=== PATIENT | male | born 1945 | race Caucasian/White ===

== ENCOUNTER → 2019-07-31 14:11 | Outpatient (POV) | payer MEDICARE, SELFPAY | PROVIDERS: Visit Provider Dermatology | DX: Z00.00 Encounter for general adult medical examination without abnormal findings (principal) ==

== ENCOUNTER → 2020-04-25 07:42 | Outpatient (CLI) | payer MEDICARE, SELFPAY ==
[2020-04-25 08:28] LABS: Basophils % 0.6 % (0.1-2.0); Eosinophils # 0.1 K/mm3 (0.0-0.4); Eosinophils % 2.1 % (0.1-12.0); Hematocrit 47.5 % (42.0-52.0); Lymphocytes # 1.5 K/mm3 (0.7-4.5); Lymphocytes % 28.4 % (10-50); Mean Corpuscular HGB Conc 33.7 g/dL (31.8-35.4); Mean Corpuscular Volume 94.9 fl (80-94); Mean Platelet Volume 8.8 fl (7.4-10.4); Monocytes # 0.5 K/mm3 (0.1-1.0); Monocytes % 8.4 % (1.7-9.3); Neutrophils # 3.3 K/mm3 (1.8-7.8); Neutrophils % 60.5 % (37.0-80.0); Platelet Count 150 K/mm3 (142-424); Red Cell Distribution Width 14.2 % (11.5-17.5); White Blood Count 5.4 K/mm3 (4.8-10.8)
[2020-04-25 09:21] LABS: Erythrocyte Sedimentation Rate 52 mm/hr (0-20)
[2020-04-25 12:45] LABS: Alanine Aminotransferase 24 U/L (12-78); Albumin Level 4.1 g/dl (3.5-5.0); Albumin/Globulin Ratio 1.4 (1.1-1.8); Alkaline Phosphatase 98 U/L (38-126); Anion Gap 12.1 mEq/L (5-15); Aspartate Amino Transferase 28 U/L (17-59); Bilirubin,Total 0.7 mg/dl (0.2-1.3); Blood Urea Nitrogen 20 mg/dl (9-20); Calcium 9.6 mg/dl (8.4-10.2); Carbon Dioxide 31 mmol/L (22.0-30.0); Chloride 100 mmol/L (98-107); Chol/HDL Ratio 4.7 (1-3.5); Cholesterol 211 mg/dl (140-200); Estimated Glomerular Filt Rate 73 ml/min (>60); GFR (African American) 88 ML/MIN (>60); Globulin 2.9 g/dL (1.3-3.2); Glucose 113 mg/dl (74-100); HDL Cholesterol 45 mg/dl (40-60); Potassium 5.1 mmoL/L (3.5-5.1); Sodium 138 mmol/L (136-145); Triglycerides 135 mg/dl (30-150); Uric Acid 7.8 mg/dl (3.5-8.5); VLDL Cholesterol 27 mg/dL (0-40)
[2020-04-25 12:56] LABS: Direct LDL Cholesterol 144.59 mg/dL (100-129)
== END ==
PROVIDERS: Visit Provider Internal Medicine Adolescent Medicine
DX: Z00.00 Encounter for general adult medical examination without abnormal findings (principal); M10.9 Gout, unspecified; R73.09 Other abnormal glucose; E78.00 Pure hypercholesterolemia, unspecified
CPT/HCPCS: 36415; 80053; 80061; 83036; 84550; 85025; 85651

== ENCOUNTER 2022-02-10 09:00 | Outpatient (RCR) | payer MEDICARE, SELFPAY ==
--- NOTE | 2021-12-17 13:07 | HMH.SLDYSPHA ---
Speech & Language Evaluation Speech/Language Dysphagia Evaluation Start: 12/17/21 12:38 Freq: ONCE Status: Active Protocol: Document 12/17/21 12:38 MIAH (Rec: 12/17/21 13:07 MIAH [id number]) Dysphagia Assess/Goals/Plan Assessment Date of Evaluation: 12/17/21 Evaluation Type Initial Certification Assessment/Problems Coughing while eating and drinking. Does Patient Qualify for Service No Qualify/Failure Comment No overt s/sxs of aspiration at this time. ASSEMBLY MANAGER discussed results of bedside swallow evaluation with patient and spouse as well as options i.e. MBSS versus clinical swallow evaluation results and recommendations. Patient and family opted for MBSS at this time. Recommendations PHYSICIAN CERTIFICATION: The specified therapy services are required, authorized, and reviewed every 30 days. Diet Recommendations Normal Liquid Type Recommendations Normal/Thin Dysphagia Swallow Precautions/Strategies Sitting Upright (90 deg),Small Bites and Sips Place Food on Either side of Mouth Plan Pt/Guardian verbally ack understanding Yes of dx/prognosis/goals Pt/Guardian verbally ack understanding Yes of/consent to tx prog G -code Required No Education Instructions provided CSE results and diet recommendations discussed with patient and family who expressed understanding. Pt/Caregiver able to recall information Able to recall/restate Reinforcement needed No General Information General Current Food Consistancy Regular,Thin Liquids Dentition Good Dentition Oxygen Status Room Air Facial Symmetry Symmetrical Patient Orientation Person,Place,Time,Situation Ability to Follow Directions Excellent Communication Ability Mild Impairment Voice Voice Quality Harsh,Hoarse,Loss of Voice Voice Pitch Mildly Low,Limited Variation, Pitch Breaks Voice Loudness Mildly Soft/Quiet Dysphagia:Food Presentation Evaluation Food Type Pureed,Mechanical Soft,Regular ,Liquid,Pudding Dysphagia Evaluation Summary Clinical swallow evaluation completed to analyze and asses oropharyngeal swallow. Patient was given trials of
--- NOTE | 2021-12-17 13:08 | HMH.SLVOIC ---
Speech & Language Evaluation Speech/Language Voice Evaluation Start: 12/17/21 12:38 Freq: once Status: Complete Protocol: Document 12/17/21 12:38 LEILANIANGELIATERISHANELLE (Rec: 12/17/21 13:07 MIAH [id number]) Voice/Dysarthria Assessment/Goals/Plan Assessment/Problems Date of Evaluation: 12/17/21 Assessment/Problems Dysphonia, presbylaryngis. Does Patient Qualify for Service Yes Qualify/Failure Comment Based on ENT diagnosis and voice evaluation, pt would benefit from skilled speech therapy services to address dysphonia and presbylaryngis. Recommendations Pt will be seen # times/week 1 for # weeks 8 Plan Anticipate reaching STG in # weeks 4 Anticipate reaching LTG in # weeks 8 Pt/Guardian verbally ack understanding Yes of dx/prognosis/goals Pt/Guardian verbally ack understanding Yes of/consent to tx prog G -code Required No Short Term Goals Educated on & eliminate vocal abuse Yes behaviors Use easy initiation of phonation for Yes prod of best voice 8/10 trials Inc loudness level wo inc laryngeal Yes tension 8/10 trials Inc easy initial of phonation using best Yes vocal quality habitually 8/10 [employer] Travel Counselor Goals Improve overall quality to increase/ Yes improve communication with family/ friends. Education Instructions provided NON MORSE INTERCEPT TECHNICIAN discussed results of the voice evaluation with both patient and spouse, both of whom expressed understanding. NON MORSE INTERCEPT TECHNICIAN provided pt with a handout with information to reduce vocally abusive behaviors. Pt/Caregiver able to recall information Able to recall/restate Reinforcement needed No SL Voice & Resonance Eval Communication/Cognition Orientation Name,Place,Day,Date,Year Ablility to follow commands 2-step commands Intelligibility Good Oral-Motor Structure/Function Structure/Function Yes: Buccal Labial Lingual Mandibular Velar Other Facial Symmetry Symmetrical Laryngeal Function STRNG: Throat Clearing WEAK: Voluntary Cough Dentition Good Dentition Resp Status/History Resp status/hx a concern? No Oxygen Delivery Method Room Air Mouth breather No Risk fatigue due to compromised res
== END 2022-02-10 09:05 | disposition home or self-care (01) ==
LOC: ST 09:00
PROVIDERS: Visit Provider Otolaryngology
DX: R49.0 Dysphonia (principal); J38.7 Other diseases of larynx
CPT/HCPCS: 92507; 92524; 92610

== ENCOUNTER → 2022-10-14 12:46 | Outpatient (CLI) | payer MEDICARE, SELFPAY ==
--- NOTE | 2022-10-14 12:53 | CA_ITS ---
FINAL REPORT TECHNIQUE: Multiple transverse and longitudinal images were performed of right the femoral-popliteal deep venous system with augmentation and compression maneuvers. CLINICAL HISTORY: .TOTAL KNEE POST OP 1 MONTH PAIN/EDEMA FINDINGS: Right lower extremity duplex ultrasound demonstrates normal flow in the deep venous system. There is no abnormal echogenicity to suggest thrombus. There is normal compression and augmentation. IMPRESSION: No evidence of right DVT. Reviewed, Interpreted and Dictated by Shivam Malik MD Transcribed by Alisa Sanchez Authenticated and [facility]
== END ==
PROVIDERS: PCP Family Medicine; Visit Provider Physician Assistant
DX: M25.561 Pain in right knee (principal); Z96.651 Presence of right artificial knee joint; R60.0 Localized edema
CPT/HCPCS: 93971

== ENCOUNTER 2022-12-28 09:00 | Outpatient (RCR) | payer MEDICARE, SELFPAY | END 2022-12-28 09:05 | disposition home or self-care (01) | LOC: PT 09:00 | PROVIDERS: Visit Provider Orthopaedic Surgery | DX: M25.561 Pain in right knee (principal); Z96.651 Presence of right artificial knee joint | CPT/HCPCS: 97010; 97014; 97016; 97110; 97140; 97163; 97164; 97530; G0283 ==

== ENCOUNTER 2023-03-03 10:00 | Outpatient (RCR) | payer MEDICARE, SELFPAY | END 2023-03-03 10:05 | disposition home or self-care (01) | LOC: PT 10:00 | PROVIDERS: PCP Family Medicine; Visit Provider Orthopaedic Surgery Adult Reconstructive Orthopaedic Surgery | DX: M16.11 Unilateral primary osteoarthritis, right hip (principal); Z96.641 Presence of right artificial hip joint | CPT/HCPCS: 97010; 97014; 97110; 97163; 97530; G0283 ==

== ENCOUNTER → 2023-05-04 07:49 | Outpatient (CLI) | payer MEDICARE, SELFPAY ==
--- NOTE | 2023-05-04 | CA_ITS ---
APPROVED REPORT Exam: Pharmacologic Technologist: Galilea Wright, Ht: 5 ft 9 in Wt: 200 lbs BSA: 2.07 m2 HR: 64 bpm BP: 133/87 mmHg Rhythm: NSR Indications: Right bundle branch block Medical History Medications: Aspirin,,,,, NiACIN,,,,, StOol softner,,,,, TUmeric,,,,, LanTropose,,,,, Timerol,,,,, Stress Test Details Test: LEXISCAN Reason for pharmacologic stress test: physical limitation. HR Resting HR: 66 bpm Max Heart Rate (APMHR): 141 bpm Max HR Achieved: 107 bpm Target HR (85% APMHR): 120 bpm % of APMHR: 76 Recovery HR: 81 bpm BP Resting BP: 133.0/87.0 mmHg Max BP: 149.0/81.0 mmHg Recovery BP: 147.0/81.0 mmHg ECG Resting ECG: NSR, RBBB, LPFB, NS ST abnormalities inferiorly Stress ECG: No significant ST changes Arrhythmia: None Clinical Exercise duration: 04:00 min Highest Stage Achieved: Stress ECG Conclusion Symptoms: Brief chest pressure. Nausea Arrhythmias/Ectopy: None. ST-T Changes: No significant ST changes Conclusion: Unremarkable Lexiscan stress test. Myoview images are reported separately. Test Summary REST . . . . . . . Resting REST 03:55 . . 66 . 133/ 87 . . Stage 1 . . . . . . . Myoview Injected Stage 1 01:00 . . 99 . . . . Stage 2 . . . . . . . Nausea Stage 2 . . . . . . . chest pressure Stage 2 01:00 . . 104 . 148/ 91 . . Stage 3 01:00 . . 98 . 149/ 81 . . Stage 4 01:00 . . 92 . 128/ 82 . Stop exercise at 04:00 RECOVERY 01:00 . . 96 . 136/ 83 . . RECOVERY 02:00 . . 92 . 135/ 85 . . RECOVERY 03:00 . . 84 . 147/ 81 . . RECOVERY 03:23 . . 87 . 147/ 81 . . Electronically signed by : Kayce King MD 05/08/2023 00:49:19
--- NOTE | 2023-05-04 07:54 | NM_ITS ---
APPROVED REPORT Exam: Nuclear Stress Test Indication: chest pain..soa..fatigue..family hx Patient Location: Outpatient Stress Tech: Galilea Wright [place] Tech:BRADLEY Kenyon RT(R)(N) Ht: 5 ft 9 in Wt: 200 lbs HR: 66 bpm BP: 133/87 mmHg BSA: 2.07 m2 TID: 1.12 BMI: 29.5 History: chest pain..soa..fatigue..family hx Procedure: Patient received 0.4 mg of intravenous Lexiscan, resting heart rate 66 bpm, resting blood pressure 133/87 mmHg, with Lexiscan maximum heart rate achieved was 107 bpm which is 85 % of the maximum predicted heart rate and blood pressure was 149/81 mmHg. With Lexiscan, patient denied any complaint of chest pain. The patient was not able to lay on his abdomen for prone images because of his back hurting. Cardiac Stress and Resting SPECT Images: Cardiac Stress and Resting SPECT images were obtained using technetium 99m Myoview 31.7 mCi stress and 10.22 mCi at rest. The patient could not lie on his abdomen. Therefore, prone stress imaging could not be performed. Raw images also demonstrate significant diaphragmatic overlap with the inferior border of the LV wall. These findings may affect the diagnostic interpretation of the study. Resting and stress imaging in supine position demonstrate a medium sized, moderate, fixed and tapered perfusion defect in the inferior LV wall. Findings are most suggestive of diaphragmatic attenuation. Gated imaging demonstrates normal global and regional LV systolic function. LVEF is calculated at 53%. Conclusion: Diaphragmatic attenuation is present. No definite evidence of fixed or reversible perfusion defects. Gated imaging demonstrates normal global and regional LV systolic function. LVEF is calculated at 53%. Electronically signed by : Kayce King MD 05/08/2023 00:54:03
== END ==
PROVIDERS: PCP Family Medicine; Visit Provider Family Medicine
DX: R07.9 Chest pain, unspecified (principal)
CPT/HCPCS: 78452; 93017; A9502; J2785

== ENCOUNTER 2024-12-28 10:02 | Outpatient (CLI) | payer MEDICARE, SELFPAY ==
--- OUTSIDE RECORDS SUMMARY | 2011-05-03 07:30 | XMS_ITS | Continuity of Care Document ---
Author Organization [facility] Address [address] [address] Phone Care Team Providers Care Percussion Instructor Name Role Phone Unavailable Unavailable Unavailable Allergies, Adverse Reactions, Alerts Substance Reaction Status Criticality No Known allergies Medications Medication Instructions Dosage Effective Dates (start - stop) Status Comments Vesicare 5 mg Tab take 1 tablet (5MG) by oral route every day 5 MG - Active aspirin 325 mg Tab, Delayed Release take 1 tablet (325MG) by oral route every day as needed 325 MG - Active Procedures Procedure Date URINALYSIS, AUTO W/SCOPE ASSAY OF URINE CREATININE OFFICE/OUTPATIENT VISIT, EST ASSAY OF PSA, TOTAL TESTOSTERONE TOTAL TESTOSTERONE BIOAVAILABLE TESTOSTERONE ROUTINE VENIPUNCTURE PSA, TOTAL TOTAL TESTOSTERONE BIOAVAILABLE TESTOSTERONE CYTOPATH, CONCENTRATE TECH CYTOPATH, CONCENTRATE TECH CYTOPATH, CONCENTRATE TECH CYTOPATH, CONCENTRATE TECH TISSUE EXAM BY PATHOLOGIST US GUIDE FOR BIOPSY Prostate, Transrectal BIOPSY OF PROSTATE OFFICE/OUTPATIENT VISIT, NEW URINALYSIS, AUTO W/SCOPE ASSAY OF URINE CREATININE HEMATOCRIT TOTAL TESTOSTERONE BIOAVAILABLE TESTOSTERONE ROUTINE VENIPUNCTURE Results Test Name Date and Time Measure Units Reference Range Abnormal Flag Status Comments Panel Description: PSA Preliminary PSA 7.29 ng/mL 0.05-4.00 H Preliminary Panel Description: PSA Final PSA 7.29 ng/mL 0.05-4.00 H Final Panel Description: BioAvail TEST Preliminary SHBG 43 nmol/L 11-80 Preliminary Testosterone -TOT 346 ng/dL 350-890 L Preliminary TESTOST,FREE ng/dL 4.7-24.4 Preliminar y BioAvail TEST ng/dL 130.0-680.0 Preliminary Panel Description: BioAvail TEST Final SHBG 43 nmol/L Final Testosterone -TOT 346 ng/dL 350-890 L Final TESTOST,FREE 5.9 ng/dL 4.7-24.4 Final BioAvail TEST 137 ng/dL 130.0-680.0 Final Advance Directives Directive Yes / No Effective Date File Name Resuscitation Not Answered N/A N/A Life Support Not Answered N/A N/A Intubation Not Answered N/A N/A Antibiotics Not Answered N/A N/A IV Fluid Support Not Answered N/A N/A Tube Feed Not Answered N/A N/A Other Directive N/A N/A WARNING:The information contained in this section is historical and is provided for information only and does not constitute a legal document or any assurance that the information is still accurate. Please verify the information with the burleson of the legal document before using it for clinical purposes. Encounters Encounter Description Practice Location Reason(s) For Visit Diagnoses Date Provider Providers Copied on Encounter OFFICE/OUTPA TIENT VISIT, EST [facility], [address] [place] [address], [id number], tel:[phone] [facility] Office Prostate check (chief complaint) Overactive bladder (chief complaint) Hypogonadi sm (chief complaint) Observation for other specified suspected conditionsElevat ed prostate specific antigen (psa)Other testicular hypofunctionOthe r testicular hypofunction 0 1 No Information [facility], [address] [place] [address], [id number], tel:[phone] No Information 0 No Information [facility], [address] [place] [address], [id number], tel:[phone] No Information 0 0 No Information OFFICE/OUTPA TIENT VISIT, NEW [facility], [address] [place] [address], [place], [place], [id number], tel:[phone] No Information 0 No Information [facility], [address], [place], [place], [id number], tel:[phone] No Information 0 No Information Family History Family Member Type Diagnosis Age At Onset Problem (finding) Family history of coronary arteriosclerosis Problem (finding) Family history of hyper tension Father Problem (finding) Cancer, brain Payers Payer name Insurance type Covered republican ID Authoriza tion(s) MEDICARE [place] [id number] [facility] P BL [id number] Social History Type Description Quantity Date Captured Comments Alcohol Use Details beer & wine 3 drinks weekly 1 Caffeine Use Details coffee 5 cups per day Tobacco Use Status No Information Smoking Status Never smoker Non-Smoking Tobacco Use Details : No Details Available : No Details Available Sex Male Vital Signs Date / Time: Height Weight BMI Pulse Rate Blood Pressure Temperature Respiratory Rate Body Surface Area Head Circumference Head Circ. Percentile Wt./[place]. Percentile BMI percentile Pulse Ox Inhaled Ox 12:08 PM 69.00 in 184.00 lbs 27.1 7 kg/m eter (2) 73 /min 127/81 mm[Hg] Chief Complaint And Reason For Visit From encounter dated '05/03/2011 11:30'. Prostate check (chief complaint) Overactive bladder (chief complaint) Hypogonadism (chief complaint) Reason For Referral Reason For Referral No Information History Of Present Illness Encounter Date Complaint History Of Prese nt Illness No Information Functional Status Date Functional Assessmen t No Information Instructions Date Instruction Additional Infor mation No Information Assessments Type Assessment Date No Information Mental Status Date Cognitive Assessment Orientation - [place] ed to time, place, person, situation. Patient Care Teams Name Effective Dates (start - stop) Status Members No Information
--- OUTSIDE RECORDS SUMMARY | 2024-11-20 02:13 | XMS_ITS | Continuity of Care Document ---
Author Organization [facility] Phone Care Team Providers Care Tire Trucker Name Role Phone SP HORTA Primary Attending SP HORTA Unavailable SP HORTA Admitting SP HORTA Primary Care ALLERGIES AND ADVERSE REACTIONS ALLERGIES AND ADVERSE REACTIONS Code System Allergy Substance Adverse Reaction Date Reaction (Severity) Comment Status Reported By Updated By No Known Allergies [id number] on December 15, 2023 8:05:47 PM [facility] FAMILY HISTORY RELATION: Father Status: Cause of : Unknown Age at : 70 SNOMED-CT Diagnosis Age At Onset [id number] Myocardial infarction RELATION: Mother Status: Cause of : Myocardial infarction Age at : 78 SNOMED-CT Diagnosis Age At Onset [id number] Heart valve replacement [id number] Renal failure syndrome MEDICATIONS HOME MEDICATIONS Status RXNORM NDC Medication Dose Route Frequency Dates Comments Reported By Updated By Drug Treatment Unknown DISCHARGE MEDICATIONS Status RXNORM NDC Medication Dose Route Frequency Dates Comments Physician Updated By No Discharge Medication Info rmation Available INPATIENT MEDICATIONS Status RXNORM NDC Medication Dose Route Frequency Rat e Quantity Dates Comments Physician Updated By No Inpatient Medication Info rmation Available SOCIAL HISTORY SOCIAL HISTORY SNOMED-CT Social History Element Description Effective Dates Offered Cessation Comment UpdatedBy [id number] Historical Tobacco smoking status Never Smoked Not Applicable [id number] on December 15, 2023 8:05:52 PM [facility] SOCIAL HISTORY - Gender Sex: Male SOCIAL HISTORY - Status : status i nformation is not available Intention in Next Year: intention information is not available SOCIAL HISTORY - Sexual Behavior Sexual Orientation Gender Identity SNOMED-CT Description SNO MED -CT Description Activity Level No of Partners Partner Type UpdatedBy Information is not available HEALTH CONCERNS Problems Concern Status Health Concern problem infor mation not available. Smoking Status Status Years Used Consumed packs p er day Health Concern smoking histo ry information not available. Family History Concern Status Health Concern family histor y information not available. 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 Code System Diagnosis Onset Date Diagnosis information is not available. ABSTRACT DIAGNOSES Code System Diagnosis Updated By R55 ICD10 SYNCOPE AND COLLAPSE [id number] on November 14, 2024 5:21:51 PM UTC R55 ICD10 SYNCOPE AND COLLAPSE [id number] on November 20, 2024 6:13:33 AM UTC CARE TEAM Care Tire Trucker Role SP HORTA Primary Attending SP HORTA Referring SP HORTA Admitting SP HORTA Primary Care CARE TEAM CARE electric motor repairing supervisor Role on Team Status Start Date End Date Update d By RULA DAVILA PCP normal November 14, 2024 5:21:52 PM UTC November 16, 2024 4:17:00 PM UTC [id number] on November 14, 2024 5:21:52 PM UTC RULA DAVILA Referring normal November 14, 2024 5:21:52 PM UTC November 16, 2024 4:17:00 PM UTC [id number] on November 14, 2024 5:21:52 PM UTC RULA DAVILA Attending normal November 14, 2024 5:21:52 PM UTC November 16, 2024 4:17:00 PM UTC [id number] on November 14, 2024 5:21:52 PM UTC RULA DAVILA Admitting normal November 14, 2024 5:21:51 PM UTC November 16, 2024 4:17:00 PM UTC [id number] on November 14, 2024 5:21:52 PM UTC
--- OUTSIDE RECORDS SUMMARY | 2024-11-29 08:15 | XMS_ITS | Encounter Summary ---
Author Organization Healthcare Address [address] [place] [address] Care Team Providers Care Grommet Machine Operator Name Role Phone Sunny Bolanos MD Primary Care Provider [phone] Encounter Details Date Type Department Care Team (Late st Contact Info) Description 11/29/2024 8:15 AM EDT Office Visit [facility] [address] [place] [address] Nora Escalante MD [address] [place] [address] Primary open-angle glaucoma, left eye, severe stage (Primary Dx); Primary open angle glaucoma of right eye, mild stage Social History Tobacco Use Types Packs/Day Years Used Date Smoking Tobacco: Never Passive Smoke Exposure: Never Smokeless Tobacco: Never Tobacco Cessation:Counseling Given: Not Answered Alcohol Use Standard Drinks/Week Comments Not Currently 0 (1 standard drink = 0.6 oz pure alcohol) Alcoholic Drinks/day: Occasional alcohol use Sex and Gender Information Value Date Recorded Sex Assigned at Not on file Legal Sex Male 6:01 PM EDT Gender Identity Not on file Sexual Orientation Not on file documented as of this encounter Miscellaneous Notes * Progress Notes - Nora Escalante MD - 11/29/2024 8:15 AM EDT 8 month follow-up of severe POAG OS, mild OD for many years. Had SLT OU 01/19/24. Current drops are Latanoprost nightly and Alvarez q AM OU. ARx, dilate, OCT RNFL OU today if not already done at [facility] since late 2022 - if done, print those He reports: vision has been stable. Denies eye pain, pressure and headaches. Report occasional floaters. Confirms usage of Latanoprost nightly and Alvarez q AM OU. Lately he has been having some recurrent episodes of visual phenomenon; he's had them before but then not for a long time until recently. Sudden onset of squiggly rainbow lights that gradually movethen fade away. Occasional mild pain or nausea in association. No recent visits at [facility]. Getting gel injections L knee At last visit reported: blurred vision when reading. Patient is currently using latanoprost once daily in both eyes and timolol once daily in both eyes. Patient reports jagged lines in both eyes. No headaches, they are a nuisance but he can tolerate them. No recent changes. Had r knee replacement surgery 09/20/22, hip surgery January 2023. PSA was found to be high after the surgery but no further treatment needed. At last visit he reported seeing colored lines for over a year now in both eyes but lately seeing them more often in both eyes. Was told by his PCP that those are related to his migraines. Got a sample from his PCP that alleviated his ocular migraines, has not gotten a prescription yet. Had been tapering the oral prednisone and will try to use only for flare-ups Per [facility] notes, IOPs were 13 T [address] on 12/11/21. [address]. Chi worried about inferior progression on OCT OU. Possible central progression OS on last HVF. NOTE: he previously got dizzy from Combigan, but has tolerated Timolol alone. Glaucoma History Summary: Diagnosis: Severe POAG LE, early RE Length of Diagnosis: 5-6 years Maximum IOP OD: 32 OS: 32. Goal IOPs OD: 13 or less OS: 11 or less Pachymetry OD: 575 OS: 575. Current Meds: Timolol BID OU, Latanoprost nightly OU Drop Failure: combigan and lumigan cause dizziness; simbrinza cause a bad mood from the eye irritation, Rocklatan expensive Surgery/Procedures OD phaco/Kahook/ECPC 05/03/17 OS: phaco/iStent/ECPC 02/15/17. SLT History OD: 03/15/16 OS:. 03/15/16. Gonioscopy OD: 02/04/16: CBB, 3-4+ TM pigment OS: 02/04/16: CBB, 3-4+ TM pigment. Last HVF: December 2023 OD: enlarged blind spot, patchy supr depression (MD -1.7 dB), reliability good,suspicious for progression OS: large infr arcuate defect and supr nasal step involving fixation (MD-20.3 dB), reliability good, suspicious for progression November 16, 2022 OD: full (MD +0.42 dB), reliability good, stable OS: large infr arcuate with total nasal quadrant loss involving fixation, superior nasal step (MD -17.8 dB), reliability good, stable 10/23/21 OD: minimal patchy depression MD -2.0 OS: large arcuate defects infr > supr. Nearly complete loss of the nasal field, involving fixation. 12/31/19: GHT border, MD +0.87; dense nasal changes involving fixation, MD -15.15, fovea 36; stable compared to 2016 Last RNFL: May 19, 2023 OD: polar thinning, avg 68 um. likely stable, but trend toward thinningcompared to previous OS: polar and temporal thinning, avg 51 um. stable compared to previous. Imagequality good OU. 10/23/21 OD: polar thinning, 68 um OS: polar and temp thinning, 51 um 12/31/19: S/I<1%, N<5%, avg 67; S/N/I<1%, T<5%, avg 44 Family History: no definite hx of glaucoma Trauma: denies Steriod Use or Medications of Interest: Denies Medical History of Significance: Denies Headaches or Raynaud's: frequent ocular migraines. Comments: - from [place] originally ([facility]) - lives in [place] (bought a farm a few years ago) Blood pressures always low . Has a history of ocular migraines but no headaches. Prone to orthostatic hypotension. Had recent vascular screening including carotid screening at a health fair, everything was normal. Assessment/Plan Diagnoses and all orders for this visit: Primary open-angle glaucoma, left eye, severe stage Primary open angle glaucoma of right eye, mild stage 1) POAG BE, LE > RE: pigmentary component based on gonioscopy, but no other sequela on exam to suggest classic PDG or PXG. 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 Advanced loss with little reserve OS. Could have a vascular component based on his history of migraines, low blood pressures and orthostatic hypotension. - GOAL IOP 13 or less OD, 11 or less OS - SLT OU performed 03/15/16, good candidate for repeat SLT if needed. - phaco/iStent/ECPC LE 02/15/17 - phaco/Kahook/ECPC RE 05/03/17 - Last HVF stable with dense nasal arc OS - RNFL possibly progressing per Dr. Chi. - with his history of migraines and systemic hypotension, we need to stay vigilant for other systemic issues possibly contributing to optic nerve stress, especially vascular disease. Recent health fair screening was reassuring. 11/16/22: stable exam and HVF with IOPs at goal, reading 11 mmHg OU today. Has advanced loss OS as previously noted. Tolerating Latanoprost and Timolol well. Discussed option of SLT but he prefers to stay on this drop regimen for now. No longer will need steroid injections since he had knee surgery. 05/20/23: stable DFE and excellent IOPs today, OCT also likely stable OU. There has been a gradual RNFL progression OD over many years, but stable recently. Rec continue Alvarez q AM , LP nightly OU. Stable pseudophakia and ocular migraines. 01/19/24: IOPs trending higher OU today. HVFs trending a bit worse OU, involves fixation OS. With potential side effects of increasing drops, recommend repeat SLT OU (most recent SLTs were 2016). After discussing risks and benefits, he would like to proceed today while he is here. 04/19/24: post SLT OU. IOPs are significantly better. Rec continue this regimen. 11/29/24: vision, exam and IOPs are stable but recently has been having more frequent ocular migraines (very classic description) OCT today is stable to previous. Myopic fundus also stable OU, with significant PPA OU, We reviewed his history for recent lifestyle changes that could explain the migraine frequency, no obvious triggers found. We discussed option of increasing Tiom to BID to see if additional beta donny helps. 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 OCT RNFL on follow-up in 2024 - offer updated MRx on arrival cc: Alvin Chi. documented in this encounter Plan of Treatment Upcoming Encounters Date Type Department Care Team (Late st Contact Info) Description 06/06/2025 11:00 AM EST Office Visit [facility] [address] [place] [address] Nora Escalante MD [address] [facility] [address] [place] [address] documented as of this encounter Procedures Procedure Name Priority Date/Time Associated Diagnosis Comments OCT, OPTIC NERVE - OU - BOTH EYES Routine 12/08/2024 9:36 PM EDT Primary open-angle glaucoma, left eye, severe stage Primary open angle glaucoma of right eye, mild stage documented in this encounter Results * OCT, Optic Nerve - OU - Both Eyes (12/08/2024 9:36 PM EDT) Anatomical Region Laterality Modality Head Optical Coherenc e Tomography Narrative 12/08/2024 9:36 PM EDT Right Eye Images reviewed and comparison made to baseline. To assess optic nerve function and for use in future follow-up. Left Eye Images reviewed and comparison made to baseline. To assess optic nerve function and for use in future follow-up. Notes November 2024 OD: polar thinning, avg 71 um. stable compared to previous OS: polar and temporal thinning, avg 54 um. stable compared to previous. Image quality good OU. us Nora Escalante MD OPHTH TOMOGRAPHY Final Resul t documented in this encounter Visit Diagnoses Diagnosis Primary open-angle glaucoma, left eye, severe stage- Primary Primary open angle glaucoma of right eye, mild stage documented in this encounter Additional Health Concerns Assessment Noted Time A fall risk assessment has been complete d for the patient 11/29/2024 8:31 AM EDT A Body Mass Index follow-up plan has been documented for the patient 12/08/2024 9:47 PM EDT documented as of this encounter Care Teams Grommet Machine Operator Relationship Specialty Start Date End Date Sunny Bolanos MD [facility] [address] [place] [id number] PCP - General 11/12/21 documented as of this encounter
--- OUTSIDE RECORDS SUMMARY | 2024-12-03 00:38 | XMS_ITS | Continuity of Care Document ---
Author Organization [facility] Phone Care Team Providers Care Color Stripper Name Role Phone GOMEZ RUELAS Primary Attending SP HORTA Primary Care SP HORTA Unavailable GOMEZ RUELAS Admitting ALLERGIES AND ADVERSE REACTIONS ALLERGIES AND ADVERSE REACTIONS Code System Allergy Substance Adverse Reaction Date Reaction (Severity) Comment Status Reported By Updated By No Known Allergies [id number] on December 15, 2023 8:05:47 PM [facility] FAMILY HISTORY RELATION: Father Status: Cause of : Unknown Age at : 70 SNOMED-CT Diagnosis Age At Onset [id number] Myocardial infarction RELATION: Mother Status: Cause of : Myocardial infarction Age at : 78 SNOMED-CT Diagnosis Age At Onset [id number] Heart valve replacement [id number] Renal failure syndrome RESULTS Patient: NINO Rosenbaum JR Date of : [birth year] LABORATORY RESULTS Information is not available LABORATORY NARRATIVE RESULTS Information is not available RADIOLOGY RESULTS ORDER 100: VENOUS DUPLEX US LWR LT EXT (LOINC: 21504-6) ORDER DATE: November 29, 2024 1:58:00 PM [facility] PERFORMING LAB: [address] [id number] Final Result Date: November 29 2:22:[address] [address] Name: GLENN ONEILL Exam Date: 11/29/2024 : 1945 Age 79 years Gender: M Physician: GOMEZ RUELAS Facility: [facility] Facility HSV: Outpatient Exam: VENOUS DUPLEX US LWR LT EXT Duplex ultrasound deep venous system left lower extremity. HISTORY: Left leg pain. History of deep venous thrombosis left lower extremity. FINDINGS: Evaluation performed from groin to calf. Normal compression throughout. Color flow throughout. Normal augmentation popliteal vein and common femoral vein. No definite evidence for intraluminal filling defect or deep venous thrombosis. IMPRESSION: No evidence for deep venous thrombosis left lower extremity. Electronically signed by: Flako Gutierrez MD 11/29/2024 02:34 PM EDT RP Dictated By: Flako Gutierrez Transcribed By: Transcribed On: 11/29/2024 10:22 AM Electronically signed by: Flako Gutierrez 11/29/2024 Thank you for referring GLENN ONEILL to [facility]. Legally authenticated by CARMINA RODRÍGUEZ 2024-11-29 10:22:00 PATHOLOGY NARRATIVE RESULTS Information is not available MICROBIOLOGY RESULTS No Micro Labs/Results Exist for Patient BLOOD ADMIN RESULTS Information is not available MEDICATIONS HOME MEDICATIONS Status RXNORM NDC Medication [...] Description Effective Dates Offered Cessation Comment UpdatedBy [id number] Historical Tobacco smoking status Never Smoked Not Applicable [id number] on December 15, 2023 8:05:52 PM [facility] SOCIAL HISTORY - Gender [...] available. ENCOUNTERS ENCOUNTER INFORMATION Reason for Visit ULS Admission November 29, 2024 1:48:[address] [address] Discharge November 29, 2024 1:48:00 PM [facility] DISCH ARGED TO HOME OR SELF CARE ENCOUNTER DIAGNOSES Notes information is not chandni ilable. Code System Diagnosis Onset Date Diagnosis information is not available. ABSTRACT DIAGNOSES Code System Diagnosis Updated By M79.605 ICD10 PAIN IN LEFT LEG [id number] on December 03, 2024 4:37:01 AM [place] M79.605 ICD10 PAIN IN LEFT LEG [id number] on December 03, 2024 4:37:01 AM [facility] CARE TEAM Care Color Stripper Role GOMEZ RUELAS Primary Attending SP HORTA Primary Care SP HORTA Referring GOMEZ RUELAS Admitting CARE TEAM CARE corpsman Role on Team Status Start Date End Date Update d By RULA DAVILA Referring normal November 29 4:00:00 AM [facility] November 29, 2024 1:48:00 PM [facility] [id number] on November 29, 2024 1:50:48 PM [place] RULA DAVILA PCP normal October 30, 025 3:09:05 PM [facility] November 29, 2024 1:48:00 PM [facility] [id number] on November 29, 2024 1:50:48 PM [place] JESSENIA DAVILA Attending normal October 30, 025 3:09:05 PM [facility] November 29, 2024 1:48:00 PM [facility] [id number] on November 29, 2024 1:50:48 PM [facility] JESSENIA DAVILA Admitting normal October 30, 2 025 3:09:05 PM [facility] November 29, 2024 1:48:00 PM [facility] [id number] on November 29, 2024 1:50:48 PM [facility]
--- OUTSIDE RECORDS SUMMARY | 2024-12-08 21:35 | XMS_ITS | Encounter Summary ---
Author Organization [facility] Address [address] [place] [address] Care Team Providers Care Hooker Machine Tender Name Role Phone Sunny Bolanos MD Primary Care Provider [phone] Encounter Details Date Type Department Care Team (Late st Contact Info) Description 12/08/2024 9:35 PM EDT Ancillary Procedure [facility] [address] [place] [address] Social History Tobacco Use Types Packs/Day Years Used Date Smoking Tobacco: Never Passive Smoke Exposure: Never Smokeless Tobacco: Never Alcohol Use Standard Drinks/Week Comments Not Currently 0 (1 standard drink = 0.6 oz pure alcohol) Alcoholic Drinks/day: Occasional alcohol use Sex and Gender Information Value Date Recorded Sex Assigned at Not on file Legal Sex Male 6:01 PM EDT Gender Identity Not on file Sexual Orientation Not on file documented as of this encounter Plan of Treatment Upcoming Encounters Date Type Department Care Team (Late st Contact Info) Description 06/06/2025 11:00 AM EST Office Visit [facility] [address] [place] [address] Nora Escalante MD [address] [facility] [address] [place] [address] documented as of this encounter [...] t documented in this encounter Visit Diagnoses Not on filedocumented in this encounter Additional Health Concerns Assessment Noted Time A fall risk assessment has been complete d for the patient 11/29/2024 8:31 AM EDT A Body Mass Index follow-up plan has been documented for the patient 12/08/2024 9:47 PM EDT documented as of this encounter Care Teams Hooker Machine Tender Relationship Specialty Start Date End Date Sunny Bolanos MD [facility]8 [facility] [address] [place] [address] PCP - General 11/12/21 documented as of this encounter
--- OUTSIDE RECORDS SUMMARY | 2024-12-28 10:05 | XMS_ITS | Encounter Summary ---
Author Organization [facility] Address [address] [place] [address] Care Team Providers Care Associate Professor Of Counseling Name Role Phone Sunny Bolanos MD Primary Care Provider [phone] Encounter Details Date Type Department Care Team (Late st Contact Info) Description 10/13/[address] [facility] Central Scheduling [address] [place] [address] Bernadine Polk PA-C [facility] [place] [address] Status post right knee replacement (Primary Dx) Social History Tobacco Use Types Packs/Day Years Used Date Smoking Tobacco: Never Smokeless Tobacco: Never Alcohol Use Standard Drinks/Week Comments Never 0 (1 standard drink = 0.6 oz pur e alcohol) Housing Stability Vital Sign Answer Cy e Recorded In the last 12 months, was t here a time when you were not able to pay the mortgage or rent on time? No 09/20/2022 In the last 12 months, how many places have you lived? 1 09/20/2022 In the last 12 months, was t here a time when you did not have a steady place to sleep or slept in a nursing home (including now)? No 09/20/2022 Sex and Gender Information Value Date Recorded Sex Assigned at Not on file Legal Sex Male 11:49 AM TRANSPORT AIDE Gender Identity Not on file Sexual Orientation Not on file COVID-19 Exposure Response Date Recorded In the last 10 days, have yo u been in contact with someone who was confirmed or suspected to have Coronavirus/COVID-19? No / Unsure 09/20/2022 12:35 PM EST documented as of this encounter Plan of Treatment Not on file documented as of this encounter Visit Diagnoses Diagnosis Status post right knee replacement- Primary documented in this encounter Care Teams Associate Professor Of Counseling Relationship Specialty Start Date End Date Sunny Bolanos MD [address] [address] PCP - General Family Medicine 09/14/22 documented as of this encounter
--- OUTSIDE RECORDS SUMMARY | 2024-12-28 10:05 | XMS_ITS | Clinical Summary ---
Author Organization [employer] [facility] Address [address] [place] [address] Care Team Providers Care Auger Mill Operator Name Role Phone Sunny Bolanos MD Primary Care Provider [phone] Allergies No known active allergies Medications timolol (TIMOPTIC) 0.5 % ophthalmic solution Apply 1 drop to eye(s) daily. 07/09/2022 Active latanoprost (XALATAN) 0.005 % ophthalmic solution Apply 1 drop to eye(s) daily. 08/16/2022 Active zinc sulfate (ZINC-15 ORAL) Take 30 mg by mouth daily. Active SAW PALMETTO ORAL Take 450 mg by mouth daily. Active ondansetron (ZOFRAN) 4 MG tablet Take 1 tablet (4 mg total) by mouth 4 (four) times daily as needed for Nausea for up to 60 doses. 30 tablet 09/21/2022 Active meloxicam (MOBIC) 7.5 MG tablet Take 1 tablet (7.5 mg total) by mouth daily. 30 tablet 09/21/2022 Active Social History Tobacco Use Types Packs/Day Years [...] place to sleep or slept in a fpc (including now)? No 09/20/2022 Interpersonal Safety Answer Date Record ed Family or friends hurt you Not on file 08/13 Family or friends insult you Not on file Family or friends threaten you Not on file 0 08/13/2023 Family or friends scream or curse at you Not on file 08/13/2023 Housing Stability Answer Date Recorded Living situation today Not on file Living situation problems Not on file 2023 Family and Community Support Answer Cy e Recorded Help with Day to Day Activities Not on file 08/13/2023 Feeling Lonely or Isolated Not on file 08/13 Educational Attainment Answer Date Kris rded Speak language other than Citizen Of [place] at home Not on file 08/13/2023 Want help with school or training Not on file 08/13/2023 Depression Answer Date Recorded PHQ-2 Risk Not on file 08/13/2023 Disabilities Answer Date Recorded Difficulty concentrating Not on file 024 Difficulty doing errands alone Not on file 0 08/13/2023 Substance Use Answer Date Recorded Used prescription meds for non-medical reasons N ot on file 08/13/2023 Used illegal drugs past 12 months Not on file 08/13/2023 Sex and Gender Information Value Date Recorded Sex Assigned at Not on file Legal 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[employer] Gender Identity Not on file Sexual Orientation Not on file Last Filed Vital Signs Vital Sign Reading Time Taken Comments Blood Pressure 144/92 09/21/2022 10:05 AM EST Pulse 85 09/21/2022 10:05 AM EST Temperature 36.5 C (97.7 F) 09/21/2022 10:05 AM EST Respiratory Rate 18 09/21/2022 5:51 AM EST Oxygen Saturation 95% 09/21/2022 10: 05 AM EST Inhaled Oxygen Concentration - - Weight 94.3 kg (207 lb 14.4 oz) 023 12:46 PM EST Height 175.3 cm (5' 9 ) 09/20/2022 12:4 6 PM EST Body Mass Index 30.7 09/20/2022 12:46 PM EST Plan of Treatment Health Maintenance Due Date Last Done Comments Medicare Initial AWV G0438 Depression Screening (12+) 1955 DTAP/TDAP/TD VACCINES (1 - Tdap) 1962 Shingles Vaccine (Zoster) (1 of 2) 1993 Respiratory Syncytial Virus (RSV) Adult or (1 - 1-dose 75+ series) 2018 Pneumococcal 50+ years (2 of 2 - PCV) 09/01/202002/2020 Tobacco Cessation Counseling and Screening (12+) 09/20/2023 09/20/2022 COVID-19 VACCINE ( - season) 03/25/202409/2020, 08/28/2020 Falls Risk Screening 07/25/2024 Influenza Vaccine (Season Ended) 2025 07/15/20 21, 04/24/2020 Medical Devices Implanted Type Area Surface Water Manager Device Identifier Shelf Expiration Date Model / Serial / Lot Cement Bone Smplx 6194-1-001 - [id number] Implanted:Qt y: 1 on 09/20/2022 at [facility] IMPLANTS Right: Knee DALILA:[employer] [id number] 01/22/2024 6194-1-00 / / [id number] D Cement Bone Smplx 6194-1-001 - [id number] Implanted:Qt y: 1 on 09/20/2022 at [facility] IMPLANTS Right: Knee DALILA:[employer] [id number] 02/22/2024 6194-1-00 / / [id number] D Psn Art Surf 14 Ve8-11gh 79-0144-413- 14 - [id number] Implanted:Qt y: 1 on 09/20/2022 at [facility] TOTAL JOINT CONSTRUCT Right: Knee MAYDA:MAYDA [id number] 01/26/2026 [id number] 04-07 [id number] Tib Cemented Stem 5d Sz G R 17-0665-227- 02 - [id number] Implanted:Qt y: 1 on 09/20/2022 at [facility] TOTAL JOINT CONSTRUCT Right: Knee MAYDA:MAYDA [id number] 05/24/2032 42-5320-0 79-02 / / [id number] Knee Fem Psn Cr Cmt Sz11 R [id number]- 02 - [id number] Implanted:Qt y: 1 on 09/20/2022 at [facility] TOTAL JOINT CONSTRUCT Right: Knee MAYDA:MAYDA [id number] 05/15/2032 42-5026-0 70-02 / / [id number] Insurance [facility] MEDICARE ADVANTAGE Advance Directives For more information, please contact: [phone] Documents on File Type Date Recorded Patient Pulverizer Feeder Expl anation Advance Directives and Livin g Will 09/20/2022 10:38 AM * Full Code (Latest Code Status on File) Date Activated Date Inactivated Comments 09/20/2022 5:07 PM 09/21/2022 5:08 PM * Full Code Date Activated Date Inactivated Comments 09/20/2022 11:01 AM 09/20/2022 5:06 PM Care Teams Auger Mill Operator Relationship Specialty Start Date End Date Sunny Bolanos MD [facility] [address] [address] PCP - General Family Medicine 09/14/22
--- OUTSIDE RECORDS SUMMARY | 2024-12-28 10:05 | XMS_ITS | Encounter Summary ---
Author Organization Healthcare Address [address] [place] [address] Care Team Providers Care Director Of Marketing Analytics Name Role Phone Sunny Bolanos MD Primary Care Provider [phone] Encounter Details Date Type Department Care Team (Latest Contact Info) Description 11/29/2024 Travel Social History Tobacco Use Types Packs/Day Years [...] Description 06/06/2025 11:00 AM EST Office Visit [facility] [address] [place] [address] Nora Escalante MD [address] [place] [phone] documented as of this encounter Visit Diagnoses Not on filedocumented in this encounter Additional Health Concerns Assessment Noted Time A fall risk assessment has been complete d for the patient 11/29/2024 8:31 AM EDT A Body Mass Index follow-up plan has been documented for the patient 12/08/2024 9:47 PM EDT documented as of this encounter Care Teams Director Of Marketing Analytics Relationship Specialty Start Date End Date Sunny Bolanos MD [facility] [address] [place] [address] PCP - General 11/12/21 documented as of this encounter
--- OUTSIDE RECORDS SUMMARY | 2024-12-28 10:05 | XMS_ITS | Data Portability ---
Author Organization ARIANNA myles MD, Main Office Address [address] [facility] [address] [place] [address] Care Team Providers Care Animal Trainer Name Role Phone SP HORTA Primary Care Provider Assessment No assessment recorded. Plan of Treatment Reminders Order Date Submit Date Provider Last Modified By Organization Details Last Modified Time Details Appointments None recorded. Lab None recorded. Referral None recorded. Procedures None recorded. Surgeries None recorded. Imaging None recorded. Medication Orders propranolol 20 mg tablet 2021 022 [id number], [address] [facility], [place], [address], 12:22:59 Patient TargetsNo targets recorded. Patient Instructions Encounter Date Encounter Id Patient Instructions Last Modified By Organization Details Last Modified Time 02/12/2022 [id number] TREMOR EDUCATION Not availabl e 02/12/2022 12:22:52 Finding has been discussed with the patient and his in detail. Propranolol 20 mg twice a day. Return as needed. Not available 02/12/2022 12:30:17 Reason for Referral None Reported. Procedures Surgical History Date Name Laterality Status Provider Name and Address Organization Details Recorded Time total replacement of hip completed Stacey Cordero MD 02/12/2022 12:13:18 Hernia Repair completed Stacey Cordero MD 02/12/2022 12:13:24 Imaging Results None recorded. Procedure Notes None recorded. Medical Equipment None Reported. Allergies No known drug allergies Medications Name Sig Start Date Stop Date Status Note LastModified by Organization Details LastModified Time latanoprost 0.005 % eye drops active Not Available Not Available Not Available meloxicam 15 mg tablet active Not Available Not Available No t Available prednisone 20 mg tablet active Not Available Not Available Not Available hydrocodone 10 mg-acetamino phen 325 mg tablet 02/12 completed Not Available Not Available Not Available timolol maleate 0.5 % eye drops active Not Available Not Available Not Available propranolol 20 mg tablet One tablet twice a day for tremor active Not Available Not Available No t Available hydroxyzine pamoate 25 mg capsule TAKE 1 CAPSULE BY MOUTH THREE TIMES DAILY FOR 7 DAYS active Not Available Not Available No t Available Vitals Date Recorded Body height Body mass index (BMI) Body weight Heart rate Respiratory rate Systolic blood pressure Diastolic blood pressure Provider Name and Address Organization Details Last Updated DateTime 2 175.26 cm 30.3 kg/m2 47632.4 4 g 82 /min 17 /min 137 mm[Hg] 84 mm[Hg] Seth Cordero MD [address] [facility], [facility] [address], [place], [address] 0ARIANNA MD 2 12:28:05 Social History Question Answer Notes LastModified by Organizat ion Details LastModified Time Tobacco Smoking Status Never Smoker Stacey Perkins ARIANNA mena MD 02/12/2022 12:12:58 Do You Have An Advance Directive? Yes Information n ot available 02/12/2022 In The 14 Days Before Symptom Onset, Have You Had Close Contact With A Laboratory-confirm ed COVID-19 While That Case Was Ill? No Information n ot available 02/12/2022 In The 14 Days Before Symptom Onset, Have You Had Close Contact With A Person Who Is Under Investigation For COVID-19 While That Person Was Ill? No Information not available 02/12/2022 Have You Been To An Area Known To Be High Risk For COVID-19? No Information not available 02/12/2022 What Was The Date Of Your Most Recent Tobacco Screening? 02/12/2022 Information not available 02/12/2022 Sex: Unknown Functional Status Question Answer Note LastModified by Organization D etails LastModified Time What is your level of alcohol consumption? None Information not available 02/12/2022 Are you able to walk? YESWOREST Information not available 02/12/2022 Mental Status None recorded. Family History Relationship Description Onset Age of this Age Resolved Age Notes LastModified by Organization Details LastModified Time Father Heart disease Not available 2021 12:12:37 Medical History Condition Response Migraines Y Glaucoma Y Arthritis Y Past Encounters Encounter ID Performer Location Encounter Start Date Encounter Closed Date Diagnosis/Indication Diagnosis SNOMED-CT Code Diagnosis ICD10 Code Diagnosis Note [id number] Seth Cordero MD Main Office [address], [facility] [address] [place] [address] 02/12/2022 11:38:42 02/12/2022 12:35:19 Essential tremor 880464843 G25.0 The patient is a 76-year-ol d white male. He has essential tremor. 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 He is accompanied by his for consultation tremor that interferes with his handwriting, his ability to drink from a glass and to use utensils. He has no difficulty with ambulation. He has no rigidity or bradykinesia. He does a chronic back pain and arthritic right knee. The tremor has been going on for over 10 years. There is no family history of tremor. Seth Cordero MD [address], [facility] [address], [place], [address], [facility] - Seth Cordero MD 02/12/2022 12:30:44
--- OUTSIDE RECORDS SUMMARY | 2024-12-28 10:05 | XMS_ITS | Clinical Summary ---
Author Organization [facility] Address [address] [place] [address] Care Team Providers Care Recreation Program Coordinator Name Role Phone Sunny Bolanos MD Primary Care Provider [phone] Allergies Active Allergy Reactions Criticality Noted Date Comments Brinzolamide-Brimonidin e Other - please document in the comment field Low 11/16/2017 passed out Lubiprostone Dizziness High 11/28/2015 Timolol Maleate Other - please document in the comment field Low 11/16/2017 passed out from COMBIGAN, not Timolol alone Medications budesonide-form oterol (Symbicort) 160-4.5 MCG/ACT inhaler 4 Active Xarelto 10 MG tablet 4 Active timolol (Timoptic) 0.5 % ophthalmic solutionIndicat ions:Primary open angle glaucoma of right eye, mild stage Administer 1 drop into both eyes 1 (one) time each day in the morning. 15 mL 3 4 Active latanoprost (Xalatan) 0.005 % ophthalmic solution Administer 1 drop into both eyes every night. 7.5 mL 3 4 Active Active Problems Problem Noted Date Diagnosed Date Primary open-angle glaucoma, left eye, severe st age 0601/19/2024 Arthritis of right hip 01/31/2023 Primary localized osteoarthritis of right hip Hip arthritis 11/23/2022 Overview (11/23/2022): Added automatically from request for surgery [id number] Lumbar spondylosis 12/14/2018 Status post total replacement of left hip 2017 Arthritis of knee 12/15/2017 Retention of urine 12/07/2017 Hip pain 11/04/2017 After cataract not obscuring vision, bilateral 1 Benign prostatic hyperplasia without urinary obs truction 12/02/2016 COLVIN (dyspnea on exertion) 09/27/2016 Precordial pain 09/27/2016 Primary open angle glaucoma of right eye, mild s tage 02/04/2016 Increased frequency of urination 11/28/2015 Lower urinary tract symptoms due to benign prostatic hyperplasia 11/28/2015 Raised prostate specific antigen 11/28/2015 Urinary urgency 11/28/2015 Encounters Date Type Department Care Team Description 12/08/2024 9:35 PM EDT Ancillary Procedure [facility] [address] [place] [address] 11/29/2024 8:15 AM EDT Office Visit [facility] [address] [place] [address] Nora Escalante MD Primary open-angle glaucoma, left eye, severe stage (Primary Dx); Primary open angle glaucoma of right eye, mild stage 11/29/2024 Travel from Last 3 Months Immunizations Immunization Administration Dates Next Due Influenza Vaccine, Quadrivalent, Adjuvanted 06/25 Influenza, high-dose, quadrivalent 04/24/2020 Influenza, injectable, quadrivalent 05/02/2018 Moderna COVID-19 Vaccine (Digital Production Operator) 12+ years 09/2020,08/28/2020 Pneumococcal Polysaccharide PPV23 09/01/2019 Family History Medical History Relation Name Comments Cardiac disorder Father Cardiac disorder Mother Cataracts Other Anesthesia problems Neg Hx Malig Hyperthermia Neg Hx Relation Name Status Comments Father Mother Other Social History Tobacco Use Types Packs/Day Years [...] Sign Reading Time Taken Comments Blood Pressure 128/87 12/15/2023 2:04 PM EDT Pulse 60 12/15/2023 2:04 PM EDT Temperature 36.2 C (97.2 F) 01/31/2023 10:15 AM EDT Respiratory Rate 18 12/15/2023 2:04 PM EDT Oxygen Saturation 92% 12/15/2023 2:04 PM EDT RA Inhaled Oxygen Concentration - - Weight 91.4 kg (201 lb 8 oz) 03/15/2023 11:29 AM EDT Height 175.3 cm (5' 9 ) 03/15/2023 11:29 AM EDT Body Mass Index 29.76 03/15/2023 11:29 AM EDT Plan of Treatment Upcoming Encounters Date Type Department Care Team (Late st Contact Info) Description 06/06/2025 11:00 AM EST Office Visit [facility] [address] [place] [address] Nora Escalante MD [address] [address] Health Maintenance Due Date Last Done Comments [facility]-Depression Screening 1945 [facility]-Medicare Annual Wellness (AWV) 1945 [facility]-Infant/Child/Adol SDOH Screenings 1943 [facility]- SDOH Screenings 1961 [facility]-Adult SDOH Screenings 1961 [facility]-DTaP,Tdap,and Td Vaccines (1 - Tdap) 1962 [facility]-Zoster Vaccines (1 of 2) 1993 [facility]-RSV Vaccine: 60+ Years or (1 - 1-dose 75+ series) 2018 [facility]-Pneumococcal Vaccine: 50+ Years (2 of 2 - PCV) 09/01/2020 09/01/2019 [id number] Vaccine (3 - season) 2024 09/24/2020, 08/28/2020 [facility]-Influenza Vaccine Completed 06/12/2024 , 07/15/2021, 04/24/2020, Additional history exists [facility]-Obesity Intervention Completed 025, 04/19/2024, 01/19/2024, Additional history exists HPV Vaccines Aged Out No longer eligi ble based on patient's age to complete this topic [facility]-HIB Vaccines Aged Out No longer e ligible based on patient's age to complete this topic [facility]-Hepatitis A Vaccines Aged Out No longer eligible based on patient's age to complete this topic [facility]-IPV Vaccines Aged Out No longer e ligible based on patient's age to complete this topic [facility]-Rotavirus Vaccines Aged Out No lo nger eligible based on patient's age to complete this topic Medical Devices Implanted Type Area Photographer Apprentice Lithographic Device Identifier Shelf Expiration Date Model / Serial / Lot Shell Modular Redapt 56mm - [id number] Implanted:Qty: 1 on 01/31/2023 by Flako Hawkins MD at [facility] Right: Hip [employer]-[id number] 06/07/2032 [id number] / / [id number] Chg Lnr 20 Deg 56 - [id number] Implanted:Qty: 1 on 01/31/2023 by Flako Hawkins MD at [facility] Right: Hip [employer]-[id number] 11/14/2032 [id number] / / [id number] Chg Screw Ref Spher Head 20mm - [id number] Implanted:Qty: 1 on 01/31/2023 by Flako Hawkins MD at [facility] Right: Hip [employer]-[id number] 07/15/2032 [id number] / / [id number] Chg Screw Ref Spher Head 40mm - [id number] Implanted:Qty: 1 on 01/31/2023 by Flako Hawkins MD at [facility] Right: Hip [employer]-[id number] 05/30/2032 [id number] / / [id number] Polarstem Cementless Tiha 7 - [id number] Implanted:Qty: 1 on 01/31/2023 by Flako Hawkins MD at [facility] Right: Hip [id number] 12/02/2028 [id number] / / [id number] Chg Head Oxin Mod Fem 40mm - [id number] Implanted:Qty: 1 on 01/31/2023 by Flako Hawkins MD at [facility] Right: Hip [employer]-[id number] 10/15/2032 [id number] / / [id number] Chg Sleeve Tit Mod Neck +0 - [id number] Implanted:Qty: 1 on 01/31/2023 by Flako Hawkins MD at [facility] Right: Hip [employer]-[id number] 07/27/2032 [id number] / / [id number] Procedures Procedure Name Priority Date/Time Associated Diagnosis Comments OCT, OPTIC NERVE - OU - BOTH EYES Routine 12/08/2024 9:36 PM EDT Primary open-angle glaucoma, left eye, 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 Image quality good OU. Nora Escalante MD OPHTH TOMOGRAPHY Final Resul t from Last 3 Months Insurance [facility] MEDICARE Advance Directives * Full Code (Latest Code Status on File) Date Activated Date Inactivated Comments 01/31/2023 8:26 AM 01/31/2023 5:53 PM Question Answer Comments Patient has decision-making capacity? Yes Care Teams Recreation Program Coordinator Relationship Specialty Start Date End Date Sunny Bolanos MD [address] [place] [address] [place] [address] PCP - General 11/12/21
--- OUTSIDE RECORDS SUMMARY | 2024-12-28 10:05 | XMS_ITS | Data Portability ---
Author Organization [facility] - [facility] ADMIN Address [address] [place] [id number] Care Team Providers Care Pharmacy Customer Care Specialist Name Role Phone SP BOLANOS Primary Care Provider [phone] Assessment No assessment recorded. Plan of Treatment Reminders Order Date Submit Date Provider Last Modified By Organization Details Last Modified Time Details Appointments 3 MONTH FU 2024 08:15A Dea Bolanos MD Not available Not available Not available FOLLOW UP 2024 10:15A Dea Ruelas MD Not available Not available Not available Medicare Annual Wellness 30min 2024 09:30A Dea Bolanos MD Not available Not available Not available Lab HbA1c (hemoglob in A1c), blood 2024 025 [email or web address] [facility] [place], [address], [place], [address], 10/25/2024 09:37:16 Referral None recorded. Procedures None recorded. Surgeries None recorded. Imaging XR, hip, unilatera l, 2 or 3 view 2024 025 [id number] In-House Imaging - [facility], [address], [place], [address], 11/13/2024 07:52:40 XR, hip, unilatera l 2024 025 [email or web address] [facility] (Centralized Scheduling), [address], [place], [address], 11/26/2024 13:56:45 electroca rdiogram [address] - [place], [address], [place], [address], 11/12/2024 11:50:56 holter monitor [address] (Centralized Scheduling), [address] [facility], [place], [address], 12/11/2024 09:56:47 US, duplex, venous, lower extremity [address] (Centralized Scheduling), [address] [facility], [place], [address], 08/17/2024 10:09:21 Medication Orders ketoconaz ole 2 % topical cream 2024 025 [facility], [address] [place], [address], 11/12/2024 12:45:34 furosemid e 20 mg tablet 2024 025 [facility], [address] [place], [address], 10/25/2024 09:38:03 omeprazol e 40 mg capsule,d elayed release 2024 025 [facility], [address] [place], [address], 10/25/2024 09:38:01 furosemid e 20 mg tablet [address] [facility], [address] [place], [address], 09/26/2024 10:31:38 Patient TargetsNo targets recorded. Patient InstructionsNo instructions recorded. Reason for Referral None Reported. Results Created Date Observation Date Name Description Value Unit Range Abnormal Flag Note LastModifiedBy Organization Detail LastModifiedTime 10/26/19 25 10/25/2024 HbA1c (hemo globi n A1c), blood HbA1c 6.5 Not Available [facility] [place] [address], [place], [address], 10/25/2024 09:27:05 08/09/19 25 08/09/2024 venou s duple x US lwr ext bilat [facility] [address] [place] [address] Phone: Fax: Name: NEYMAR NAVARRO Exam Date: 025 : 1944 Age 79 years Gender : M Access ion: [id number] Physic melany: Sp Elder ty: [facility] Facili ty HSV: Outpat ient Exam: VENOUS DUPLEX US LWR EXT BILAT Duplex ultras ound bilate ral lower extrem ity Evalua tion perfor med from the groin to the proxim al calf bilate ral. Right lower extrem ity: Normal compre ssion and augmen tation throug hout. Blood flow demons trated . No intral uminal fillin g defect or deep venous thromb osis. Left lower extrem ity: Intral uminal fillin g defect and lack of compre ssion of the distal superf icial femora l vein, poplit eal vein and perone al veins. Compre ssion and augmen tation and flow within the common femora l vein proxim al superf icial vein and mid superf icial femora l vein. IMPRES YENI: Deep venous thromb osis within distal left superf icial femora l vein, poplit eal vein and perone al veins. No eviden ce for deep venous thromb osis right lower extrem ity. Findin called to garland ochoa physic melany's office . Electr onical ly signed by:Evgeny sanchez MD07/25 10:57 AM EST RP Workst ation: [id number] Dictat ed By: Kavin John Transc ribed By: Transc ribed On: 025 10:28 AM Electr onical ly signed by: Kavin John 025 Thank you for referr jimena FUNEZ Dea LISAELISHA to [facility] Hospit [facility]. Legall y authen ticate d by EMIGDIO Flaherty 08-09 10:28: 18 CC'ed Logic: Orderi ng Provid er: ABRIL SNOWDEN CC Provid er: ABRIL SNOWDEN Attend ing Provid er: ABRIL SNOWDEN Referr ing Provid er: ABRIL SNOWDEN Admitt ing Provid er: ABRIL SNOWDEN [email or web address] [facility] [address] [facility], [place], [address], 08/09/2024 12:14:59 11/13/19 25 11/13/2024 elect rocar diogr am No observ ation record ed. [facility] [place], [place], [address], 11/13/2024 15:49:09 11/13/19 25 11/12/2024 elect rocar diogr am No observ ation record ed. [email or web address] Not Available 11/12 13:10:59 11/13/19 25 11/12/2024 XR, hip, unila teral , 2 or 3 view No observ ation record ed. [facility]-House Imaging - [facility] [address], [place], [address], 11/13/2024 15:43:52 11/30/19 25 11/29/2024 bisi maynard x US lwr lt ext [facility] [address] [place] [address] Phone: Fax: Name: NEYMAR NAVARRO Exam Date: 11/30/19 25 : 1944 Age 79 years Gender : M Access ion: [id number] Physic melany: JORDAN RUELAS Facili ty: [facility] Facili ty HSV: Outpat ient Exam: VENOUS DUPLEX US LWR LT EXT Duplex ultras ound deep venous system left lower extrem ity. HISTOR Y: Left leg pain. Histor y of deep venous thromb osis left lower extrem ity. FINDIN GS: Evalua tion perfor med from groin to calf. Normal compre ssion throug hout. Color flow throug hout. Normal augmen tation poplit eal vein and common femora l vein. No defini te eviden ce for intral uminal fillin g defect or deep venous thromb osis. IMPRES YENI: No eviden ce for deep venous thromb osis left lower extrem ity. Electr onical ly signed by: Kavin sanchez MD 2024 02:34 PM EDT RP Workst ation: [id number] Dictat ed By: Kavin John Transc ribed By: Transc ribed On: 11/30/19 10:22 AM Electr onical ly signed by: Kavin John 11/30/19 Thank you for referr NEYMAR Putnam to [facility] al. Legall y authen ticate d by EMIGDIO Flaherty 11-29 10:22: 00 CC'ed Logic: Orderi ng Provid er: JESSENIA DYER Attend ing Provid er: JESSENIA DYER Admitt ing Provid er: JESSENIA [address]man[address] [place] [address] - Physical Therapy [address] [facility], [place], [address], 11/30/2024 14:56:32 12/11/19 25 12/05/2024 HOLTER MONITO NEYMAR MORENO [facility] 4 2 DATE OF SERVIC E: 2024 PROVID ER: Rashid Hernandez MD, [facility] DATE OF STUDY: 2024 to 2024. INDICA TION: Syncop e. REQUES MARITA BY: Sp RODRIGUES GS: Underl nataliia rhythm was sinus. Heart rate rangin g from 34 to 160 beats per minute . Averag e heart rate of 71 beats per minute . 135 suprav entric ular ectopi c beats were noted. This includ ed 114 PACs, 9 couple ts, 1 triple t. 50 PVCs were noted. 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 The patien t had a single trigge red event, which corres ponded to sinus rhythm at a rate of 83 beats per minute with no associ ated arrhyt hmia. FINAL IMPRES YENI: Underl nataliia rhythm was sinus. Premat ure atrial contra ctions and premat ure ventri cular contra ctions as descri bed above with no arrhyt hmias. Longes t pause was 2.6 second s associ ated with type 1 Wencke bach block. DICTAT ED BY: Rashid Hernandez MD, FACC JT/MOD L DD: 2024 17:17: 05 DT: 2024 17:59: 17 [id number] Electr onical ly Signed By: DAMIEN Correa 12-10 08:42: 19 CC'ed Logic: Orderi ng Provid er: DAMIEN CROUCH [email or web address] [facility] [address] , [place], [address], 12/11/2024 16:16:55 Result Notes None recorded. Procedures Surgical History Date Name Laterality Status Provider Name and Address Organization Details Recorded Time 03/28/20 24 Venipuncture completed Julita Owen PA-C [address], [place], [address], [facility] - [place] [facility] [place] 03/15/2024 12:34:55 02/15/20 24 Venipuncture completed Ann Flaherty [facility] [place] [facility] [place] 02/15/2024 13:40:07 02/01/20 23 repair of hip completed Steff Avalos CT - [facility] - [place] & [place] 03/12/2024 10:23:01 09/20/19 23 Joint Replacement completed Steff Rothamer [place] - [facility] - [place] [facility] [place] 04/20/2024 09:24:51 01/29/20 21 Hernia Repair completed Steff Rothamer [place] [facility] [place] [facility] [place] 05/20/2023 07:50:46 10/14/19 18 Hip Surgery completed Steff Rothamer [place] [facility] [place] [facility] [place] 03/12/2024 10:24:59 02/23/20 17 procedure on neck completed Steff Rothamer [place] [facility] [place] [facility] [place] 05/20/2023 07:50:07 Knee Surgery completed Steff Rothamer [place] [facility] - [place] [facility] [place] 05/20/2023 07:48:48 Eye Surgery completed Steff Rothamer [place] [facility] [place] [facility] [place] 05/20/2023 07:49:07 Colonoscopy completed Steff Rothamer [place] [facility] [place] [facility] [place] 05/20/2023 07:49:20 Cataract Surgery completed Steff Rothamer [place] [facility] - [place] [facility] [place] 05/20/2023 07:50:32 Imaging Results None recorded. Procedure Notes None recorded. Medical Equipment None Reported. Allergies Allergen ID Allergen Name Allergen Category Reaction Reaction Severity Criticality Documentation Date Start Date Code Code System Note Provider Name and Address Organization Details Recorded Time 679133 brinzolam markus medicatio n other Not available low 03/12/2024 81264 1 RxNorm passe d out Steff Rothamer null, [place] - [facility] & [place] 4 10:20:55 321718 lubiprost one medicatio n dizziness Not available high 03/12/2024 74606 3 RxNorm Steff Rothamer null, [place] - [facility] - [place] & [place] 4 10:21:07 [id number] timolol medicatio n other Not available low 03/12/2024 29251 RxNorm pass ed out from [facility] CHRISTINA, not Timol ol alone Steff Rothamer null, [place] - [facility] - [place] & [place] 4 10:21:34 Medications Name Sig Start Date Stop Date Status Note LastModified by Organization Details LastModified Time latanoprost 0.005 % eye drops 10/25 completed Not Available Not Available Not Available prednisone 10 mg tablet Take 1 tablet every day by oral route for 30 days. 04/19 completed Not Available Not Available Not Available triamcinolo ne acetonide 0.5 % topical cream APPLY TOPICALLY TO THE AFFECTED AREA TWICE DAILY FOR 10 DAYS 09/30 completed Not Available Not Available Not Available benzonatate 200 mg capsule 09/26 completed Not Available Not Available Not Available prednisone 20 mg tablet 09/30 completed Not Available Not Available Not Available prednisone 5 mg tablet Take 1 tablet every day by oral route for 14 days. 06/12 completed Not Available Not Available Not Available omeprazole 40 mg capsule,del ayed release Take 1 capsule every day by oral route. 2024 active Not Available Not Available Not Avai lable tramadol 50 mg tablet 12/04 completed Not Available Not Available Not Available cefadroxil 500 mg capsule 04/25 completed Not Available Not Available Not Available meloxicam 7.5 mg tablet 12/21 completed Not Available Not Available Not Available Mobic 15 mg tablet Take 1 tablet every day by oral route. 2023 active Not Available Not Available Not Avai lable oxycodone-a cetaminophe n 5 mg-325 mg tablet 11/23 completed Not Available Not Available Not Available famotidine 20 mg tablet Take 1 tablet twice a day by oral route. 10/25 completed Not Available Not Available Not Available cephalexin 500 mg capsule 11/23 completed Not Available Not Available Not Available chlorpromaz ine 25 mg tablet Take 1 tablet 3 times a day by oral route as needed for 7 days. 12/21 completed Not Available Not Available Not Available lisinopril 10 mg tablet TAKE ONE TABLET BY MOUTH ONE TIME DAILY 03/28 completed Not Available Not Available Not Available triamterene 37.5 mg-hydrochl orothiazide 25 mg tablet Take 1 tablet every day by oral route. 04/19 completed Not Available Not Available Not Available omeprazole 20 mg capsule,del ayed release TAKE 1 TABLET BY MOUTH ONCE DAILY 09/15 completed Not Available Not Available Not Available montelukast 10 mg tablet Take 1 tablet every day by oral route for 90 days. 09/26 completed Not Available Not Available Not Available furosemide 20 mg tablet TAKE 1 TABLET BY MOUTH EVERY DAY 2024 active Not Available Not Available Not Avai lable gabapentin 100 mg capsule 12/04 completed Not Available Not Available Not Available metoprolol succinate ER 25 mg tablet,exte nded release 24 hr Take 1 tablet every day by oral route. 2024 active Not Available Not Available Not Avai lable levofloxaci n 750 mg tablet Take 1 tablet every day by oral route for 7 days. 12/04 completed Not Available Not Available Not Available albuterol sulfate HFA 90 mcg/actuati on aerosol inhaler Inhale 2 puffs 3 times a day by inhalatio n route. 09/26 completed Not Available Not Available Not Available timolol maleate 0.5 % eye drops active Not Available Not Available Not Available ketoconazol e 2 % topical cream APPLY TO THE AFFECTED AREA(S) BY TOPICAL ROUTE ONCE DAILY 2024 active Not Available Not Available Not Avai lable ondansetron 4 mg disintegrat ing tablet 02/14 completed Not Available Not Available Not Available fluticasone propionate 50 mcg/actuati on nasal spray,suspe nsion SHAKE LIQUID AND USE 1 SPRAY IN EACH NOSTRIL EVERY DAY 05/23 completed Not Available Not Available Not Available oxycodone 5 mg tablet 11/23 completed Not Available Not Available Not Available hydroxyzine pamoate 25 mg capsule TAKE 1 CAPSULE BY MOUTH THREE TIMES DAILY FOR 7 DAYS 09/30 completed Not Available Not Available Not Available timolol maleate (PF) 0.5 % eye drops in a dropperette active Not Available Not Available Not Available Prilosec OTC 20 mg tablet,clayton yed release Take 1 tablet every day by oral route. 09/15 completed Not Available Not Available Not Available Bromelain active Not Available Not Kelly ilable Not Available Xarelto 10 mg tablet Take 1 tablet every day by oral route for 30 days. 06/12 completed Not Available Not Available Not Available Xarelto 15 mg tablet Take 1 tablet twice a day by oral route for 30 days. 09/26 completed Not Available Not Available Not Available Xarelto 20 mg tablet TAKE ONE TABLET BY MOUTH ONE TIME DAILY 2024 active Not Available Not Available Not Avai lable lactobacill .acidophilu s (bulk) 05/23 completed Not Available Not Available Not Available potassium chloride ER 20 mEq tablet,exte nded release Take 1 tablet every day by oral route for 30 days. 2024 active Not Available Not Available Not Avai lable baclofen 5 mg tablet TAKE 1 TABLET BY MOUTH 3 TIMES DAILY NEEDED 09/30 completed Not Available Not Available Not Available Trelegy Ellipta 200 mcg-62.5 mcg-25 mcg powder for inhalation Inhale 1 puff every day by inhalatio n route for 30 days. 03/08 completed Not Available Not Available Not Available latanoprost (PF) 0.005 % eye drops in a dropperette active Not Available Not Available Not Available Breyna 160 mcg-4.5 mcg/actuati on HFA aerosol inhaler INHALE 2 PUFFS BY MOUTH TWICE DAILY 09/26 completed Not Available Not Available Not Available Vitals Date Recorded Body height Body mass index (BMI) Body weight Body temperature Oxygen saturation Oxygen saturation in Arterial blood by Pulse oximetry Heart rate Systolic blood pressure Diastolic blood pressure Provider Name and Address Organization Details Last Updated DateTime 5 175.26 cm 33.2 kg/m2 319776. 28 g 97.3 [degF] 92 % 92 % 72 /min 118 mm[Hg] 84 mm[Hg] Roxy Miramontes [place] - [facility] & [place] 5 09:14:15 Date Recorded Body height Body mass index (BMI) Body weight Body temperature Oxygen saturation Oxygen saturation in Arterial blood by Pulse oximetry Heart rate Systolic blood pressure Diastolic blood pressure Provider Name and Address Organization Details Last Updated DateTime 5 175.26 cm 32.5 kg/m2 99242.6 8 g 97.8 [degF] 98 % 98 % 59 /min 131 mm[Hg] 71 mm[Hg] Daksha Delroy [place] - [facility] & [place] 5 10:33:30 Date Recorded Body height Body mass index (BMI) Body weight Body temperature Oxygen saturation Oxygen saturation in Arterial blood by Pulse oximetry Heart rate Systolic blood pressure Diastolic blood pressure Provider Name and Address Organization Details Last Updated DateTime 5 175.26 cm 32.5 kg/m2 75740.3 2 g 98 [degF] 93 % 93 % 92 /min 124 mm[Hg] 90 mm[Hg] Roxy Miramontes [facility] & [place] 5 09:13:01 Date Recorded Body height Body mass index (BMI) Body weight Body temperature Oxygen saturation Oxygen saturation in Arterial blood by Pulse oximetry Heart rate Systolic blood pressure Diastolic blood pressure Provider Name and Address Organization Details Last Updated DateTime 5 175.26 cm 32.6 kg/m2 287947. 91 g 98.4 [degF] 94 % 94 % 70 /min 120 mm[Hg] 88 mm[Hg] Roxy Miramontes [facility] & [place] 5 11:20:30 Social History Question Answer Notes LastModified by Organizat ion Details LastModified Time Tobacco Smoking Status Never Smoker Roxy Miramontes [facility] & [place] 09/30/2022 16:37:36 Do You Have An Advance Directive? Yes [email or web address] Information not available 12/21/2022 Are You Blind Or Do You Have Difficulty Seeing? No [email or web address] Information not available 12/21/2022 Is Blood Transfusion Acceptable In An Emergency? No Information not available 04/20/2024 What Is Your Level Of Caffeine Consumption? Occasional [email or web address] Information not available 12/21/2023 Are You Deaf Or Do You Have Serious Difficulty Hearing? No [email or web address] Information not available 03/28/2024 What Type Of Diet Are You Following? REGULAR [email or web address] Information not available 03/28/2024 How Many Days Of Moderate To Strenuous Exercise, Like A Brisk Walk, Did You Do In The Last 7 Days? 6 [email or web address] Information not available 09/27/2024 Have There Been Any Changes To Your Family Or Social Situation? No [email or web address] Information no t available 03/28/2024 In General, Would You Say Your Health Is Fair [email or web address] Information not available 09/27/2024 How Would You Describe The Condition Of Your Mouth And Teeth including False Teeth Or Dentures? Good Information not available 04/20/2024 In The Past 7 Days, How Many Servings Of Fruits And Vegetables Did You Typically Eat Each Day? (1 Serving = 1 Cup Of Fresh Vegetables, 1 2 Cup Of Cooked Vegetables, Or 1 Medium Piece Of Fruit. 1 Cup = Size Of A Baseball.) 3-4 Servings Per Day Information not available 04/20/2024 In The Past 7 Days, How Many Servings Of High Fiber Or Whole Grain Foods Did You Typically Eat Each Day? (1 Serving = 1 Slice Of 100% Whole Wheat Bread, 1 Cup Of Whole-grain Or High-fiber Vufxg-wh-zbf Cereal, 1 2 Cup Of Cooked Cereal Such As Oatmeal, Or 1 2 Cup Of Cooked Brown Rice Or Whole Wheat Pasta.) 1-2 Servings Per Day Information not available 04/20/2024 In The Past 7 Days, How Many Servings Of Fried Or High-fat Foods Did You Typically Eat Each Day? (Examples Include Fried Chicken, Fried Fish, Cooley, Turkish [place], Potato Chips, Convent Chips, Doughnuts, Creamy Salad Dressings, And Foods Made With Whole Milk, Cream, Cheese, Or Mayonnaise.) 0 Servings Per Day Information not available 04/20/2024 In The Past 7 Days, How Many Sugar-sweetened (not Diet) Beverages Did You Typically Consume Each Day 0 Drinks Per Day Information not available 04/20/2024 Each Night, How Many Hours Of Sleep Do You Usually Get? 7-8 Hours Information not available 03/28/2024 Do You Snore Or Has Anyone Told You That You Snore? Yes [email or web address] Information not available 03/28/2024 In The Past 7 Days, How Often Have You [place] Sleepy During The Daytime? Always Information not available 04/20/2024 Do You Have Chronic Pain? No [email or web address] Information not available 03/28/2024 In The Past 7 Days, How Would You Rate Your Pain? Mild Pain(1-3) [email or web address] Information not available 03/28/2024 Are You In A Pain Management Program? No [email or web address] Information not available 03/28/2024 Do You Take Opioids For Your Pain? No [email or web address] Information not available 03/28/2024 How Often Is Stress A Problem For You In Handling Such Things As: Your Health, Your Finances, Your Family And Social Relationships, Your Work? Never Or Rarely [email or web address] Information not available 03/28/2024 How Often Do You Get The Social And Emotional Support You Need: Usually Information no t available 04/20/2024 In The Past 7 Days, Did You Need Help From Others To Take Care Of Things Such As Laundry And Housekeep- Ing, Banking, Shopping, Using The Telephone, Food Preparation, Transportation, Or Taking Your Own Medications? No [email or web address] Information not available 03/28/2024 Do You Live Alone? No [email or web address] Information not available 03/28/2024 Does Your Home Have Any Fall Risks (un-level Floors, Unfastened Rugs, Poor Lighting, Etc)? No [email or web address] Information not available 03/28/2024 Do You Feel Safe At Home? Yes [email or web address] Information not available 03/28/2024 Do You Have A Medical Power Of Landscape Horticulture Instructor? Yes Information not available 04/20/2024 What Was The Date Of Your Most Recent Tobacco Screening? 04/24/2024 Information not available 2024 How Many Children Do You Have? 2 [email or web address] Information not available 09/27/2024 What Is Your Relationship Status? [email or web address] Information not available 03/28/2024 Do You Use Your Seat Belt Or Car Seat Routinely? Yes [email or web address] Information not available 03/28/2024 Are You Sexually Active? No Information not available 04/20/2024 Do You Have Smoke And Carbon Monoxide Detectors In Your Home? Yes [email or web address] Information not available 03/28/2024 Are You Passively Exposed To Smoke? No [email or web address] Information no t available 12/21/2022 Has Tobacco Cessation Counseling Been Provided? No [email or web address] Information not available 12/21/2023 Do You Have Difficulty Walking Or Climbing Stairs? No Information not available 04/20/2024 Sex: Unknown Functional Status Question Answer Note LastModified by Organizat ion Details LastModified Time Do you use any illicit or recreational drugs? No [email or web address] Information not available 12/21/2022 Do you or have you ever used any other forms of tobacco or nicotine? No [email or web address] Information not available 12/21/2023 What is your level of alcohol consumption? None Information not available 04/20/2024 Do you or have you ever used smokeless tobacco? Never used smokeless tobacco [email or web address] Information not available 12/21/2022 Do you have transportation difficulties? No [email or web address] Information not available 03/28/2024 Are you able to walk? YESWOREST [email or web address] Information not available 03/28/2024 Do you have difficulty doing errands alone? Yes cant drive at night [email or web address] Information not available 03/28/2024 Are you able to care for yourself? Yes Information n ot available 03/28/2024 Do you have difficulty dressing or bathing? No [email or web address] Information not available 03/28/2024 What is your exercise level? Moderate [email or web address] Information not available 09/27/2024 Mental Status Question Answer Note LastModified by Organizat ion Details LastModified Time Do you feel stressed (tense, restless, nervous, or anxious, or unable to sleep at night)? [id number] Information not available 12/21/2022 Do you have difficulty concentrating, remembering or making decisions? No [email or web address] Information no t available 03/28/2024 Family History Relationship Description Onset Age of this Age Resolved Age Notes LastModified by Organization Details LastModified Time Father Heart disease pt. added direct ly (09/28) [email or web address]_[email or web address] Not available 09/27/2023 14:04:27 Father Myocardial infarction CHART_MERGE Not available 11/2023 14:04:27 Mother Kidney disease pt. added direct ly (09/28) CHART_MERGE Not available 09/27/2023 14:04:27 Mother Heart disease CAD CHART_MERGE Not available 11/2023 14:04:27 Son Heart disease [email or web address] Not available 2023 10:22:31 Medical History Condition Response Muscle, Joint, or Bone Problems Y Gout Y Other Y Vision or Eye Problems Y Arthritis Y Back Problems Y Depression Y COPD Y Clotting Disorder Y Difficulty Swallowing Y High Cholesterol N Anesthesia Complications Y Pulmonary Embolism Y Headaches Y Hypertension N Immunizations Vaccine Type Date Status Note Provider Nam e and Address Organization Details Recorded Time Influenza, split virus, quadrivalent, preservative 8 completed Steff Roth[place] null, [place] [facility] [place] [facility] [place] 05/20/2023 07:44:01 Influenza, adjuvanted, quadrivalent, PF 1 completed Steff [place], [place] [facility] [place] 05/20/2023 07:44:01 COVID-19, mRNA, LNP-S, PF, 100 mcg/0.5mL dose or 50 mcg/0.25mL dose 1 completed Steff Roth[place], [place] [facility] [place] 05/20/2023 07:44:01 COVID-19, mRNA, LNP-S, PF, 100 mcg/0.5mL dose or 50 mcg/0.25mL dose 1 completed Steff Roth[place] null, [place] [facility] [place] 05/20/2023 07:44:01 pneumococcal polysaccharide PPV23 0 completed Steff [place], [place] [facility] [place] 05/20/2023 07:44:01 Influenza, high-dose, trivalent, PF 0 completed Steff Roth[place], [place] [facility] [place] 05/20/2023 07:44:01 TST-PPD intradermal 4 completed Roxy Miramontes null, [place] [facility] [place] 09/20/2023 10:17:13 Influenza, adjuvanted, trivalent, PF 4 completed Sp Bolanos MD [address] , [place], [address], [place] [facility] [place] 06/12/2024 12:19:27 Past Encounters Encounter ID Performer Location Encounter Start Date Encounter Closed Date Diagnosis/Indication Diagnosis SNOMED-CT Code Diagnosis ICD10 Code Diagnosis Note [id number] Sp Bolanos MD [facility] [address] [place] [address] 09/30/2022 16:32:37 09/30/2022 16:50:27 Chronic hiccup 295719512 R06.6 Short trial of Thorazine p.r.n. for his hiccups. [id number] Sp Bolanos MD [address] [place] [address] 12/21/2022 15:55:27 12/21/2022 16:35:23 Dysfunction of eustachian tube 46007673 H69.92 Epidermal nevus 96905813 7 D23.9 [id number] Sp Bolanos MD [address] [place] [address] 04/25/2023 13:11:31 04/25/2023 14:10:00 Chest pain 07795687 R07.9 to er for eval [id number] Sp Bolanos MD [address] [place] [address] 05/23/2023 10:52:06 05/23/2023 11:38:25 Actinic keratosis 112699289 L57.0 Gastroesop hageal reflux disease without esophagitis 824896951 K21.9 [id number] Sp Bolanos MD [address] [place] [address] 09/15/2023 11:11:25 09/15/2023 11:37:49 Chronic cough 63194426 R05.3 Coronary arteriosclerosis 54541152 I25.10 Continue close follow-up with Cardiology . Glaucoma 48941682 H40.9 One of the drops he is on does have chronic cough as a side effect but the patient reports his symptoms started long for this medication was prescribed and he has not had any worsening of his symptoms since starting. [id number] Nader Do M.D [facility] [address] [place] [address] 11/24/2023 14:25:46 11/24/2023 15:46:13 Dyspnea 033070864 R06.00 Cough variant asthma 409 162445 J45.198 [id number] Sp Bolanos MD [facility] [address] [place] [address] 12/05/2023 10:41:01 12/05/2023 11:13:37 Deep venous thrombosis of lower extremity 043449825 I82.409 Pain of le ft lower leg 4773303161 97512 M79.473 [id number] Sp Bolanos MD [facility] [address] [place] [address] 12/26/2023 08:59:20 12/26/2023 09:25:41 History of deep vein thrombosis 249116252 Z86.718 left lower leg continues Xarelto. Keep close follow-up with Hematology Pulmonary embolism 05134 003 I26.99 As above Cough 81851263 R05.9 [id number] Jordan Ruelas MD [facility] [address] [facility] [place] [address] 12/21/2023 14:56:14 12/21/2023 15:55:54 Deep venous thrombosis 534223255 I82.409 venous duplex of the left lower extremity performed on December 05, 2023. Findings of extensive deep venous thrombosis of the left lower extremity with DVT in the popliteal vein as well as the superficia l femoral vein. Pulmonary embolism 80023 003 I26.99 Initially presented to the emergency room on December 15, 2023 with shortness of breath. Patient recently seen and had venous duplex of the left lower extremity performed on December 05, 2023. Findings of extensive deep venous thrombosis of the left lower extremity with DVT in the popliteal vein as well as the superficia l femoral vein. Patient was started on anticoagul ation with Xarelto at 20 mg p.o. daily. Patient was not started on starter pack dosing for acute venous thromboemb olism. Dosing would be been 15 mg p.o. b.i.d.. Patient's renal function with creatinine clearance of 58. Serum creatinine 1.0. CT scan of the chest December 15, 2023 with findings bilateral left and right pulmonary artery filling defects extending to the lobar pulmonary arteries consistent with acute pulmonary embolism. Findings of small pulmonary nodules less than 5 mm Patient reports positive family history of blood clots as his mother's had prior venous thromboemb olism. Patient treated with Lovenox while in the hospital. Discussed upon discharge resuming Xarelto 15 mg p.o. b.i.d. starter pack dosing for 21 days and then proceeding with 20 mg p.o. daily. Discussed taking medication with food to ensure absorption . CT scan of the abdomen pelvis performed on December 16, 2023 with no evidence mass or adenopathy . No area malignancy noted. Patient returns on December 21, 2023. Discussed additional lab testing due to family history of DVT. Will follow-up labs make further recommenda tions. Plan would be to continue Xarelto therapy. Will plan to repeat venous duplex and likely CT scan in 3 months. Will assess if any abnormalit ies that would require further anticoagul ation. History of deep vein thrombosis 763330272 Z86.718 Patient's mother had history of clotting episodes. Will follow up additional labs. Hoarse 23360448 R49.0 Patient with cough and mild change with voice and hoarseness . Patient being evaluated for possible COPD versus asthma by pulmonary Medicine. Denies any acid reflux. Denies postnasal drip. If continued would consider evaluation by ENT for direct laryngosco py. [id number] Nader Do M.D [facility] [address] [place] [address] [address] [place] [address] 01/25/2024 13:06:12 01/25/2024 13:53:07 Cough variant asthma 627545135 J45.991 Dyspnea 928765381 R06.00 Pulmonary embolism 63904 003 I26.99 [id number] Julita Owen PA-C [facility] [address] [place] [address] 02/15/2024 13:20:29 02/15/2024 13:49:31 Pulmonary embolism 85907559 I26.99 Initially presented to the emergency room on December 15, 2023 with shortness of breath. Patient recently seen and had venous duplex of the left lower extremity performed on December 05, 2023. Findings of extensive deep venous thrombosis of the left lower extremity with DVT in the popliteal vein as well as the superficia l femoral vein. Patient was started on anticoagul ation with Xarelto at 20 mg p.o. daily. Patient was not started on starter pack dosing for acute venous thromboemb olism. Dosing would be been 15 mg p.o. b.i.d.. Patient's renal function with creatinine clearance of 58. Serum creatinine 1.0. CT scan of the chest December 15, 2023 with findings bilateral left and right pulmonary artery filling defects extending to the lobar pulmonary arteries consistent with acute pulmonary embolism. Findings of small pulmonary nodules less than 5 mm Patient reports positive family history of blood clots as his mother's had prior venous thromboemb olism. Patient treated with Lovenox while in the hospital. Discussed upon discharge resuming Xarelto 15 mg p.o. b.i.d. starter pack dosing for 21 days and then proceeding with 20 mg p.o. daily. Discussed taking medication with food to ensure absorption . CT scan of the abdomen pelvis performed on December 16, 2023 with no evidence mass or adenopathy . No area malignancy noted. Discussed additional lab testing due to family history of DVT. Will follow-up labs make further recommenda tions. Plan would be to continue Xarelto therapy. Will plan to repeat venous duplex and likely CT scan in 3 months. Will assess if any abnormalit ies that would require further anticoagul ation. Patient returns on February 15, 2024. Hypercoagu lable evaluation performed on December 21, 2023 with no evidence of protein C or S deficiency . No evidence of factor 5 mutation. Negative factor 2 mutation. Factor 8 activity slightly elevated at 146%. Will schedule follow-up chest CT and venous duplex. If no evidence of clot will discuss discontinu ing Xarelto. Will follow-up Deep venou s thrombosis 919242064 I82.409 venous duplex of the left lower extremity performed on December 05, 2023. Findings of extensive deep venous thrombosis of the left lower extremity with DVT in the popliteal vein as well as the superficia l femoral vein. History of deep vein thrombosis 675074570 Z86.718 Patient's mother had history of clotting episodes. Will follow up additional labs. Hoarse 51087846 R49.0 Patient with cough and mild change with voice and hoarseness . Patient being evaluated for possible COPD versus asthma by pulmonary Medicine. Denies any acid reflux. Denies postnasal drip. If continued would consider evaluation by ENT for direct laryngosco py. [id number] Sp Bolanos MD [facility] [address] [place] [address] 03/08/2024 11:20:31 03/08/2024 11:40:45 History of deep vein thrombosis 520968524 Z86.718 Chronic ob structive pulmonary disease 87475379 J44.9 Cough 19018603 R05.9 hold lisinopril again to see if this is an AIDA induced cough. Edema 013727932 R60.9 [id number] Sp Bolanos MD [facility] [address] [place] [address] 03/28/2024 08:35:14 03/28/2024 10:02:14 Adult health examination 078515399 Z00.00 Patient has a living will.No evidence of cognitive decline, depression , fall risk based on verbal interactio ns physical exam patient.Me dications reviewed and reconciled . He has not on any scheduled medication s.Preventi ve maintenanc e strategies discussed with the patient and copy in chart. He is up-to-date on vaccines except for seasonal flu shot which he will get later this month. Essential hypertension 71315300 I10 Pulmonary embolism 85258 003 I26.99 Cough 21271771 R05.9 I have advised him to reach out to his pulmonolog ist to see if the three-anthony h prednisone dosing is still the recommende d course of treatment. [id number] Julita Owen PA-C [facility] [address] [facility] [address] [place] [address] 03/28/2024 10:11:03 03/28/2024 11:20:38 Pulmonary embolism 68852292 I26.99 Initially presented to the emergency room on December 15, 2023 with shortness of breath. Patient recently seen and had venous duplex of the left lower extremity performed on December 05, 2023. Findings of extensive deep venous thrombosis of the left lower extremity with DVT in the popliteal vein as well as the superficia l femoral vein. Patient was started on anticoagul ation with Xarelto at 20 mg p.o. daily. Patient was not started on starter pack dosing for acute venous thromboemb olism. Dosing would be been 15 mg p.o. b.i.d.. Patient's renal function with creatinine clearance of 58. Serum creatinine 1.0. CT scan of the chest December 15, 2023 with findings bilateral left and right pulmonary artery filling defects extending to the lobar pulmonary arteries consistent with acute pulmonary embolism. Findings of small pulmonary nodules less than 5 mm Patient reports positive family history of blood clots as his mother's had prior venous thromboemb olism. Patient treated with Lovenox while in the hospital. Discussed upon discharge resuming Xarelto 15 mg p.o. b.i.d. starter pack dosing for 21 days and then proceeding with 20 mg p.o. daily. Discussed taking medication with food to ensure absorption . CT scan of the abdomen pelvis performed on December 16, 2023 with no evidence mass or adenopathy . No area malignancy noted. Discussed additional lab testing due to family history of DVT. Will follow-up labs make further recommenda tions. Plan would be to continue Xarelto therapy. Will plan to repeat venous duplex and likely CT scan in 3 months. Will assess if any abnormalit ies that would require further anticoagul ation. Patient returns on February 15, 2024. Hypercoagu lable evaluation performed on December 21, 2023 with no evidence of protein C or S deficiency . No evidence of factor 5 mutation. Negative factor 2 mutation. Factor 8 activity slightly elevated at 146%. Venous duplex and chest CTA on February 29, 2024 with no evidence of blood clot. Patient returns on February 15, 2024. is doing well. He states he had labs per his primary care provider this morning. Discussed with patient discontinu ing Xarelto or continuing prophylact ic dose of 10 mg daily. Patient would like to proceed with prophylact ic dose of 10mg for six months and if he does well will discontinu e. Will follow up. Deep venou s thrombosis 693281207 I82.409 Venous duplex of the left lower extremity performed on December 05, 2023. Findings of extensive deep venous thrombosis of the left lower extremity with DVT in the popliteal vein as well as the superficia l femoral vein. Venous duplex on February 29, 2024 with no evidence of blood clot. History of deep vein thrombosis 328700901 Z86.718 Patient's mother had history of clotting episodes. Will follow up additional labs. Hoarse 14053726 R49.0 Patient with cough and mild change with voice and hoarseness . Patient being evaluated for possible COPD versus asthma by pulmonary Medicine. Denies any acid reflux. Denies postnasal drip. If continued would consider evaluation by ENT for direct laryngosco py. [id number] Sp Bolanos MD [address] [place] [address] 04/19/2024 15:57:52 04/19/2024 16:28:46 Edema 085978055 R60.9 Unfortunat helen his edema is most likely due to the trauma from his large DVT in he is always going to have to deal with a little bit. Try some diuretics for a couple of weeks. Check BUN creatinine at the end of that. Continued wear of compressio n stockings and elevate feet. Tremor 95441721 R25.1 Cough 36310280 R05.9 [id number] Sp Bolanos MD [address] [place] [address] 05/03/2024 09:28:15 05/03/2024 10:03:59 Edema 654226717 R60.9 . Continue Lasix potassium combinatio n for now. Cough 94002513 R05.9 We will try to transition to albuterol. If no improvemen t in his cough symptoms and go back to [address]. Repeat pulmonary evaluation based on how he is doing. [id number] Nader Do M.D [facility] Medicine [address] [place] [address] [facility] [address] [place] [address] 04/26/2024 13:06:18 04/26/2024 14:16:22 Cough variant asthma 921544439 J45.991 Pulmonary embolism 99614 003 I26.99 Dyspnea 691344913 R06.00 [id number] Sp Bolanos MD [address] [place] [address] 06/12/2024 08:31:30 06/12/2024 09:05:01 Adult health examination 733008975 Z00.00 Patient has a living will.No evidence of cognitive decline, depression , fall risk based on verbal interactio ns physical exam patient.Me dications reviewed and reconciled . He has not on any scheduled medication s.Preventi ve maintenanc e strategies discussed with the patient and copy in chart. He is up-to-date on vaccines except for seasonal flu shot which he will get later this month. Nocturia 747336218 R35.1 History of deep vein thrombosis 570072992 Z86.718 Pain of to e of right foot 9973120966 57404 M79.674 Administra tion of influenza vaccine 87400288 Z23 Hyperglycemia 14206077 R 73.9 Hyperlipidemia 73600084 E78.5 Screening for malignant neoplasm of prostate 600097968 Z12.5 Osteoarthritis 743097930 M19.90 [id number] Sp Bolanos MD [facility] [address] [place] [address] 07/27/2024 09:01:45 07/27/2024 09:32:13 Edema 518365924 R60.9 . Continue Lasix potassium combinatio n for now. Pain in bi lateral legs 4764426767 4530290 M79.436 [id number] Jordan Ruelas MD [facility] [address] [place] [address] 09/26/2024 10:24:30 09/26/2024 10:59:23 Pulmonary embolism 67479083 I26.99 Initially presented to the emergency room on December 15, 2023 with shortness of breath. Patient recently seen and had venous duplex of the left lower extremity performed on December 05, 2023. Findings of extensive deep venous thrombosis of the left lower extremity with DVT in the popliteal vein as well as the superficia l femoral vein. Patient was started on anticoagul ation with Xarelto at 20 mg p.o. daily. Patient was not started on starter pack dosing for acute venous thromboemb olism. Dosing would be been 15 mg p.o. b.i.d.. Patient's renal function with creatinine clearance of 58. Serum creatinine 1.0. CT scan of the chest December 15, 2023 with findings bilateral left and right pulmonary artery filling defects extending to the lobar pulmonary arteries consistent with acute pulmonary embolism. Findings of small pulmonary nodules less than 5 mm Patient reports positive family history of blood clots as his mother's had prior venous thromboemb olism. Patient treated with Lovenox while in the hospital. Discussed upon discharge resuming Xarelto 15 mg p.o. b.i.d. starter pack dosing for 21 days and then proceeding with 20 mg p.o. daily. Discussed taking medication with food to ensure absorption . CT scan of the abdomen pelvis performed on December 16, 2023 with no evidence mass or adenopathy . No area malignancy noted. Discussed additional lab testing due to family history of DVT. Will follow-up labs make further recommenda tions. Plan would be to continue Xarelto therapy. Will plan to repeat venous duplex and likely CT scan in 3 months. Will assess if any abnormalit ies that would require further anticoagul ation. Patient returns on February 15, 2024. Hypercoagu lable evaluation performed on December 21, 2023 with no evidence of protein C or S deficiency . No evidence of factor 5 mutation. Negative factor 2 mutation. Factor 8 activity slightly elevated at 146%. Venous duplex and chest CTA on February 29, 2024 with no evidence of blood clot. Patient returns on February 15, 2024. is doing well. He states he had labs per his primary care provider this morning. Discussed with patient discontinu ing Xarelto or continuing prophylact ic dose of 10 mg daily. Patient would like to proceed with prophylact ic dose of 10mg for six months and if he does well will discontinu e. Will follow up. Deep venou s thrombosis 260754970 I82.409 Venous duplex of the left lower extremity performed on December 05, 2023. Findings of extensive deep venous thrombosis of the left lower extremity with DVT in the popliteal vein as well as the superficia l femoral vein. Venous duplex on February 29, 2024 with no evidence of blood clot. Recurrent deep vein thrombosis 158115919 I82.509 Venous duplex of the bilateral lower extremitie s on August 09, 2024 with findings of right lower extremity no evidence of DVT. Left lower extremity with intralumin al filling defect in lack of compressio n of the distal superficia l femoral vein popliteal vein and peroneal vein. Findings consistent with acute DVT. Patient started back on Xarelto at starter pack dosing. Patient returns on September 26, 2024. Discussed continuati on of Xarelto. Would plan to repeat venous duplex in October 2024. Given recurrent venous thromboemb olism would recommend indefinite anticoagul ation. Will plan to repeat venous duplex of the left lower extremity in OctoberNovember 2024 to assess for clot resolution however patient was taking prophylact ic dosing of Xarelto at time of venous thromboemb olism. Would continue moving forward with 20 mg p.o. daily Xarelto at standard dosing. Long-term current use of anticoagulant 367874492 Z79.01 Patient with recurrent venous thromboemb olism. Would recommend indefinite anticoagul ation. Currently on Xarelto 20 mg p.o. daily. Deep venou s thrombosis of lower extremity 686853271 I82.970 [id number] Sp Bolanos MD [facility] [address] [facility] [address] [place] [address] 10/25/2024 09:04:59 10/25/2024 09:39:27 History of deep vein thrombosis 933768565 Z86.718 Continue anticoagul ation. Almost likely be long-term. Gastroesop hageal reflux disease without esophagitis 166546732 K21.9 Type 2 evangelina betes mellitus 66271410 E11.9 diet controlled at the moment ... Edema of l ower extremity 990752557 R60.0 . Continue Lasix potassium combinatio n for now. [id number] Sp Bolanos MD [facility] [address] [facility] [address] [place] [address] 11/12/2024 11:10:40 11/12/2024 11:42:45 Gouty arthritis of left foot 9530314531 330960 M10.9 any use meloxicam on a rare p.r.n. basis for acute gouty pain. Dermatophytosis 80575694 B35.9 Pain of hip region 85542 002 M25.552 Syncope 821125049 R55 [id number] Marck Diaz MD [facility] [address] [facility] [address] [place] [address] 11/12/2024 11:47:51 11/12/2024 12:40:39 Pain of hip region 70685111 M25.552 Health Concerns Section Related Observation LastModified by Organization Detai ls LastModified Time None Recorded Concern Status LastModified by Organization Details LastModified Time None Recorded Advance Directives Directive Y: Payers Insurance Date Sequence Insurance Name Policy Number Policy Carbone Covered Member ID Carbone Member ID Guarantor Name 02/11/2024 1 [facility] (MEDICARE REPLACEMENT/A DVANTAGE - PPO) [id number] Oramel A Kumar [id number] Oramel A Kumar 05/24/2023 1 [employer] (MEDICARE REPLACEMENT/A DVANTAGE - PPO) [id number] Oramel A Kumar Jr [id number] Oramel A Kumar 12/11/2024 1 [facility] (MEDICARE REPLACEMENT/A DVANTAGE - PPO) [id number] [place]amel A [place] [id number] Oramel A [place] 05/24/2023 1 [employer] (MEDICARE REPLACEMENT/A DVANTAGE - PPO) [id number] Oramel A Kumar [id number] Oramel A [place] Notes Date Note Type Note Provider Name and Address Organization Details Recorded Time 07/27/2024 text/html He is here for follow-up. He continues to have issues with lower extremity edema left greater than right. To recap he had a large DVT in his area in November of Last year. We have had him on Lasix for some of the edema and stopped it about a week ago. This seems to be 1 of the swelling got worse. Sp Bolanos MD [address] [facility], [place], [address], [facility] - [place] 07/27/2024 11:50:46 09/26/2024 text/html 79 yo M returns for evaluation of lower extremity DVT and pulmonary embolism. Initially presented to the emergency room on December 15, 2023 with shortness of breath.Patient recently seen and had venous duplex of the left lower extremity performed on December 05, 2023. Findings of extensive deep venous thrombosis of the left lower extremity with DVT in the popliteal vein as well as the superficial femoral vein.Patient was started on anticoagulation with Xarelto at 20 mg p.o. daily. Patient was not started on starter pack dosing for acute venous thromboembolism. Dosing would be been 15 mg p.o. b.i.d.. Patient's renal function with creatinine clearance of 58. Serum creatinine 1.0. CT scan of the chest December 15, 2023 with findings bilateral left and right pulmonary artery filling defects extending to the lobar pulmonary arteries consistent with acute pulmonary embolism. Findings of small pulmonary nodules less than 5 mmPatient reports positive family history of blood clots as his mother's had prior venous thromboembolism.Patie nt treated with Lovenox while in the hospital. Discussed upon discharge resuming Xarelto 15 mg p.o. b.i.d. starter pack dosing for 21 days and then proceeding with 20 mg p.o. daily. Discussed taking medication with food to ensure absorption. CT scan of the abdomen pelvis performed on December 16, 2023 with no evidence mass or adenopathy. No area malignancy noted. Hypercoagulable evaluation performed on December 21, 2023 with no evidence of protein C or S deficiency. No evidence of factor 5 mutation. Negative factor 2 mutation. Factor 8 activity slightly elevated at 146%. Will schedule follow-up chest CT and venous duplex. If no evidence of clot will discuss discontinuing Xarelto. Will follow-up Venous duplex and chest CTA on February 29, 2024 with no evidence of blood clot. Patient returns on February 15, 2024. is doing well. He states he had labs per his primary care provider this morning. Discussed with patient discontinuing Xarelto or continuing prophylactic dose of 10 mg daily. Patient would like to proceed with prophylactic dose of 10mg for six months and if he does well will discontinue. Will follow up. Venous duplex of the bilateral lower extremities on August 09, 2024 with findings of right lower extremity no evidence of DVT. Left lower extremity with intraluminal filling defect in lack of compression of the distal superficial femoral vein popliteal vein and peroneal vein. Findings consistent with acute DVT. Patient started back on Xarelto at starter pack dosing. Patient returns on September 26, 2024. Discussed continuation of Xarelto. Would plan to repeat venous duplex in October 2024. Given recurrent pulmonary embolism would recommend indefinite anticoagulation. Jordan Ruelas MD [address], [place], [address], [place] - [facility] - [place] & [place] 09/26/2024 11:13:19 10/25/2024 text/html he is here for follow-up. He is history of frequent DVTs. We saw him a few months ago and he once again he would bilateral lower extremity DVT. He was started on Eliquis skin. Seems to be doing relatively well. Continues have some soft tissue swelling from this clot and he takes Lasix almost daily. He is borderline diabetic. His A1c is below 7 with diet control alone. History of GERD symptoms. Burning and pain when he eats especially in the morning. He was previously on famotidine. Sp Bolanos MD [address], [place], [address], [facility] & [place] 10/25/2024 11:27:44 11/12/2024 text/html He is here for swelling pain in his foot. [place] to be warm to touch and tender. He took meloxicam and it seems resolved his symptoms. He has a rash in his right calf which will go away. He reports lot of issues with hip pain in his left hip as well. No x-rays has been performed on joint. He had an episode where he passed out a few days ago. He normally walks about a mile back and forth to his mailbox for exercise. at the end of his walk a few days ago he was syncopal episode which was short-lived. He refused ER evaluation went back to his baseline. Denies Chest pain or shortness of breath. No slurred speech. Sp Bolanos MD [address], [place], [address], [facility] & [place] 11/12/2024 12:45:51
--- OUTSIDE RECORDS SUMMARY | 2024-12-28 10:05 | XMS_ITS | Referral Summary ---
Author Organization [employer] [facility] Address [address] [place] [address] Care Team Providers Care Center Director Lead Teacher Name Role Phone Sunny Bolanos MD Primary Care Provider [phone] Allergies No known active allergies Medications timolol [...] place to sleep or slept in a long term (including now)? 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 Gender Identity Not on file Sexual Orientation [...] 09/20/2022 12:46 PM EST Plan of Treatment Not on file Medical Devices Implanted Type Area Sash Finisher Device Identifier Shelf Expiration Date Model / Serial / Lot Cement Bone Smplx 6194-1-001 - [id number] Implanted:Qt y: 1 on 09/20/2022 at [facility] IMPLANTS Right: Knee DALILA:[employer] [id number] 01/22/2024 6194-1-00 1 / / [id number] D Cement Bone Smplx Hv 6194-1-001 - [id number] Implanted:Qt y: 1 on 09/20/2022 at [facility] IMPLANTS Right: Knee DALILA:[employer] [id number] 02/22/2024 6194-1-00 1 / / [id number] D Psn Art Surf Mc 14 Ve8-11gh Rt 32-5008-940- 14 - [id number] Implanted:Qt y: 1 on 09/20/2022 at [facility] TOTAL JOINT CONSTRUCT Right: Knee MAYDA:MAYDA [id number] 01/26/2026 42-5221-0 09-14 / / [id number] Tib Cemented Stem 5d Sz G R 08-8699-399- 02 - [id number] Implanted:Qt y: 1 on 09/20/2022 at [facility] [employer] Right: Knee MAYDA:MAYDA [id number] 05/24/2032 42-5320-0 79-02 / / [id number] Imp Knee Fem Psn Cr Cmt Sz11 R 99-3352-733- 02 - [id number] Implanted:Qt y: 1 on 09/20/2022 at [facility] T[employer] JO[employer]STRU[employer] Right: Knee MAYDA:MAYDA [id number] 05/15/2032 42-5026-0 70-02 / / [id number] Insurance Julia9 ARIANNA FIGUEROA [id number] [facility] MEDICARE ADVANTAGE Advance Directives For more information, please contact: [phone] Documents on File Type Date Recorded Patient Bods Developer Expl anation Advance Directives and Livin g Will 09/20/2022 10:38 AM * Full Code (Latest Code Status on File) Date Activated Date Inactivated Comments 09/20/2022 5:07 PM 09/21/2022 5:08 PM * Full Code Date Activated Date Inactivated Comments 09/20/2022 11:01 AM 09/20/2022 5:06 PM Care Teams Center Director Lead Teacher Relationship Specialty Start Date End Date Sunny Bolanos MD [address] [address] PCP - General Family Medicine 09/14/22
--- OUTSIDE RECORDS SUMMARY | 2024-12-28 10:06 | XMS_ITS | Continuity of Care Document ---
Author Organization [facility] Address [address] [place] [address] Care Team Providers Care Gauge Maker Apprentice Name Role Phone SP BOLANOS Primary Care Provider [phone] Assessment No assessment recorded. Plan of Treatment Reminders Order Date Submit Date Provider Last Modified By Organization Details Last Modified Time Details Appointments 3 MONTH FU 2024 08:15A Dea Bolanos MD Not available Not available Not available FOLLOW UP 2024 10:15A M Jordan Ruelas MD Not available Not available Not available Medicare Annual Wellness 30min 2024 09:30A Dea Bolanos MD Not available Not available Not available Lab None recorded. Referral None recorded. Procedures None recorded. Surgeries None recorded. Imaging XR, hip, unilatera l [email or web address] (Centralized Scheduling), [address], [place], [address], 11/26/2024 13:56:45 electroca rdiogram [email or web address] - [place], [address], [place], [address], 11/12/2024 11:50:56 holter monitor [address] (Centralized Scheduling), [address], [place], [address], 12/11/2024 09:56:47 Medication Orders ketoconaz ole 2 % topical cream 2024 025 [id number], [address] [facility], [place], [address], 11/12/2024 12:45:34 Patient TargetsNo targets recorded. Patient InstructionsNo instructions recorded. Reason for Referral None Reported. Results Created Date Observation Date Name Description Value Unit Range Abnormal Flag Note LastModifiedBy Organization Detail LastModifiedTime 11/13/19 25 11/13/2024 elect rocar diogr am No observ ation record ed. Formerly [facility] [place] [address], [place], [address], 11/13/2024 15:49:09 11/13/19 25 11/12/2024 elect rocar diogr am No observ ation record ed. [email or web address] Not Available 11/12 13:10:59 11/13/19 25 11/12/2024 XR, hip, unila teral , 2 or 3 view No observ ation record ed. [email or web address] In-House Imaging - [facility] [address] , [place], [address], 11/13/2024 15:43:52 11/30/19 25 11/29/2024 venou s duple x US lwr lt ext [facility] [address] [place] [address] Phone: Fax: Name: NEYMAR NAVARRO Exam Date: 11/30/19 : 1944 Age 79 years Gender : M Access ion: [id number] Physic melany: JORDAN RUELAS ty: [facility] Katiei ty HSV: Outpat ient Exam: VENOUS DUPLEX [...] Thank you for referr NEYMAR Putnam to [facility]. Legall y authen ticate d by EMIGDIO Flaherty 11-29 10:22: 00 CC'ed Logic: Orderi ng Provid er: JESSENIA DYER Attend ing Provid er: JESSENIA DYER [facility] Provid er: JESSENIA paige[address] - Physical Therapy [address] [facility], [place], [address], 11/30/2024 14:56:32 12/11/19 25 12/05/2024 HOLTER MONITO R NEYMAR NAVARRO [facility] 4 2 DATE OF SERVIC E: 2024 PROVID ER: Rashid Hernandez MD, [facility] DATE OF STUDY: 2024 to 2024. INDICA [...] 2024 17:17: 05 DT: 2024 17:59: 17 /[id number] Electr onical ly Signed By: DAMIEN Correa 12-10 08:42: 19 CC'ed Logic: Orderi ng Provid er: DAMIEN CROUCH [email or web address] [facility] - [facility] Therapy [address] , [place], [address], 12/11/2024 16:16:55 Result Notes None recorded. Procedures Surgical History Date Name Laterality Status Provider Name and Address Organization Details Recorded Time 03/28/20 24 Venipuncture completed Julita Owen PA-C [address] , [place], [address], [place] [facility] [place] & [place] 03/15/2024 12:34:55 02/15/20 24 Venipuncture completed Ann Flaherty [place] [facility] [place] & [place] 02/15/2024 13:40:07 02/01/20 23 repair of hip completed Steff Rothamer [place] [facility] [place] & [place] 03/12/2024 10:23:01 09/20/19 23 Joint Replacement completed Steff Rothamer [place] [facility] [place] 04/20/2024 09:24:51 01/29/20 21 Hernia Repair completed Steff [place]amer [place] [facility] [place] 05/20/2023 07:50:46 10/14/19 18 Hip Surgery completed Steff Rothamer [place] - [facility] & [place] 03/12/2024 10:24:59 02/23/20 17 procedure on neck completed Steff Rothamer ARIANNA - [facility] - [place] & [place] 05/20/2023 07:50:07 Knee Surgery completed Steff Rothamer ARIANNA - [facility] - [place] & [place] 05/20/2023 07:48:48 Eye Surgery completed Steff Rothamer ARIANNA - [facility] - [place] & [place] 05/20/2023 07:49:07 Colonoscopy completed Steff Rothamer ARIANNA - [facility] - [place] & [place] 05/20/2023 07:49:20 Cataract Surgery completed Steff Rothamer ARIANNA - [facility] - [place] & [place] 05/20/2023 07:50:32 Imaging Results None recorded. Procedure Notes None recorded. Medical Equipment None Reported. Allergies Allergen ID Allergen Name Allergen Category Reaction Reaction Severity Criticality Documentation Date Start Date Code Code System Note Provider Name and Address Organization Details Recorded Time 570037 brinzolam markus medicatio n other Not available low 03/12/2024 76388 1 RxNorm passe d out Steff mena, ARIANNA - [facility] & [place] 4 10:20:55 902146 lubiprost one medicatio n dizziness Not available high 03/12/2024 81795 3 RxNorm Steff mena, ARIANNA - [facility] & [place] 4 10:21:07 369541 timolol medicatio n other Not available low 03/12/2024 36166 RxNorm pass ed out from COMBI CHRISTINA, not Timol ol alone Steff mena, ARIANNA - [facility] & [place] 4 10:21:34 Medications Name Sig Start Date [...] completed Not Available Not Available Not Available Roblegy Ellipta 200 mcg-62.5 mcg-25 mcg powder for [...] Updated DateTime 5 175.26 cm 32.6 kg/m2 125936. 91 g 98.4 [degF] 94 % 94 % 70 /min 120 mm[Hg] 88 mm[Hg] Roxy Miramontes [facility] & [place] 5 11:20:30 Social History Question Answer Notes LastModified by Organizat ion Details LastModified Time Tobacco Smoking Status Never Smoker Roxy Miramontes [facility] & [place] 09/30/2022 16:37:36 Do You Have An Advance Directive? Yes [email or web address] Information not available 12/21/2022 Are You Blind Or Do You Have Difficulty Seeing? No [email or web address] Information not available 12/21/2022 Is Blood Transfusion Acceptable In An Emergency? No Information not available 04/20/2024 What Is Your Level Of Caffeine Consumption? Occasional [email or web address] Information not available 12/21/2023 Are You Deaf Or Do You Have Serious Difficulty Hearing? No [email or web address] Information not available 03/28/2024 What Type Of Diet Are You Following? REGULAR [email or web address] Information not available 03/28/2024 How Many Days Of Moderate To Strenuous Exercise, Like A Brisk Walk, Did You Do In The Last 7 Days? 6 [email or web address] Information not available 09/27/2024 Have There Been Any Changes To Your Family Or Social Situation? No [email or web address] Information no t available 03/28/2024 In General, Would You Say Your Health Is Fair [email or web address] Information not available 09/27/2024 How Would You [...] Bread, 1 Cup Of Whole-grain Or High-fiber Tukgf-nw-ngu Cereal, 1 2 Cup Of Cooked Cereal Such As Oatmeal, Or 1 2 Cup Of Cooked Brown Rice Or Whole Wheat Pasta.) 1-2 Servings Per Day Information not available 04/20/2024 In The Past 7 Days, How Many Servings Of Fried Or High-fat Foods Did You Typically Eat Each Day? (Examples Include Fried Chicken, Fried Fish, [place], [place], Potato Chips, [place] Chips, Doughnuts, Creamy Salad Dressings, And Foods Made With Whole Milk, Cream, Cheese, Or Mayonnaise.) 0 Servings Per Day Information not available 04/20/2024 In The Past 7 Days, How Many Sugar-sweetened (not Diet) Beverages Did You Typically Consume Each Day 0 Drinks Per Day Information not available 04/20/2024 Each Night, How Many Hours Of Sleep Do You Usually Get? 7-8 Hours [email or web address] Information not available 03/28/2024 Do You Snore Or Has Anyone Told You That You Snore? Yes [email or web address] Information not available 03/28/2024 In The Past 7 Days, How Often Have You [place] Sleepy During The Daytime? Always Information not available 04/20/2024 Do You Have Chronic Pain? No [email or web address] Information not available 03/28/2024 In The Past 7 Days, How Would You Rate Your Pain? Mild Pain(1-3) [email or web address] Information not available 03/28/2024 Are You In A Pain Management Program? No Information not available 03/28/2024 Do You Take Opioids For Your Pain? No [email or web address] Information not available 03/28/2024 How Often Is Stress A Problem For You In Handling Such Things As: Your Health, Your Finances, Your Family And Social Relationships, Your Work? Never Or Rarely Information not available 03/28/2024 How Often Do You Get The Social And Emotional Support You Need: Usually Information no t available 04/20/2024 In The Past 7 Days, Did You Need Help From Others To Take Care Of Things Such As Laundry And Housekeep- Ing, Banking, Shopping, Using The Telephone, Food Preparation, Transportation, Or Taking Your Own Medications? No [email or web address] Information not available 03/28/2024 Do You Live Alone? No [email or web address] Information not available 03/28/2024 Does Your Home Have Any Fall Risks (un-level Floors, Unfastened Rugs, Poor Lighting, Etc)? No [email or web address] Information not available 03/28/2024 Do You Feel Safe At Home? Yes [email or web address] Information not available 03/28/2024 Do You Have A Medical Power Of Thread Milling Machine Set Up Operator? Yes Information not available 04/20/2024 What Was The Date Of Your Most Recent Tobacco Screening? 04/24/2024 Information not available 2024 How Many Children Do You Have? 2 [email or web address] Information not available 09/27/2024 What Is Your Relationship Status? Information not available 03/28/2024 Do You Use Your Seat Belt Or Car Seat Routinely? Yes [email or web address] Information not available 03/28/2024 Are You Sexually Active? No Information not available 04/20/2024 Do You Have Smoke And Carbon Monoxide Detectors In Your Home? Yes [email or web address] Information not available 03/28/2024 Are You Passively Exposed To Smoke? No [email or web address] Information no t available 12/21/2022 Has Tobacco Cessation Counseling Been Provided? No [email or web address] Information not available 12/21/2023 Do You Have Difficulty Walking Or Climbing Stairs? No Information not available 04/20/2024 Sex: Unknown Functional Status Question Answer Note LastModified by Organizat ion Details LastModified Time Do you use any illicit or recreational drugs? No [email or web address] Information not available 12/21/2022 Do you or have you ever used any other forms of tobacco or nicotine? No [email or web address] Information not available 12/21/2023 What is your level of alcohol consumption? None Information not available 04/20/2024 Do you or have you ever used smokeless tobacco? Never used smokeless tobacco [email or web address] Information not available 12/21/2022 Do you have transportation difficulties? No [email or web address] Information not available 03/28/2024 Are you able to walk? [email or web address] Information not available 03/28/2024 Do you have difficulty doing errands alone? Yes cant drive at night [email or web address] Information not available 03/28/2024 Are you able to care for yourself? Yes [email or web address] Information n ot available 03/28/2024 Do you have difficulty dressing or bathing? No [email or web address] Information not available 03/28/2024 What is your exercise level? Moderate [email or web address] Information not available 09/27/2024 Mental Status Question Answer Note LastModified by Organizat ion Details LastModified Time Do you feel stressed (tense, restless, nervous, or anxious, or unable to sleep at night)? [id number] [email or web address] Information not available 12/21/2022 Do you have difficulty concentrating, remembering or making decisions? No Information no t available 03/28/2024 Family History [...] Response Muscle, Joint, or Bone Problems Y Other Y Gout Y Vision or Eye Problems Y Arthritis Y Back Problems Y Depression Y COPD Y Clotting Disorder Y Difficulty Swallowing Y High Cholesterol N Anesthesia Complications Y Pulmonary Embolism Y Headaches Y Hypertension N Immunizations Vaccine Type Date Status Note Provider Nam e and Address Organization Details Recorded Time Influenza, split virus, quadrivalent, preservative 8 completed Steff Rothamer null, [place] [facility] [place] & [place] 05/20/2023 07:44:01 Influenza, adjuvanted, quadrivalent, PF 1 completed Steff Rothamer null, [place] [facility] [place] 05/20/2023 07:44:01 COVID-19, mRNA, LNP-S, PF, 100 mcg/0.5mL dose or 50 mcg/0.25mL dose 1 completed Steff Rothamer null, [place] [facility] [place] 05/20/2023 07:44:01 COVID-19, mRNA, LNP-S, PF, 100 mcg/0.5mL dose or 50 mcg/0.25mL dose 1 completed Steff Rothamer null, [place] [facility] [place] 05/20/2023 07:44:01 pneumococcal polysaccharide PPV23 0 completed Steff Rothamer null, [place] [facility] [place] 05/20/2023 07:44:01 Influenza, high-dose, trivalent, PF 0 completed Steff Rothamer null, [place] [facility] [place] 05/20/2023 07:44:01 TST-PPD intradermal 4 completed Roxy Miramontes null, [place] [facility] [place] 09/20/2023 10:17:13 Influenza, adjuvanted, trivalent, PF 4 completed Sp Bolanos MD [address] [facility], [place], [address], [place] [facility] [place] 06/12/2024 12:19:27 Past Encounters Encounter ID Performer Location Encounter Start Date Encounter Closed Date Diagnosis/Indication Diagnosis SNOMED-CT Code Diagnosis ICD10 Code Diagnosis Note [id number] Sp Bolanos MD [facility] [address] [facility] [address] [place] [address] 10/25/2024 09:04:59 10/25/2024 09:39:27 History of deep vein thrombosis 184489944 Z86.718 Continue anticoagul ation. Almost likely be long-term. 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 Edema of l ower extremity 277842198 R60.0 . Continue Lasix potassium combinatio n for now. [id number] Sp Bolanos MD [facility] [address] [place] [address] 11/12/2024 11:10:40 11/12/2024 11:42:45 Gouty arthritis of left foot 5902016692 900957 M10.9 any use meloxicam on a rare p.r.n. basis for acute gouty pain. Dermatophytosis 71078511 B35.9 Pain of hip region 25752 002 M25.552 Syncope 661409850 R55 [id number] Marck Diaz MD [facility] [address] [facility] [address] [place] [address] 11/12/2024 11:47:51 11/12/2024 12:40:39 Pain of hip region 96542826 M25.552 Health Concerns Section Related Observation LastModified by Organization Detai ls LastModified Time None Recorded Concern Status LastModified by Organization Details LastModified Time None Recorded Payers Encounter Date Sequence Insurance Name Policy Number Policy Carbone Covered Member ID Carbone Member ID Guarantor Name 11/12/2024 1 [facility] (MEDICARE REPLACEMENT/A DVANTAGE - PPO) [id number] Oramel A Kumar [id number] Oramel A [place] Notes Date Note Type Note Provider Name and Address Organization Details Recorded Time 11/12/2024 text/html He is here for swelling pain in his foot. [place] to be warm to touch and tender. [...] breath. No slurred speech. Sp Bolanos MD [address] [facility], [place], [address], [facility] - [facility] - [place] & [place] 11/12/2024 12:45:51
--- OUTSIDE RECORDS SUMMARY | 2024-12-28 10:06 | XMS_ITS | Continuity of Care Document ---
Author Organization [facility] Address [address] [place] [address] Care Team Providers Care Study Specialist Name Role Phone SP BOLANOS Primary Care Provider Assessment No assessment recorded. [...] l, 2 or 3 view 2024 025 [email or web address] In-House Imaging - [facility], [address], [place], [address], 11/13/2024 07:52:40 Medication Orders None recorded. Patient TargetsNo targets recorded. Patient InstructionsNo instructions recorded. Reason for Referral None Reported. Results Created Date Observation Date Name Description Value Unit Range Abnormal Flag Note LastModifiedBy Organization Detail LastModifiedTime 11/13/1911/13/2024 elect allen nguyen am No observ ation record ed. [facility] - [address], [place], [address], 11/13/2024 15:49:09 11/13/19 25 11/12/2024 elect allen diogr am No observ ation record ed. [email or web address] Not Available 11/12 13:10:59 11/13/19 25 11/12/2024 XR, hip, unila teral , 2 or 3 view No observ ation record ed. [email or web address] In-House Imaging - [facility] [address] , [place], [address], 11/13/2024 15:43:52 11/30/19 25 11/29/2024 [email or web address] s duple x US lwr lt ext [facility] [address] [place] [address] Phone: Fax: Name: NEYMAR NAVARRO Exam Date: 11/30/19 : 1944 Age 79 years Gender : M Access ion: [id number] Physic melany: GOMEZ RUELAS Facili ty: [facility] Facili ty HSV: Outpat ient [...] Thank you for referr NEYMAR Putnam to [facility]. Legall y authen ticate d by EMIGDIO Flaherty 11-29 10:22: 00 CC'ed Logic: Orderi ng Provid er: JESSENIA DYER Attend ing Provid er: JESSENIA DYER Admitt ing Provid er: JESSENIA DYER [email or web address] [facility] [address], [place], [address], 11/30/2024 14:56:32 12/11/19 25 12/05/2024 HOLTER MONITO R DEE DEE Malin, NEYMAR [facility] 4 2 DATE OF SERVIC E: 2024 PROVID ER: Rashid Hernandez MD, [facility] DATE OF STUDY: 2024 to 2024. INDICA [...] block. DICTAT ED BY: Rashid Hernandez MD, [facility] JT/MOD L DD: 2024 17:17: 05 DT: 2024 17:59: 17 /[id number] Electr onical ly Signed By: DAMIEN Correa 12-10 08:42: 19 CC'ed Logic: Orderi ng Provid er: DAMIEN CROUCH [email or web address] [facility] [address], [place], [address], 12/11/2024 16:16:55 Result Notes None recorded. Procedures Surgical History Date Name Laterality Status Provider Name and Address Organization Details Recorded Time 03/28/20 24 Venipuncture completed Julita Owen PA-C [address], [place], [address], [place] [facility] [place] [facility] [place] 03/15/2024 12:34:55 02/15/20 24 Venipuncture completed Ann Flaherty [place] [facility] [place] 02/15/2024 13:40:07 02/01/20 23 repair of hip completed Steff Rothamer [place] [facility] [place] 03/12/2024 10:23:01 09/20/19 23 Joint Replacement completed Steff [place]amer [place] [facility] [place] 04/20/2024 09:24:51 01/29/20 21 Hernia Repair completed Steff [place]amer [place] [facility] [place] [facility] [place] 05/20/2023 07:50:46 10/14/19 18 Hip Surgery completed Steff [place] [facility] [place] 03/12/2024 10:24:59 02/23/20 17 procedure on neck completed [facility]ff [place] [facility] [place] 05/20/2023 07:50:07 Knee Surgery completed Steff [place] [facility] [place] [facility] [place] 05/20/2023 07:48:48 Eye Surgery completed Steff [place]amer [place] [facility] [place] [facility] [place] 05/20/2023 07:49:07 Colonoscopy completed Steff [place] [facility] [place] [facility] [place] 05/20/2023 07:49:20 Cataract Surgery completed Steff [place]amer [place] [facility] [place] [facility] [place] 05/20/2023 07:50:32 Imaging Results None recorded. Procedure Notes None recorded. Medical Equipment None Reported. Allergies Allergen ID Allergen Name Allergen Category Reaction Reaction Severity Criticality Documentation Date Start Date Code Code System Note Provider Name and Address Organization Details Recorded Time 668445 brinzolam markus medicatio n other Not available low 03/12/2024 20794 1 RxNorm passe d out ARIANNA Jacobs [facility] & [place] 4 10:20:55 627455 lubiprost one medicatio n dizziness Not available high 03/12/2024 62397 3 RxNorm ARIANNA Jacobs [facility] [place] 4 10:21:07 604040 timolol medicatio n other Not available low 03/12/2024 75111 RxNorm pass ed out from JORGE VASQUEZ, not Timol ol alone ARIANNA Jacobs [facility] [place] 4 10:21:34 Medications Name Sig Start Date [...] Updated DateTime 5 175.26 cm 32.6 kg/m2 863284. 91 g 98.4 [degF] 94 % 94 % 70 /min 120 mm[Hg] 88 mm[Hg] Roxy Hooper [facility] & [place] 5 11:20:30 Social History Question Answer Notes LastModified by Organizat ion Details LastModified Time Tobacco Smoking Status Never Smoker Roxy mena, ARIANNA Hooper [facility] & [place] 09/30/2022 16:37:36 Do You Have An Advance Directive? Yes [email or web address] Information not available 12/21/2022 Are You Blind Or Do You Have Difficulty Seeing? No [email or web address] Information not available 12/21/2022 Is Blood Transfusion Acceptable In An Emergency? No Information not available 04/20/2024 What Is Your Level Of Caffeine Consumption? Occasional [email or web address] Information not available 12/21/2023 Are You Deaf Or Do You Have Serious Difficulty Hearing? No Information not available 03/28/2024 What Type Of Diet Are You Following? REGULAR [email or web address] Information not available 03/28/2024 How Many Days Of Moderate To Strenuous Exercise, Like A Brisk Walk, Did You Do In The Last 7 Days? 6 [email or web address] Information not available 09/27/2024 Have There Been Any Changes To Your Family Or Social Situation? No [email or web address] Information no t available 03/28/2024 In General, Would You Say Your Health Is Fair [email or web address] Information not available 09/27/2024 How Would You [...] Bread, 1 Cup Of Whole-grain Or High-fiber Mdemi-xc-ldt Cereal, 1 2 Cup Of Cooked Cereal Such As Oatmeal, Or 1 2 Cup Of Cooked Brown Rice Or Whole Wheat Pasta.) 1-2 Servings Per Day Information not available 04/20/2024 In The Past 7 Days, How Many Servings Of Fried Or High-fat Foods Did You Typically Eat Each Day? (Examples Include Fried Chicken, Fried Fish, Coloey, [place], Potato Chips, [place] Chips, Doughnuts, Creamy Salad Dressings, And Foods Made With Whole Milk, Cream, Cheese, Or Mayonnaise.) 0 Servings Per Day Information not available 04/20/2024 In The Past 7 Days, How Many Sugar-sweetened (not Diet) Beverages Did You Typically Consume Each Day 0 Drinks Per Day Information not available 04/20/2024 Each Night, How Many Hours Of Sleep Do You Usually Get? 7-8 Hours [email or web address] Information not available 03/28/2024 Do You Snore Or Has Anyone Told You That You Snore? Yes [email or web address] Information not available 03/28/2024 In The Past 7 Days, How Often Have You [place] Sleepy During The Daytime? Always Information not available 04/20/2024 Do You Have Chronic Pain? No [email or web address] Information not available 03/28/2024 In The Past 7 Days, How Would You Rate Your Pain? Mild Pain(1-3) Information not available 03/28/2024 Are You In A Pain Management Program? No [email or web address] Information not available 03/28/2024 Do You Take Opioids For Your Pain? No [email or web address] Information not available 03/28/2024 How Often Is Stress A Problem For You In Handling Such Things As: Your Health, Your Finances, Your Family And Social Relationships, Your Work? Never Or Rarely [email or web address] Information not available 03/28/2024 How Often Do You Get The Social And Emotional Support You Need: Usually Information no t available 04/20/2024 In The Past 7 Days, Did You Need Help From Others To Take Care Of Things Such As Laundry And Housekeep- Ing, Banking, Shopping, Using The Telephone, Food Preparation, Transportation, Or Taking Your Own Medications? No Information not available 03/28/2024 Do You Live Alone? No [email or web address] Information not available 03/28/2024 Does Your Home Have Any Fall Risks (un-level Floors, Unfastened Rugs, Poor Lighting, Etc)? No [email or web address] Information not available 03/28/2024 Do You Feel Safe At Home? Yes Information not available 03/28/2024 Do You Have A Medical Power Of Oncologist? Yes Information not available 04/20/2024 What Was The Date Of Your Most Recent Tobacco Screening? 04/24/2024 Information not available 2024 How Many Children Do You Have? 2 Information not available 09/27/2024 What Is Your Relationship Status? [email or web address] Information not available 03/28/2024 Do You Use Your Seat Belt Or Car Seat Routinely? Yes [email or web address] Information not available 03/28/2024 Are You Sexually Active? No Information not available 04/20/2024 Do You Have Smoke And Carbon Monoxide Detectors In Your Home? Yes [email or web address] Information not available 03/28/2024 Are You Passively Exposed To Smoke? No Information no t available 12/21/2022 Has Tobacco Cessation Counseling Been Provided? No [email or web address] Information not available 12/21/2023 Do You Have Difficulty Walking Or Climbing Stairs? No Information not available 04/20/2024 Sex: Unknown Functional Status Question Answer Note LastModified by Organizat ion Details LastModified Time Do you use any illicit or recreational drugs? No [email or web address] Information not available 12/21/2022 Do you or have you ever used any other forms of tobacco or nicotine? No [email or web address] Information not available 12/21/2023 What is your level of alcohol consumption? None Information not available 04/20/2024 Do you or have you ever used smokeless tobacco? Never used smokeless tobacco [email or web address] Information not available 12/21/2022 Do you have transportation difficulties? No Information not available 03/28/2024 Are you able to walk? [email or web address] Information not available 03/28/2024 Do you have difficulty doing errands alone? Yes cant drive at night [email or web address] Information not available 03/28/2024 Are you able to care for yourself? Yes Information n ot available 03/28/2024 Do you have difficulty dressing or bathing? No [email or web address] Information not available 03/28/2024 What is your exercise level? Moderate Information not available 09/27/2024 Mental Status Question Answer Note LastModified by Organizat ion Details LastModified Time Do you feel stressed (tense, restless, nervous, or anxious, or unable to sleep at night)? [id number] Information not available 12/21/2022 Do you have difficulty concentrating, remembering or making decisions? No [email or web address] Information no t available 03/28/2024 Family History [...] split virus, quadrivalent, preservative 8 completed Steff Aval[place] [facility] 05/20/2023 07:44:01 Influenza, adjuvanted, quadrivalent, PF 1 completed Steff Aval[place] [facility] [place] [facility] 05/20/2023 07:44:01 COVID-19, mRNA, LNP-S, PF, 100 mcg/0.5mL dose or 50 mcg/0.25mL dose 1 completed Steff Rothamer null[place] [facility] [place] [facility] [place] 05/20/2023 07:44:01 COVID-19, mRNA, LNP-S, PF, 100 mcg/0.5mL dose or 50 mcg/0.25mL dose 1 completed Steff Rothamer [place] [facility] [place] [facility] [place] 05/20/2023 07:44:01 pneumococcal polysaccharide PPV23 0 completed Steff [place] [facility] [place] [facility] [place] 05/20/2023 07:44:01 Influenza, high-dose, trivalent, PF 0 completed Steff [place] [facility] [place] 05/20/2023 07:44:01 TST-PPD intradermal 4 completed Roxy Miramontes null[place] [facility] [place] 09/20/2023 10:17:13 Influenza, adjuvanted, trivalent, PF 4 completed Sp Bolanos MD [address], [place], [address], [place] [facility] [place] [facility] [place] 06/12/2024 12:19:27 Past Encounters Encounter ID Performer Location Encounter Start Date Encounter Closed Date Diagnosis/Indication Diagnosis SNOMED-CT Code Diagnosis ICD10 Code Diagnosis Note [id number] Sp Bolanos MD [facility] [address] [facility] [address] [place] [address] 10/25/2024 09:04:59 10/25/2024 09:39:27 History of deep vein thrombosis 034761744 Z86.718 Continue anticoagul ation. Almost likely be long-term. 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 Edema of l ower extremity 903387170 R60.0 . Continue Lasix potassium combinatio n for now. [id number] Sp Bolanos MD [facility] - [address] [place] [address] 11/12/2024 11:10:40 11/12/2024 11:42:45 Gouty arthritis of left foot 5336368469 317191 M10.9 any use meloxicam on a rare p.r.n. basis for acute gouty pain. Dermatophytosis 73774944 B35.9 Pain of hip region 70976 002 M25.552 [facility] [id number] [id number] Marck Diaz MD [facility] [address] [place] [address] 11/12/2024 11:47:51 11/12/2024 12:40:39 Pain of hip region 69579933 M25.552 Health Concerns Section Related Observation LastModified by Organization Detai ls LastModified Time None Recorded Concern Status LastModified by Organization Details LastModified Time None Recorded Payers Encounter Date Sequence Insurance Name Policy Number Policy Carbone Covered Member ID Carbone Member ID Guarantor Name 11/12/2024 1 [facility] (MEDICARE REPLACEMENT/A DVANTAGE - PPO) [id number] [employer] [id number] [employer] Notes Date Note Type Note Provider Name and Address Organization Details Recorded Time 11/12/2024 text/html He is here for swelling pain in his foot. [place] to be warm to touch and tender. [...] breath. No slurred speech. Sp Bolanos MD [address], [place], [address], [facility] - [place] 11/12/2024 12:45:51
[2024-12-28 10:45] VITALS: PULSE 55; PULSE 57
[2024-12-28] MEDS: ALBUTEROL 0.083% 2.5 MG/3 ML NEB IH (10:45)
== END 2024-12-28 23:59 | disposition home or self-care (01) ==
LOC: RT 10:02
PROVIDERS: PCP Family Medicine; Visit Provider Internal Medicine Pulmonary Disease
DX: R06.09 Other forms of dyspnea (principal); R06.02 Shortness of breath
CPT/HCPCS: 94010; 94618; 94640

== ENCOUNTER 2025-01-10 13:58 | Outpatient (CLI) | payer MEDICARE, SELFPAY ==
--- OUTSIDE RECORDS SUMMARY | 2024-11-29 08:15 | XMS_ITS | Encounter Summary ---
Author Organization Healthcare Address [address] [place] [address] Care Team Providers Care Wire Fence Builder Name Role Phone Sunny Bolanos MD Primary Care Provider [phone] Encounter Details Date Type Department Care Team (Late st Contact Info) Description 11/29/2024 8:15 AM EDT Office Visit [facility] [address] [place] [address] Nora Escalante MD [address] [place] [address] Primary open-angle glaucoma, left eye, [...] OU today if not already done at [facility] since late 2022 - if done, print [...] nausea in association. No recent visits at [facility]. Getting gel injections L knee At last [...] try to use only for flare-ups Per [facility] notes, IOPs were 13 T 11 on [...] Raynaud's: frequent ocular migraines. Comments: - from [place] originally ([facility]) - lives in [place] (bought a farm a few years ago) [...] Description 06/06/2025 11:00 AM EST Office Visit [facility] [address] [place] [address] Nora Escalante MD [address] [facility] [address] [place] [address] documented as of this encounter [...] documented as of this encounter Care Teams Wire Fence Builder Relationship Specialty Start Date End Date Sunny Bolanos MD [facility] [address] [place] [phone] PCP - General 11/12/21 documented as of this encounter
--- OUTSIDE RECORDS SUMMARY | 2024-12-08 21:35 | XMS_ITS | Encounter Summary ---
Author Organization [facility] Address [address] [place] [address] Care Team Providers Care Pulp Maker Name Role Phone Sunny Bolanos MD Primary Care Provider [phone] Encounter Details Date Type Department Care Team (Late st Contact Info) Description 12/08/2024 9:35 PM EDT Ancillary Procedure [facility] [address] [place] [address] Social History Tobacco Use Types [...] Description 06/06/2025 11:00 AM EST Office Visit [facility] [address] [place] [address] Nora Escalante MD [address] [facility] [address] [place] [address] documented as of this encounter [...] documented as of this encounter Care Teams Pulp Maker Relationship Specialty Start Date End Date Sunny Bolanos MD [facility]8 [facility] [address] [place] [address] PCP - General 11/12/21 documented as of this encounter
--- NOTE | 2025-01-10 14:00 | CT_ITS ---
FINAL REPORT TECHNIQUE: Thin section axial images were obtained from the lung apices through the upper abdomen without contrast. This study was performed with techniques to keep radiation doses as low as reasonably achievable (ALARA). Individualized dose reduction techniques using automated exposure control or adjustment of mA and/or kV according to the patient's size were employed. CLINICAL HISTORY: .INTERSTITIAL LUNG DISEASE COMPARISON: None FINDINGS: There is no mediastinal, hilar, or axillary lymphadenopathy. No pleural or pericardial effusion. There is a 7 mm nodule along the right minor fissure, that likely represents an intrafissural node. No consolidation is identified. Limited, unenhanced evaluation of the upper abdomen is without acute abnormality. Note is made of fatty infiltration of the liver. There is no acute osseous abnormality. High-resolution images reveal no evidence of fibrosis, interlobular septal thickening, or significant bronchiectasis. There is no air trapping with expiratory or prone exams. IMPRESSION: No acute intrathoracic abnormality. 7 mm nodule along the right minor fissure, that likely represents an intrafissural node. Reviewed, Interpreted and Dictated by Mavis Ramos MD Transcribed by Danay Diaz Authenticated and [facility]
--- OUTSIDE RECORDS SUMMARY | 2025-01-10 14:16 | XMS_ITS | Clinical Summary ---
Author Organization [employer] [facility] Address [address] [place] [address] Care Team Providers Care Musical Engineer Name Role Phone Sunny Bolanos MD Primary Care Provider [phone] Allergies No known active allergies Medications timolol [...] a nursing home (including now)? 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 Gender Identity Not on file Sexual Orientation [...] 21, 04/24/2020 Medical Devices Implanted Type Area Blindstitch Lining Feller Device Identifier Shelf Expiration Date Model / Serial / Lot Cement Bone Smplx 6194-1-001 - [id number] Implanted:Qt y: 1 on 09/20/2022 at [facility] IMPLANTS Right: Knee DALILA:[employer] [id number] 01/22/2024 6194-1-00 / / [id number] D Cement Bone Smplx 6194-1-001 - [id number] Implanted:Qt y: 1 on 09/20/2022 at [facility] IMPLANTS Right: Knee DALILA:[employer] [id number] 02/22/2024 6194-1-00 / / [id number] D Psn Art Surf 14 Ve8-11gh 08-3132-035- 14 - [id number] Implanted:Qt y: 1 on 09/20/2022 at [facility] TOTAL JOINT CONSTRUCT Right: Knee MAYDA:MAYDA [id number] 01/26/2026 42-5221-0 04-07 [id number] Tib Cemented Stem 5d Sz G R 90-0311-614- 02 - [id number] Implanted:Qt y: 1 on 09/20/2022 at [facility] [employer] Right: Knee MAYDA:MAYDA [id number] 05/24/2032 42-5320-0 79-02 / / [id number] Imp Knee Fem Psn Cr Cmt Sz11 R 34-9404-224- 02 - [id number] Implanted:Qt y: 1 on 09/20/2022 at [facility] [employer] Right: Knee MAYDA:MAYDA [id number] 05/15/2032 42-5026-0 70-02 / / [id number] Insurance [facility] MEDICARE ADVANTAGE Advance Directives For more information, please contact: [phone] Documents on File Type Date Recorded Patient Expediter Clerk Expl anation Advance Directives and Livin g Will 09/20/2022 10:38 AM * Full Code (Latest Code Status on File) Date Activated Date Inactivated Comments 09/20/2022 5:07 PM 09/21/2022 5:08 PM * Full Code Date Activated Date Inactivated Comments 09/20/2022 11:01 AM 09/20/2022 5:06 PM Care Teams Musical Engineer Relationship Specialty Start Date End Date Sunny Bolanos MD [facility] [address] [address] PCP - General Family Medicine 09/14/22
--- OUTSIDE RECORDS SUMMARY | 2025-01-10 14:16 | XMS_ITS | Encounter Summary ---
Author Organization Healthcare Address [address] [place] [address] Care Team Providers Care Nursing Consultant Name Role Phone Sunny Bolanos MD Primary Care Provider [phone] Encounter Details Date Type Department Care Team [...] Description 06/06/2025 11:00 AM EST Office Visit [facility] [address] [place] [address] Nora Escalante MD [address] [place] [address] documented as of this encounter Visit Diagnoses Not on filedocumented in this encounter Additional Health Concerns Assessment Noted Time A fall risk assessment has been complete d for the patient 11/29/2024 8:31 AM EDT A Body Mass Index follow-up plan has been documented for the patient 12/08/2024 9:47 PM EDT documented as of this encounter Care Teams Nursing Consultant Relationship Specialty Start Date End Date Sunny Bolanos MD [facility] [address] [place] [address] PCP - General 11/12/21 documented as of this encounter
--- OUTSIDE RECORDS SUMMARY | 2025-01-10 14:16 | XMS_ITS | Data Portability ---
Author Organization [facility] - [facility] & BREN Hawthorne ADMIN Address [address] [place] [address] Care Team Providers Care Portable Machine Sander Name Role Phone SP BOLANOS Primary Care Provider [phone] Assessment No assessment recorded. Plan of Treatment [...] HbA1c (hemoglob in A1c), blood 2024 025 [email or web address] [facility] - [place], [address], [place], [address], 10/25/2024 09:37:16 Referral None recorded. Procedures None recorded. Surgeries None recorded. Imaging XR, hip, unilatera l, 2 or 3 view 2024 025 In-House Imaging - [facility], [address], [place], [address], 11/13/2024 07:52:40 XR, hip, unilatera l 2024 025 [email or web address] [facility] (Centralized Scheduling), [address], [place], [address], 11/26/2024 13:56:45 electroca rdiogram [address] - [place], [address], [place], [address], 11/12/2024 11:50:56 holter monitor [address] (Centralized Scheduling), [address] [facility], [place], [address], 12/11/2024 09:56:47 US, duplex, venous, lower extremity [address] (Centralized Scheduling), [address] [facility], [place], [address], 08/17/2024 10:09:21 Medication Orders ketoconaz ole 2 % topical cream 2024 025 [facility], [address] [place], [address], 11/12/2024 12:45:34 furosemid e 20 mg tablet 2024 025 [facility], [address] [place], [address], 10/25/2024 09:38:03 omeprazol e 40 mg capsule,d elayed release 2024 025 [facility], [address] [place], [address], 10/25/2024 09:38:01 furosemid e 20 mg tablet [address] [facility], [address] [place], [address], 09/26/2024 10:31:38 Patient TargetsNo targets recorded. Patient InstructionsNo instructions recorded. Reason for Referral None Reported. Results Created Date Observation Date Name Description Value Unit Range Abnormal Flag Note LastModifiedBy Organization Detail LastModifiedTime 10/26/19 25 10/25/2024 HbA1c (hemo globi n A1c), blood HbA1c 6.5 Not Available [facility] [place] [address], [place], [address], 10/25/2024 09:27:05 08/09/19 25 08/09/2024 venou s duple x US lwr ext bilat [facility] [address] [place] [address] Phone: Fax: Name: NEYMAR NAVARRO Exam Date: 025 : 1944 Age 79 years Gender : M Access ion: [id number] Physic melany: Sp Elder ty: [facility] Facili ty HSV: Outpat ient Exam: VENOUS [...] for referr jimena FUNEZ Dea LISAELISHA to [facility] ity Hospit al. Legall y authen ticate d by EMIGDIO Flaherty 08-09 10:28: 18 CC'ed Logic: Orderi ng Provid er: ABRIL SNOWDEN CC Provid er: ABRIL SNOWDEN Attend ing Provid er: ABRIL SNOWDEN Referr ing Provid er: ABRIL SNOWDEN Admitt ing Provid er: ABRIL SNOWDEN [email or web address] [facility] - Physical Therapy [address] [facility], [place], [address], 08/09/2024 12:14:59 11/13/19 25 11/13/2024 elect rocar diogr am No observ ation record ed. [facility] [place] [address], [place], [address], 11/13/2024 15:49:09 11/13/19 25 11/12/2024 elect rocar diogr am No observ ation record ed. [email or web address] Not Available 11/12 13:10:59 11/13/19 25 11/12/2024 XR, hip, unila teral , 2 or 3 view No observ ation record ed. In-House Imaging - [facility] [address], [place], [address], 11/13/2024 15:43:52 11/30/19 25 11/29/2024 bisi maynard x US lwr lt ext [facility] [address] [place] [address] Phone: Fax: Name: NEYMAR NAVARRO Exam Date: 11/30/19 25 : 1944 Age 79 years Gender : M Access ion: [id number] Physic melany: JORDAN RUELAS Facili ty: [facility] Facili ty HSV: Outpat ient Exam: VENOUS [...] Thank you for referr NEYMAR Putnam to [facility] al. Legall y authen ticate d by EMIGDIO Flaherty 11-29 10:22: 00 CC'ed Logic: Orderi ng Provid er: JESSENIA DYER Attend ing Provid er: JESSENIA DYER Admitt ing Provid er: JESSENIA [address] [place] [address] - Physical Therapy [address] [facility], [place], [address], 11/30/2024 14:56:32 12/11/19 25 12/05/2024 HOLTER MONITO NEYMAR MORENO [facility] 4 2 DATE OF SERVIC E: 2024 PROVID ER: Rashid Hernandez MD, [facility] DATE OF STUDY: 2024 to 2024. INDICA [...] 2024 17:17: 05 DT: 2024 17:59: 17 /[id number] Electr onical ly Signed By: DAMIEN Correa 12-10 08:42: 19 CC'ed Logic: Orderi ng Provid er: DAMIEN CROUCH [email or web address] [facility] - Physical Therapy [address] , [place], [address], 12/11/2024 16:16:55 Result Notes None recorded. Procedures Surgical History Date Name Laterality Status Provider Name and Address Organization Details Recorded Time 03/28/20 24 Venipuncture completed Julita Owen PA-C [address], [place], [address], [facility] [place] [facility] [place] 03/15/2024 12:34:55 02/15/20 24 Venipuncture completed Ann Flaherty [facility] [place] [facility] [place] 02/15/2024 13:40:07 02/01/20 23 repair of hip completed Steff Avalos [place] [facility] [place] [facility] [place] 03/12/2024 10:23:01 09/20/19 23 Joint Replacement completed Steff [place]amer [place] - [facility] [place] [facility] [place] 04/20/2024 09:24:51 01/29/20 21 Hernia Repair completed Steff [place] [facility] [place] [facility] [place] 05/20/2023 07:50:46 10/14/19 18 Hip Surgery completed Steff [place] [facility] [place] [facility] [place] 03/12/2024 10:24:59 02/23/20 17 procedure on neck completed Steff [place] [facility] [place] [facility] [place] 05/20/2023 07:50:07 07/25/19 17 Cataract Surgery completed Steff [place] [facility] [place] [facility] [place] 01/07/2025 16:23:56 Knee Surgery completed Steff [place] [facility] [place] [facility] [place] 05/20/2023 07:48:48 Eye Surgery completed Steff [place] [facility] [place] [facility] [place] 05/20/2023 07:49:07 Colonoscopy completed Steff [place] [facility] [place] [facility] [place] 05/20/2023 07:49:20 tonsilectomy/valerie noids completed Steff [place]amer [place] [facility] [place] [facility] [place] 01/07/2025 16:27:01 Back Surgery completed Steff [place]amer [place] [facility] [place] [facility] [place] 01/07/2025 16:27:18 Imaging Results None recorded. Procedure Notes None recorded. Medical Equipment None Reported. Allergies Allergen ID Allergen Name Allergen Category Reaction Reaction Severity Criticality Documentation Date Start Date Code Code System Note Provider Name and Address Organization Details Recorded Time 359805 brinzolam markus medicatio n other Not available low 03/12/2024 29375 1 RxNorm passe d out Steff [place] null, [place] - [facility] [place] [facility] [place] 4 10:20:55 971031 lubiprost one medicatio n dizziness Not available high 03/12/2024 11415 3 RxNorm Steff Rothamer null, [place] [facility] [place] [facility] [place] 4 10:21:07 [id number] timolol medicatio n other Not available low 03/12/2024 05421 RxNorm pass ed out from JORGE VASQUEZ, not Timol ol alone Steff Crystalamer null, [place] - [facility] [place] [facility] [place] 4 10:21:34 Medications Name Sig Start Date [...] Updated DateTime 5 175.26 cm 33.2 kg/m2 755811. 28 g 97.3 [degF] 92 % 92 % 72 /min 118 mm[Hg] 84 mm[Hg] Roxy Miramontes [facility] & [place] 5 09:14:15 Date Recorded Body height Body mass index (BMI) Body weight Body temperature Oxygen saturation Oxygen saturation in Arterial blood by Pulse oximetry Heart rate Systolic blood pressure Diastolic blood pressure Provider Name and Address Organization Details Last Updated DateTime 5 175.26 cm 32.5 kg/m2 33237.6 8 g 97.8 [degF] 98 % 98 % 59 /min 131 mm[Hg] 71 mm[Hg] Daksha KELLER [facility] & [place] 5 10:33:30 Date Recorded Body height Body mass index (BMI) Body weight Body temperature Oxygen saturation Oxygen saturation in Arterial blood by Pulse oximetry Heart rate Systolic blood pressure Diastolic blood pressure Provider Name and Address Organization Details Last Updated DateTime 5 175.26 cm 32.5 kg/m2 38338.3 2 g 98 [degF] 93 % 93 % 92 /min 124 mm[Hg] 90 mm[Hg] Roxy KELLER [facility] & [place] 5 09:13:01 Date Recorded Body height Body mass index (BMI) Body weight Body temperature Oxygen saturation Oxygen saturation in Arterial blood by Pulse oximetry Heart rate Systolic blood pressure Diastolic blood pressure Provider Name and Address Organization Details Last Updated DateTime 5 175.26 cm 32.6 kg/m2 027922. 91 g 98.4 [degF] 94 % 94 % 70 /min 120 mm[Hg] 88 mm[Hg] Roxy KELLER [facility] & [place] 5 11:20:30 Social History Question Answer Notes LastModified by Organizat ion Details LastModified Time Tobacco Smoking Status [facility] [place] 09/30/2022 16:37:36 Do You Have An Advance Directive? Yes [email or web address] Information not available 12/21/2022 Are You Blind Or Do You Have Difficulty Seeing? No Information not available 12/21/2022 Is Blood Transfusion Acceptable In An Emergency? No Information not available 04/20/2024 What Is Your Level Of Caffeine Consumption? Occasional [email or web address] Information not available 12/21/2023 Are You Deaf Or Do You Have Serious Difficulty Hearing? No [email or web address] Information not available 03/28/2024 What Type Of Diet Are You Following? REGULAR [email or web address] Information not available 03/28/2024 How Many Days Of Moderate To Strenuous Exercise, Like A Brisk Walk, Did You Do In The Last 7 Days? 6 [email or web address] Information not available 09/27/2024 Have There Been Any Changes To Your Family Or Social Situation? No Information no t available 03/28/2024 In General, Would You Say Your Health Is Fair [email or web address] Information not available 09/27/2024 How Would You [...] Bread, 1 Cup Of Whole-grain Or High-fiber [id number] Cereal, 1 2 Cup Of Cooked Cereal Such As Oatmeal, Or 1 2 Cup Of Cooked Brown Rice Or Whole Wheat Pasta.) 1-2 Servings Per Day Information not available 04/20/2024 In The Past 7 Days, How Many Servings Of Fried Or High-fat Foods Did You Typically Eat Each Day? (Examples Include Fried Chicken, Fried Fish, [place], [place], Potato Chips, [place] Chips, Doughnuts, Creamy Salad Dressings, And Foods Made With Whole Milk, Cream, Cheese, Or Mayonnaise.) 0 Servings Per Day Information not available 04/20/2024 In The Past 7 Days, How Many Sugar-sweetened (not Diet) Beverages Did You Typically Consume Each Day 0 Drinks Per Day Information not available 04/20/2024 Each Night, How Many Hours Of Sleep Do You Usually Get? 7-8 Hours [email or web address] Information not available 03/28/2024 Do You Snore Or Has Anyone Told You That You Snore? Yes Information not available 03/28/2024 In The Past 7 Days, How Often Have You [place] Sleepy During The Daytime? Always Information not available 04/20/2024 Do You Have Chronic Pain? No Information not available 03/28/2024 In The Past 7 Days, How Would You Rate Your Pain? Mild Pain(1-3) [email or web address] Information not available 03/28/2024 Are You In A Pain Management Program? No [email or web address] Information not available 03/28/2024 Do You Take Opioids For Your Pain? No [email or web address] Information not available 03/28/2024 How Often Is Stress A Problem For You In Handling Such Things As: Your Health, Your Finances, Your Family And Social Relationships, Your Work? Never Or Rarely [email or web address] Information not available 03/28/2024 How Often Do You Get The Social And Emotional Support You Need: Usually Information no t available 04/20/2024 In The Past 7 Days, Did You Need Help From Others To Take Care Of Things Such As Laundry And Housekeep- Ing, Banking, Shopping, Using The Telephone, Food Preparation, Transportation, Or Taking Your Own Medications? No [email or web address] Information not available 03/28/2024 Do You Live Alone? No [email or web address] Information not available 03/28/2024 Does Your Home Have Any Fall Risks (un-level Floors, Unfastened Rugs, Poor Lighting, Etc)? No [email or web address] Information not available 03/28/2024 Do You Feel Safe At Home? Yes [email or web address] Information not available 03/28/2024 Do You Have A Medical Power Of Calender Inspector? Yes Information not available 04/20/2024 What Was The Date Of Your Most Recent Tobacco Screening? 04/24/2024 Information not available 2024 How Many Children Do You Have? 2 [email or web address] Information not available 09/27/2024 What Is Your Relationship Status? Information not available 03/28/2024 Do You Use Your Seat Belt Or Car Seat Routinely? Yes [email or web address] Information not available 03/28/2024 Are You Sexually Active? No Information not available 04/20/2024 Do You Have Smoke And Carbon Monoxide Detectors In Your Home? Yes Information not available 03/28/2024 Are You Passively Exposed To Smoke? No [email or web address] Information no t available 12/21/2022 Has Tobacco Cessation Counseling Been Provided? No [email or web address] Information not available 12/21/2023 Do You Have Difficulty Walking Or Climbing Stairs? No Information not available 04/20/2024 Sex: Unknown Functional Status Question Answer Note LastModified by Organizat ion Details LastModified Time Do you use any illicit or recreational drugs? No [email or web address] Information not available 12/21/2022 Do you or have you ever used any other forms of tobacco or nicotine? No [email or web address] Information not available 12/21/2023 What is your level of alcohol consumption? None Information not available 04/20/2024 Do you or have you ever used smokeless tobacco? Never used smokeless tobacco [email or web address] Information not available 12/21/2022 Do you have transportation difficulties? No [email or web address] Information not available 03/28/2024 Are you able to walk? [email or web address] Information not available 03/28/2024 Do you have difficulty doing errands alone? Yes cant drive at night Information not available 03/28/2024 Are you able to care for yourself? Yes [email or web address] Information n ot available 03/28/2024 Do you have difficulty dressing or bathing? No [email or web address] Information not available 03/28/2024 What is your exercise level? Moderate [email or web address] Information not available 09/27/2024 Mental Status Question Answer Note LastModified by Organizat ion Details LastModified Time Do you feel stressed (tense, restless, nervous, or anxious, or unable to sleep at night)? [id number] [email or web address] Information not available 12/21/2022 Do you have difficulty concentrating, remembering or making decisions? No [email or web address] Information no t available 03/28/2024 Family History [...] Heart disease [email or web address] Not available 2023 10:22:31 Notes:1 sister, 1 son, 1 erica fedeter, Medical History Condition Response Other Y Gout Y Vision or Eye Problems Y Arthritis Y Back Problems Y Depression Y COPD Y Clotting Disorder Y Difficulty Swallowing Y Reflux/GERD Y High Cholesterol Y Anesthesia Complications Y Pulmonary Embolism Y Headaches Y Hypertension Y Immunizations Vaccine Type Date Status Note Provider Nam e and Address Organization Details Recorded Time Influenza, split virus, quadrivalent, preservative 8 completed Steff [place] null, [place] [facility] [place] [facility] [place] 05/20/2023 07:44:01 Influenza, adjuvanted, quadrivalent, PF 1 completed Steff Rothamer null, [place] [facility] [place] [facility] [place] 05/20/2023 07:44:01 COVID-19, mRNA, LNP-S, PF, 100 mcg/0.5mL dose or 50 mcg/0.25mL dose 1 completed Steff [place] null, [place] [facility] [place] [facility] [place] 05/20/2023 07:44:01 COVID-19, mRNA, LNP-S, PF, 100 mcg/0.5mL dose or 50 mcg/0.25mL dose 1 completed Steff Rothamer null, [place] [facility] [place] [facility] [place] 05/20/2023 07:44:01 pneumococcal polysaccharide PPV23 0 completed Steff [place], [place] [facility] [place] [facility] [place] 05/20/2023 07:44:01 Influenza, high-dose, trivalent, PF 0 completed Steff Rothamer [place], [place] [facility] [place] [facility] [place] 05/20/2023 07:44:01 TST-PPD intradermal 4 completed Roxy Miramontes null, [place] [facility] [place] [facility] [place] 09/20/2023 10:17:13 Influenza, adjuvanted, trivalent, PF 4 completed Sp Bolanos MD [address] [facility], [place], [address], [place] [facility] - [facility] 06/12/2024 12:19:27 Pneumococcal conjugate PCV 13 8 completed Steff Avalos rajesh, [place] - [facility] - [facility] 01/07/2025 16:23:14 Past Encounters Encounter ID Performer Location Encounter Start Date Encounter Closed Date Diagnosis/Indication Diagnosis SNOMED-CT Code Diagnosis ICD10 Code Diagnosis Note [id number] Sp Bolanos MD [address] [place], [place] [address] 09/30/2022 16:32:37 09/30/2022 16:50:27 Chronic hiccup 725231606 R06.6 Short trial of Thorazine p.r.n. for his hiccups. [id number] Sp Bolanos MD [address] [place], [place] [address] 12/21/2022 15:55:27 12/21/2022 16:35:23 Dysfunction of eustachian tube 13797858 H69.92 Epidermal nevus 41217255 7 D23.9 [id number] Sp Bolanos MD [address] [place], [place] [address] 04/25/2023 13:11:31 04/25/2023 14:10:00 Chest pain 74958166 R07.9 to er for eval [id number] Sp Bolanos MD [address] [place], [place] [address] 05/23/2023 10:52:06 05/23/2023 11:38:25 Actinic keratosis 075309357 L57.0 Gastroesop hageal reflux disease without esophagitis 027237196 K21.9 [id number] Sp Bolanos MD [address] [place], [place] [address] 09/15/2023 11:11:25 09/15/2023 11:37:49 Chronic cough 63831960 R05.3 Coronary arteriosclerosis 98073968 I25.10 Continue close follow-up with Cardiology . Glaucoma 89259860 H40.9 One of the drops he is on does have chronic cough as a side effect but the patient reports his symptoms started long for this medication was prescribed and he has not had any worsening of his symptoms since starting. [id number] Nader Do M.D [facility] Pulmonary Medicine W - [address] [place] [address] [address] [place] [address] 11/24/2023 14:25:46 11/24/2023 15:46:13 Dyspnea 111446286 R06.00 Cough variant asthma 409 335010 J45.104 [id number] Sp Bolanos MD [facility] [address] [facility] [address] [place] [address] 12/05/2023 10:41:01 12/05/2023 11:13:37 Deep venous thrombosis of lower extremity 133566272 I82.409 Pain of le ft lower leg 2940708126 49920 M79.210 [id number] Sp Bolanos MD [facility] [address] [place] [address] 12/26/2023 08:59:20 12/26/2023 09:25:41 History of deep vein thrombosis 347726482 Z86.718 left lower leg continues Xarelto. Keep close follow-up with Hematology Pulmonary embolism 67805 003 I26.99 As above Cough 11492747 R05.9 [id number] Jordan Ruelas MD [facility] Oncology and Hematolog y [address] [facility] [address] [place] [address] 12/21/2023 14:56:14 12/21/2023 15:55:54 Deep venous thrombosis 369663566 I82.409 venous duplex of the left lower extremity performed on December 05, 2023. Findings of extensive deep venous thrombosis of the left lower extremity with DVT in the popliteal vein as well as the superficia l femoral vein. Pulmonary embolism 50080 003 I26.99 Initially presented to the emergency [...] anticoagul ation. History of deep vein thrombosis 477454251 Z86.718 Patient's mother had history of clotting episodes. Will follow up additional labs. Hoarse 79781335 R49.0 Patient with cough and mild change with voice and hoarseness . Patient being evaluated for possible COPD versus asthma by pulmonary Medicine. Denies any acid reflux. Denies postnasal drip. If continued would consider evaluation by ENT for direct laryngosco py. [id number] Nader Do M.D [facility] Pulmonary Medicine W - [address] [place] [address] [address] [place] [address] 01/25/2024 13:06:12 01/25/2024 13:53:07 Cough variant asthma 724002097 J45.991 Dyspnea 479696313 R06.00 Pulmonary embolism 51585 003 I26.99 [id number] Julita Owen PA-C [facility] Oncology and Hematolog y [address] [place] [address] 02/15/2024 13:20:29 02/15/2024 13:49:31 Pulmonary embolism 62915085 I26.99 Initially presented to the emergency room [...] Xarelto. Will follow-up Deep venou s thrombosis 882222587 I82.409 venous duplex of the left lower extremity performed on December 05, 2023. Findings of extensive deep venous thrombosis of the left lower extremity with DVT in the popliteal vein as well as the superficia l femoral vein. History of deep vein thrombosis 036016203 Z86.718 Patient's mother had history of clotting episodes. Will follow up additional labs. Hoarse 52684916 R49.0 Patient with cough and mild change with voice and hoarseness . Patient being evaluated for possible COPD versus asthma by pulmonary Medicine. Denies any acid reflux. Denies postnasal drip. If continued would consider evaluation by ENT for direct laryngosco py. [id number] Sp Bolanos MD [facility] [place] [address] [place] [address] 03/08/2024 11:20:31 03/08/2024 11:40:45 History of deep vein thrombosis 714552677 Z86.718 Chronic ob structive pulmonary disease 37096909 J44.9 Cough 13400637 R05.9 hold lisinopril again to see if this is an AIDA induced cough. Edema 908798373 R60.9 [id number] Sp Bolanos MD [facility] - [address] [place] [address] 03/28/2024 08:35:14 03/28/2024 10:02:14 Adult health examination 991662218 Z00.00 Patient has a living will.No evidence [...] will get later this month. Essential hypertension 93440425 I10 Pulmonary embolism 63870 003 I26.99 Cough 74836033 R05.9 I have advised him to reach out to his pulmonolog ist to see if the three-anthony h prednisone dosing is still the recommende d course of treatment. [id number] Julita Owen PA-C [facility]emat[facility] [address] [place] [address] 03/28/2024 10:11:03 03/28/2024 11:20:38 Pulmonary embolism 62228471 I26.99 Initially presented to the emergency room [...] Will follow up. Deep venou s thrombosis 954970140 I82.409 Venous duplex of the left lower extremity performed on December 05, 2023. Findings of extensive deep venous thrombosis of the left lower extremity with DVT in the popliteal vein as well as the superficia l femoral vein. Venous duplex on February 29, 2024 with no evidence of blood clot. History of deep vein thrombosis 356216076 Z86.718 Patient's mother had history of clotting episodes. Will follow up additional labs. Hoarse 57335878 R49.0 Patient with cough and mild change with voice and hoarseness . Patient being evaluated for possible COPD versus asthma by pulmonary Medicine. Denies any acid reflux. Denies postnasal drip. If continued would consider evaluation by ENT for direct laryngosco py. [id number] Sp Bolanos MD [facility] [address] [facility] [address] 04/19/2024 15:57:52 04/19/2024 16:28:46 Edema 353134909 R60.9 Unfortunat helen his edema is most likely due to the trauma from his large DVT in he is always going to have to deal with a little bit. Try some diuretics for a couple of weeks. Check BUN creatinine at the end of that. Continued wear of compressio n stockings and elevate feet. Tremor 84014494 R25.1 Cough 36649736 R05.9 [id number] Sp Bolanos MD [facility] [address] [facility] [place] [address] 05/03/2024 09:28:15 05/03/2024 10:03:59 Edema 895792778 R60.9 . Continue Lasix potassium combinatio n for now. Cough 62776720 R05.9 We will try to transition to albuterol. If no improvemen t in his cough symptoms and go back to [address]. Repeat pulmonary evaluation based on how he is doing. [id number] Nader Do M.D [facility] Pulmonary Medicine - [address] [place] [address] [address] [place] [address] 04/26/2024 13:06:18 04/26/2024 14:16:22 Cough variant asthma 333490028 J45.991 Pulmonary embolism 50423 003 I26.99 Dyspnea 979923721 R06.00 [id number] Sp Bolanos MD [facility] - [address] [place] [address] 06/12/2024 08:31:30 06/12/2024 09:05:01 Adult health examination 598645550 Z00.00 Patient has a living will.No evidence [...] he will get later this month. Nocturia 727034528 R35.1 History of deep vein thrombosis 760349607 Z86.718 Pain of to e of right foot 8220450364 05464 M79.674 Administra tion of influenza vaccine 61232170 Z23 Hyperglycemia 40293534 R 73.9 Hyperlipidemia 37498148 E78.5 Screening for malignant neoplasm of prostate 465416568 Z12.5 Osteoarthritis 189378046 M19.90 [id number] Sp Bolanos MD [facility] [address] [place] [address] 07/27/2024 09:01:45 07/27/2024 09:32:13 Edema 290465272 R60.9 . Continue Lasix potassium combinatio n for now. Pain in bi lateral legs 5135252176 6850232 M79.097 [id number] Jordan Ruelas MD [facility] [address] [facility] [address] [place] [address] 09/26/2024 10:24:30 09/26/2024 10:59:23 Pulmonary embolism 81528804 I26.99 Initially presented to the emergency room [...] Will follow up. Deep venou s thrombosis 843592445 I82.409 Venous duplex of the left lower extremity performed on December 05, 2023. Findings of extensive deep venous thrombosis of the left lower extremity with DVT in the popliteal vein as well as the superficia l femoral vein. Venous duplex on February 29, 2024 with no evidence of blood clot. Recurrent deep vein thrombosis 854009266 I82.509 Venous duplex of the bilateral lower [...] standard dosing. Long-term current use of anticoagulant 181121915 Z79.01 Patient with recurrent venous thromboemb olism. Would recommend indefinite anticoagul ation. Currently on Xarelto 20 mg p.o. daily. Deep venou s thrombosis of lower extremity 105047466 I82.752 [id number] Sp Bolanos MD [facility] [address] [facility] [place] [address] 10/25/2024 09:04:59 10/25/2024 09:39:27 History of deep vein thrombosis 046659617 Z86.718 Continue anticoagul ation. Almost likely be long-term. 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 Edema of l ower extremity 022295154 R60.0 . Continue Lasix potassium combinatio n for now. [id number] Sp Bolanos MD [facility] [address] [facility] [address] [place] [address] 11/12/2024 11:10:40 11/12/2024 11:42:45 Gouty arthritis of left foot 5946534156 164129 M10.9 any use meloxicam on a rare p.r.n. basis for acute gouty pain. Dermatophytosis 71967306 B35.9 Pain of hip region 01188 002 M25.552 [facility] 466359726 R55 [id number] Marck Diaz MD [facility] [address] [place] [address] 11/12/2024 11:47:51 11/12/2024 12:40:39 Pain of hip region 23737220 M25.552 Health Concerns Section Related Observation LastModified by Organization Detai ls LastModified Time None Recorded Concern Status LastModified by Organization Details LastModified Time None Recorded Advance Directives Directive Y: Payers Insurance Date Sequence Insurance Name Policy Number Policy Carbone Covered Member ID Carbone Member ID Guarantor Name 02/11/2024 1 [facility] (MEDICARE REPLACEMENT/A DVANTAGE - PPO) [id number] Oramel A Kumar [id number] Oramel A [place] 05/24/2023 1 [employer] (MEDICARE REPLACEMENT/A DVANTAGE - PPO) [id number] Oramel A [place] Jr [id number] Oramel A [place] 01/07/2025 1 [facility] (MEDICARE REPLACEMENT/A DVANTAGE - PPO) [id number] Oramel A Kumar [id number] Oramel A Kumar 05/24/2023 1 [employer] (MEDICARE REPLACEMENT/A DVANTAGE - PPO) [id number] Oramel A Kumar [id number] Oramel A Kumar Notes Date Note Type Note Provider Name [...] the swelling got worse. Sp Bolanos MD [address], [place], [address], [facility] [place] [facility] [place] 07/27/2024 11:50:46 09/26/2024 text/html 79 yo M [...] would recommend indefinite anticoagulation. Jordan Ruelas MD [address], [place], [address], [facility] [place] 09/26/2024 11:13:19 10/25/2024 text/html he is here [...] previously on famotidine. Sp Bolanos MD [address], [place], [address], [facility] [place] 10/25/2024 11:27:44 11/12/2024 text/html He is here for swelling pain in his foot. [place] to be warm to touch and tender. [...] No slurred speech. Sp Bolanos MD [address], [place], [address], [facility] - [facility] & [place] 11/12/2024 12:45:51
--- OUTSIDE RECORDS SUMMARY | 2025-01-10 14:16 | XMS_ITS | Data Portability ---
Author Organization ARIANNA myles MD, Main Office Address [address] [facility] [address] [place] [address] Care Team Providers Care Barley Steeper Name Role Phone SP HORTA Primary Care Provider [phone] Assessment No assessment recorded. Plan of Treatment Reminders Order Date Submit Date Provider Last Modified By Organization Details Last Modified Time Details Appointments None recorded. Lab None recorded. Referral None recorded. Procedures None recorded. Surgeries None recorded. Imaging None recorded. Medication Orders propranolol 20 mg tablet 2021 022 [id number], [address] [facility], [place], [address], 12:22:59 Patient TargetsNo targets recorded. Patient Instructions Encounter Date Encounter Id Patient Instructions Last Modified By Organization Details Last Modified Time 02/12/2022 [id number] [facility]REM[facility]ATION Not availabl e 02/12/2022 12:22:52 [...] Updated DateTime 2 175.26 cm 30.3 kg/m2 07527.4 4 g 82 /min 17 /min 137 mm[Hg] 84 mm[Hg] Seth Cordero MD [address] [facility], [facility] [address], [place], [address] 0ARIANNA MD 2 12:28:05 Social History Question [...] available 2021 12:12:37 Medical History Condition Response Glaucoma Y Arthritis Y Migraines Y Past Encounters Encounter ID Performer Location Encounter Start Date Encounter Closed Date Diagnosis/Indication Diagnosis SNOMED-CT Code Diagnosis ICD10 Code Diagnosis Note [id number] Seth Cordero MD Main Office [address], [facility] [address] [place] [address] 02/12/2022 11:38:42 02/12/2022 12:35:19 Essential tremor 391336897 G25.0 The patient is a 76-year-ol d white male. He has essential tremor. 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 He is accompanied by his for consultation [...] tremor. Seth Cordero MD [address], [facility] [address], [place], [address], [facility] - Seth Cordero MD 02/12/2022 12:30:44
--- OUTSIDE RECORDS SUMMARY | 2025-01-10 14:16 | XMS_ITS | Referral Summary ---
Author Organization [facility] Address [address] [place] [address] Care Team Providers Care Survey Research Manager Name Role Phone Sunny Bolanos MD Primary Care Provider [phone] Allergies No known active allergies Medications timolol [...] place to sleep or slept in a fdc (including now)? 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 Gender Identity Not on file Sexual Orientation [...] on file Medical Devices Implanted Type Area Trade Mark Examiner Device Identifier Shelf Expiration Date Model / Serial / Lot Cement Bone Smplx 6194-1-001 - [id number] Implanted:Qt y: 1 on 09/20/2022 at [facility] IMPLANTS Right: Knee DALILA:[employer] [id number] 01/22/2024 6194-1-00 1 / / [id number] D Cement Bone Smplx Hv 6194-1-001 - [id number] Implanted:Qt y: 1 on 09/20/2022 at [facility] IMPLANTS Right: Knee DALILA:[employer] [id number] 02/22/2024 6194-1-00 1 / / [id number] D Psn Art Surf Mc 14 Ve8-11gh Rt 90-6515-658- 14 - [id number] Implanted:Qt y: 1 on 09/20/2022 at [facility] TOTAL JOINT CONSTRUCT Right: Knee MAYDA:MAYDA [id number] 01/26/2026 42-5221-0 09-14 / / [id number] Tib Cemented Stem 5d Sz G R 04-6881-521- 02 - [id number] Implanted:Qt y: 1 on 09/20/2022 at [facility] TOTAL [employer] Right: Knee MAYDA:MAYDA [id number] 05/24/2032 42-5320-0 79-02 / / [id number] Imp Knee Fem Psn Cr Cmt Sz11 R 13-9494-784- 02 - [id number] Implanted:Qt y: 1 on 09/20/2022 at [facility] TOTAL JOINT CONSTRUCT Right: Knee MAYDA:MAYDA [id number] 05/15/2032 42-5026-0 70-02 / / [id number] Insurance [id number] ARIANNA FIGUEROA [id number] [facility] MEDICARE ADVANTAGE Advance Directives For more information, please contact: [phone] Documents on File Type Date Recorded Patient Photographer Model Expl anation Advance Directives and Livin g Will 09/20/2022 10:38 AM * Full Code (Latest Code Status on File) Date Activated Date Inactivated Comments 09/20/2022 5:07 PM 09/21/2022 5:08 PM * Full Code Date Activated Date Inactivated Comments 09/20/2022 11:01 AM 09/20/2022 5:06 PM Care Teams Survey Research Manager Relationship Specialty Start Date End Date Sunny Bolanos MD [address] [address] PCP - General Family Medicine 09/14/22
--- OUTSIDE RECORDS SUMMARY | 2025-01-10 14:16 | XMS_ITS | Encounter Summary ---
Author Organization [employer] Address [address] [place] [address] Care Team Providers Care Esol Teacher Name Role Phone Sunny Bolanos MD Primary Care Provider [phone] Encounter Details Date Type Department Care Team (Late st Contact Info) Description 10/13/2022 Outside Orders [facility] Central Scheduling [address] [place] [address] Bernadine Polk PA-C [facility] [place] [address] Status post right knee replacement (Primary Dx) [...] place to sleep or slept in a [place] health [place] facility (including now)? 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
--- OUTSIDE RECORDS SUMMARY | 2025-01-10 14:16 | XMS_ITS | Clinical Summary ---
Author Organization [facility] Address [address] [place] [address] Care Team Providers Care Wood Stock Blank Handler Name Role Phone Sunny Bolanos MD Primary Care Provider [phone] Allergies Active Allergy Reactions Criticality Noted Date [...] (11/23/2022): Added automatically from request for surgery [id number] Lumbar spondylosis 12/14/2018 Status post total replacement [...] Description 12/08/2024 9:35 PM EDT Ancillary Procedure [facility] [address] [place] [address] 11/29/2024 8:15 AM EDT Office Visit [facility] [address] [place] [address] Nora Escalante MD Primary open-angle glaucoma, left eye, severe stage (Primary Dx); Primary open angle glaucoma of right eye, mild stage 11/29/2024 Travel from Last 3 Months Immunizations Immunization Administration Dates Next Due Influenza Vaccine, Quadrivalent, Adjuvanted 06/25 Influenza, high-dose, quadrivalent 04/24/2020 Influenza, injectable, quadrivalent 05/02/2018 Moderna COVID-19 Vaccine (Doctor Of Dental Surgery) 12+ years 09/2020,08/28/2020 Pneumococcal Polysaccharide PPV23 09/01/2019 [...] Description 06/06/2025 11:00 AM EST Office Visit [facility] [address] [place] [address] Nora Escalante MD [address] [address] Health Maintenance Due Date Last Done Comments [facility]-Depression Screening 1943 [facility]-Medicare Annual Wellness (AWV) 1943 [facility]-/Child/Adol SDOH Screenings 1943 [facility]- SDOH Screenings 1961 [facility]-Adult SDOH Screenings 1961 [facility]-DTaP,Tdap,and Td Vaccines (1 - Tdap) 1962 [facility]-Zoster Vaccines (1 of 2) 1993 [facility]-RSV Vaccine: 60+ Years or (1 - 1-dose 75+ series) 2018 [facility]-Pneumococcal Vaccine: 50+ Years (2 of 2 - PCV) 09/01/2020 09/01/2019 [facility]-WTMBQ-20 Vaccine (3 - season) 2024 09/24/2020, 08/28/2020 [...] this topic Medical Devices Implanted Type Area Greenskeeper Supervisor Device Identifier Shelf Expiration Date Model / Serial / Lot Shell Modular Redapt 56mm - [id number] Implanted:Qty: 1 on 01/31/2023 by Flako Hawkins MD at [facility] Right: Hip [employer]-[id number] 06/07/2032 [id number] / / [id number] Chg Lnr 20 Deg 56 - [id number] Implanted:Qty: 1 on 01/31/2023 by Flako Hawkins MD at [facility] Right: Hip [employer]-[id number] 11/14/2032 [id number] / / [id number] Chg Screw Ref Spher Head 20mm - [id number] Implanted:Qty: 1 on 01/31/2023 by Flako Hawkins MD at [facility] Right: Hip [employer]-[id number] 07/15/2032 [id number] / / [id number] Chg Screw Ref Spher Head 40mm - [id number] Implanted:Qty: 1 on 01/31/2023 by Flako Hawkins MD at [facility] Right: Hip [employer]-[id number] 05/30/2032 [id number] / / [id number] Polarstem Cementless Tiha 7 - [id number] Implanted:Qty: 1 on 01/31/2023 by Flako Hawkins MD at [facility] Right: Hip [employer]-[id number] 12/02/2028 [id number] / / [id number] Chg Head Oxin Mod Fem 40mm - [id number] Implanted:Qty: 1 on 01/31/2023 by Flako Hawkins MD at [facility] Right: Hip [employer]-[id number] 10/15/2032 [id number] / / [id number] Chg Sleeve Tit Mod Neck +0 - [id number] Implanted:Qty: 1 on 01/31/2023 by Flako Hawkins MD at [facility] Right: Hip [employer]-[id number] 07/27/2032 [id number] / / [id number] Procedures Procedure Name Priority Date/Time Associated Diagnosis [...] Resul t from Last 3 Months Insurance [facility] MEDIC[facility] Advance Directives * Full Code (Latest Code Status on File) Date Activated Date Inactivated Comments 01/31/2023 8:26 AM 01/31/2023 5:53 PM Question Answer Comments Patient has decision-making capacity? Yes Care Teams Wood Stock Blank Handler Relationship Specialty Start Date End Date Sunny Bolanos MD [address] [place] [address] [place] [address] PCP - General 11/12/21
--- OUTSIDE RECORDS SUMMARY | 2025-01-10 14:18 | XMS_ITS | Continuity of Care Document ---
Author Organization [facility] Address [address] [place] [address] Care Team Providers Care Damage Appraiser Name Role Phone SP BOLANOS Primary Care [...] Imaging XR, hip, unilatera l [email or web address] (Centralized Scheduling), [address], [place], [address], 11/26/2024 13:56:45 electroca rdiogram [email or web address] [facility] [place], [address], [place], [address], 11/12/2024 11:50:56 holter monitor [address] (Centralized Scheduling), [address], [place], [address], 12/11/2024 09:56:47 Medication Orders ketoconaz ole 2 % topical cream 2024 025 [id number], [address] [facility], [place], [address], 11/12/2024 12:45:34 Patient TargetsNo targets recorded. Patient InstructionsNo instructions recorded. Reason for Referral None Reported. Results Created Date Observation Date Name Description Value Unit Range Abnormal Flag Note LastModifiedBy Organization Detail LastModifiedTime 11/13/19 25 11/13/2024 elect rocar diogr am No observ ation record ed. [facility] [address], [place], [address], 11/13/2024 15:49:09 11/13/19 25 11/12/2024 elect rocar diogr am No observ ation record ed. [email or web address] Not Available 11/12 13:10:59 11/13/19 25 11/12/2024 XR, hip, unila teral , 2 or 3 view No observ ation record ed. [email or web address] [facility] - [facility] [address] , [place], [address], 11/13/2024 15:43:52 11/30/19 25 11/29/2024 venou s duple x US lwr lt ext [facility] [address] [place] [address] Phone: Fax: Name: NEYMAR NAVARRO Exam Date: 11/30/19 : 1944 Age 79 years Gender : M Access ion: [id number] Physic melany: JORDAN RUELAS ty: [facility] Katiei ty HSV: Outpat ient Exam: VENOUS [...] Thank you for referr NEYMAR Putnam to [facility]. Legall y authen ticate d by EMIGDIO Flaherty 11-29 10:22: 00 CC'ed Logic: Orderi ng Provid er: JESSENIA DYER Attend ing Provid er: JESSENIA DYER [facility] Provid er: JESSENIA paige[address] - [facility] [address] [facility], [place], [address], 11/30/2024 14:56:32 12/11/19 25 12/05/2024 HOLTER MONITO R NEYMAR NAVARRO [facility] 4 2 DATE OF SERVIC E: 2024 PROVID ER: Rashid Hernandez MD, [facility] DATE OF STUDY: 2024 to 2024. INDICA [...] 2024 17:17: 05 DT: 2024 17:59: 17 /[id number] Electr onical ly Signed By: DAMIEN Correa 12-10 08:42: 19 CC'ed Logic: Orderi ng Provid er: DAMIEN CROUCH [email or web address] [facility] [address] , [place], [address], 12/11/2024 16:16:55 Result Notes None recorded. Procedures Surgical History Date Name Laterality Status Provider Name and Address Organization Details Recorded Time 03/28/20 24 Venipuncture completed Julita Owen PA-C [address] , [place], [address], [place] [facility] [place] 03/15/2024 12:34:55 02/15/20 24 Venipuncture completed Ann Flaherty [place] [facility] [place] 02/15/2024 13:40:07 02/01/20 23 repair of hip completed Steff Rothamer [place] [facility] [place] 03/12/2024 10:23:01 09/20/19 23 Joint Replacement completed Steff Rothamer [place] [facility] [place] 04/20/2024 09:24:51 01/29/20 21 Hernia Repair completed Steff [place]amer [place] [facility] [place] 05/20/2023 07:50:46 10/14/19 18 Hip Surgery completed Steff [place]amer [place] 03/12/2024 10:24:59 02/23/20 17 procedure on neck completed Steff [place]amer [place] [facility] [place] 05/20/2023 07:50:07 07/25/19 17 Cataract Surgery completed Steff [place]amer [place] [facility] [place] 01/07/2025 16:23:56 Knee Surgery completed Steff [place]amer [place] [facility] [place] 05/20/2023 07:48:48 Eye Surgery completed Steff [place]amer [place] [facility] [place] 05/20/2023 07:49:07 Colonoscopy completed Steff [place]amer [place] [facility] [place] 05/20/2023 07:49:20 tonsilectomy/valerie noids completed Steff Rothamer [place] [facility] [place] 01/07/2025 16:27:01 Back Surgery completed Steff Rothamer [place] [facility] [place] 01/07/2025 16:27:18 Imaging Results None recorded. Procedure Notes None recorded. Medical Equipment None Reported. Allergies Allergen ID Allergen Name Allergen Category Reaction Reaction Severity Criticality Documentation Date Start Date Code Code System Note Provider Name and Address Organization Details Recorded Time 965077 brinzolam markus medicatio n other Not available low 03/12/2024 58752 1 RxNorm passe d out Steff Rothamer null, [place] [facility] [place] 4 10:20:55 864506 lubiprost one medicatio n dizziness Not available high 03/12/2024 36915 3 RxNorm Steff Rothamer null, [place] [facility] [place] 4 10:21:07 192460 timolol medicatio n other Not available low 03/12/2024 12103 RxNorm pass ed out from [facility] CHRISTINA, not Timol ol alone Steff Rothamer null, [place] [facility] [place] 4 10:21:34 Medications Name Sig Start Date Stop Date Status Note LastModified by Organization Details LastModified Time latanoprost 0.005 % eye drops 04/03 /2025 completed Not Available Not Available Not Available [...] Updated DateTime 5 175.26 cm 32.6 kg/m2 638687. 91 g 98.4 [degF] 94 % 94 % 70 /min 120 mm[Hg] 88 mm[Hg] Roxy CORREIA [facility] [place] 5 11:20:30 Social History Question Answer Notes LastModified by Organizat ion Details LastModified Time Tobacco Smoking Status Never Smoker Roxy Kulwinder mena, ARIANNA CORREIA [facility] [place] 09/30/2022 16:37:36 Do You Have An Advance Directive? Yes [email or web address] Information not available 12/21/2022 Are You Blind Or Do You Have Difficulty Seeing? No Information not available 12/21/2022 Is Blood Transfusion Acceptable In An Emergency? No Information not available 04/20/2024 What Is Your Level Of Caffeine Consumption? Occasional [email or web address] Information not available 12/21/2023 Are You Deaf Or Do You Have Serious Difficulty Hearing? No [email or web address] Information not available 03/28/2024 What Type Of Diet Are You Following? REGULAR [email or web address] Information not available 03/28/2024 How Many Days Of Moderate To Strenuous Exercise, Like A Brisk Walk, Did You Do In The Last 7 Days? 6 [email or web address] Information not available 09/27/2024 Have There Been Any Changes To Your Family Or Social Situation? No Information no t available 03/28/2024 In General, Would You Say Your Health Is Fair [email or web address] Information not available 09/27/2024 How Would You [...] Bread, 1 Cup Of Whole-grain Or High-fiber Zjecj-yh-ebo Cereal, 1 2 Cup Of Cooked Cereal Such As Oatmeal, Or 1 2 Cup Of Cooked Brown Rice Or Whole Wheat Pasta.) 1-2 Servings Per Day Information not available 04/20/2024 In The Past 7 Days, How Many Servings Of Fried Or High-fat Foods Did You Typically Eat Each Day? (Examples Include Fried Chicken, Fried Fish, [place], [place], Potato Chips, [place] Chips, Doughnuts, Creamy Salad Dressings, And Foods Made With Whole Milk, Cream, Cheese, Or Mayonnaise.) 0 Servings Per Day Information not available 04/20/2024 In The Past 7 Days, How Many Sugar-sweetened (not Diet) Beverages Did You Typically Consume Each Day 0 Drinks Per Day Information not available 04/20/2024 Each Night, How Many Hours Of Sleep Do You Usually Get? 7-8 Hours [email or web address] Information not available 03/28/2024 Do You Snore Or Has Anyone Told You That You Snore? Yes [email or web address] Information not available 03/28/2024 In The Past 7 Days, How Often Have You Douglas Sleepy During The Daytime? Always Information not available 04/20/2024 Do You Have Chronic Pain? No [email or web address] Information not available 03/28/2024 In The Past 7 Days, How Would You Rate Your Pain? Mild Pain(1-3) Information not available 03/28/2024 Are You In A Pain Management Program? No [email or web address] Information not available 03/28/2024 Do You Take Opioids For Your Pain? No [email or web address] Information not available 03/28/2024 How Often Is [...] Transportation, Or Taking Your Own Medications? No [email or web address] Information not available 03/28/2024 Do You Live Alone? No [email or web address] Information not available 03/28/2024 Does Your Home Have Any Fall Risks (un-level Floors, Unfastened Rugs, Poor Lighting, Etc)? No [email or web address] Information not available 03/28/2024 Do You Feel Safe At Home? Yes [email or web address] Information not available 03/28/2024 Do You Have A Medical Power Of Newsstand Vendor? Yes Information not available 04/20/2024 What Was The Date Of Your Most Recent Tobacco Screening? 04/24/2024 Information not available 2024 How Many Children Do You Have? 2 [email or web address] Information not available 09/27/2024 What Is Your Relationship Status? [email or web address] Information not available 03/28/2024 Do You Use Your Seat Belt Or Car Seat Routinely? Yes [email or web address] Information not available 03/28/2024 Are You Sexually Active? No Information not available 04/20/2024 Do You Have Smoke And Carbon Monoxide Detectors In Your Home? Yes [email or web address] Information not available 03/28/2024 Are You Passively Exposed To Smoke? No Information no t available 12/21/2022 Has Tobacco Cessation Counseling Been Provided? No [email or web address] Information not available 12/21/2023 Do You Have Difficulty Walking Or Climbing Stairs? No Information not available 04/20/2024 Sex: Unknown Functional Status Question Answer Note LastModified by Organizat ion Details LastModified Time Do you use any illicit or recreational drugs? No [email or web address] Information not available 12/21/2022 Do you or have you ever used any other forms of tobacco or nicotine? No [email or web address] Information not available 12/21/2023 What is your level of alcohol consumption? None Information not available 04/20/2024 Do you or have you ever used smokeless tobacco? Never used smokeless tobacco [email or web address] Information not available 12/21/2022 Do you have transportation difficulties? No [email or web address] Information not available 03/28/2024 Are you able to walk? YESWOREST Information not available 03/28/2024 Do you have difficulty doing errands alone? Yes cant drive at night [email or web address] Information not available 03/28/2024 Are you able to care for yourself? Yes [email or web address] Information n ot available 03/28/2024 Do you have difficulty dressing or bathing? No Information not available 03/28/2024 What is your exercise level? Moderate [email or web address] Information not available 09/27/2024 Mental Status Question Answer Note LastModified by Organizat ion Details LastModified Time Do you feel stressed (tense, restless, nervous, or anxious, or unable to sleep at night)? [id number] [email or web address] Information not available 12/21/2022 Do you have difficulty concentrating, remembering or making decisions? No [email or web address] Information no t available 03/28/2024 Family History [...] 10:22:31 Notes:1 sister, 1 son, 1 erica lebron, Medical History Condition Response Other Y Gout [...] Steff [place] null, [place] [facility] [place] 05/20/2023 07:44:01 Influenza, adjuvanted, quadrivalent, PF 1 completed Steff [place] [place] 05/20/2023 07:44:01 COVID-19, mRNA, LNP-S, PF, 100 mcg/0.5mL dose or 50 mcg/0.25mL dose 1 completed Steff [place] [facility] [place] 05/20/2023 07:44:01 COVID-19, mRNA, LNP-S, PF, 100 mcg/0.5mL dose or 50 mcg/0.25mL dose 1 completed Steff [place] [facility] [place] 05/20/2023 07:44:01 pneumococcal polysaccharide PPV23 0 completed Steff [place] 05/20/2023 07:44:01 Influenza, high-dose, trivalent, PF 0 completed Steff [place] [facility] [place] 05/20/2023 07:44:01 TST-PPD intradermal 4 completed Roxy mena, ARIANNA - [facility] [place] [facility] [place] 09/20/2023 10:17:13 Influenza, adjuvanted, trivalent, PF 4 completed Sp Bolanos MD [address] [facility], [place], [address], [place] - [facility] [place] 06/12/2024 12:19:27 Pneumococcal conjugate PCV 13 8 completed Steff Avalos null, ARIAN[place] - [facility] [place] 01/07/2025 16:23:14 Past Encounters Encounter ID Performer Location Encounter Start Date Encounter Closed Date Diagnosis/Indication Diagnosis SNOMED-CT Code Diagnosis ICD10 Code Diagnosis Note [id number] Sp Bolanos MD [facility] [place] [address] [facility] [address] [place] [address] 10/25/2024 09:04:59 10/25/2024 09:39:27 History of deep vein thrombosis 823143805 Z86.718 Continue anticoagul ation. Almost likely be long-term. 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 Edema of l ower extremity 324643595 R60.0 . Continue Lasix potassium combinatio n for now. [id number] Sp Bolanos MD [facility] [address] [facility] [address] [place] [address] 11/12/2024 11:10:40 11/12/2024 11:42:45 Gouty arthritis of left foot 4372947513 117265 M10.9 any use meloxicam on a rare p.r.n. basis for acute gouty pain. Dermatophytosis 47731366 B35.9 Pain of hip region 19830 002 M25.552 Syncope 052080104 R55 [id number] Marck Diaz MD [facility] [address] [facility] [address] [place] [address] 11/12/2024 11:47:51 11/12/2024 12:40:39 Pain of hip region 83994127 M25.552 Health Concerns Section Related Observation LastModified by Organization Detai ls LastModified Time None Recorded Concern Status LastModified by Organization Details LastModified Time None Recorded Payers Encounter Date Sequence Insurance Name Policy Number Policy Carbone Covered Member ID Carbone Member ID Guarantor Name 11/12/2024 1 [facility] (MEDICARE REPLACEMENT/A DVANTAGE - PPO) [id number] [place] [id number] [place]amel [place] Notes Date Note Type Note Provider Name and Address Organization Details Recorded Time 11/12/2024 text/html He is here for swelling pain in his foot. Douglas to be warm to touch and tender. [...] breath. No slurred speech. Sp Bolanos MD [address], [place], [address], [facility] [place] 11/12/2024 12:45:51
--- OUTSIDE RECORDS SUMMARY | 2025-01-10 14:18 | XMS_ITS | Data Portability ---
Author Organization [facility] CLOSED Address [address] [place] [address] Care Team Providers Care Obstetrics Nurse Practitioner Name Role Phone MARCOS DUVALL Primary Care Provider [phone] SP HORTA Primary Care Provider SHEILA GOULD Packaging Supervisor Assessment Encounter Date Assessment Date Assessment LastModified by Organization Details LastModified Time 11/15/2023 11/15/2023 Glenn Heath Jr. is an 78-year-old male with history of lumbar back pain presenting to the clinic today for a follow-up. Patient underwent a bilateral L3-L5 RFA with Dr. Hardin on 10/06/2023 and returns to clinic today reporting approximately 60% reduction in symptoms. He still endorses lower back pain with activity. Patient notes that pain is worsened with bending, and lifting. He reports that if he sits for a prolonged period of time and then gets up, pain is also more pronounced. Patient reports that he has completed physical therapy with traction in the past which was beneficial, but this was many years ago. We discussed sending a new referral in for PT with traction. Patient would like referral sent in [place], [place], or [place] if possible. Imaging demonstrates 20% loss of vertebral height from L1 fracture. There are degenerative changes of the lumbar spine with facet arthropathy and spondylosis diffusely. Lumbar MRI is from 11/24/2021. Discussed with patient that I would like to obtain new imaging of his lower back to identify any possible changes. Patient will follow-up in clinic in 2 months for further evaluation. Patient is satisfied with this plan of care. Of note, patient had a dry cough during most of the exam today, and reported that he is scheduled to see a Fraud Prevention Analyst this week for assessment. kkolles Not available 11/15/2023 11:37:38 01/17/2024 01/17/2024 Glenn Heath i s an 78-year-old male presenting to the clinic today for follow-up in regards to lumbar back pain. Patient went to the hospital on 12/05/23 due to swelling and pain in his left leg and was found to have an extensive left lower extremity deep vein thrombosis. Patient was in the hospital for 3 days, and is now on Xarelto long-term. He has not been able to go to PT due to his recent health issues. In terms of back pain, patient notes that it is most prominent when bending over the sink to brush his teeth. On exam, patient has anterior column pain with forward flexion. I reviewed with patient his lumbar MRI which demonstrates degenerative changes with facet arthropathy. There are type II Modic changes from L2-L3 through L5-S1. There are disc protrusions and areas of disc osteophyte complexes contributing to moderate left foraminal narrowing at L3-L4, moderate right foraminal narrowing at L4-L5, and bilateral foraminal narrowing at L5-S1. Presentation is consistent with lumbar spondylosis and vertebrogenic low back pain. Patient has already underwent a lumbar RFA on 10/06/23 to address the facetogenic component of his back pain. My recommendation if patient continues to have symptoms, is for patient to consider Intracept procedure once he is feeling better, and has been on his blood thinner for 6 months or more. I did provide information on Intracept to the patient and his . Patient is welcome to follow-up as needed for any new or worsening pain. [email or web address] Not available 01/17/2024 11:19:32 Plan of Treatment Reminders Order Date Submit Date Provider Last Modified By Organization Details Last Modified Time Details Appointments RECHECK 2024 01:45P Dea FRANCE MD Not available Not available Not available Lab urinalysi s panel, auto [facility]24 [facility] [place] [facility], [address], [address], [place], [address], 08/12/2024 10:58:23 urinalysi s panel, auto 2023 024 [facility] [place] [facility], [address], [address], [place], [address], 02/02/2024 11:44:05 Referral physical therapist referral - please call patient to set up time for eval 2023 024 deonte In [facility] ([facility]), [address] , [place], [address], 11/23/2023 08:20:53 Procedures None recorded. Surgeries None recorded. Imaging MRI, lumbar spine, w/o contrast 2023 024 JATIN [facility] Radiology [facility], [address] [place], [address], 12/09/2023 12:09:30 Medication Orders None recorded. Patient TargetsNo targets recorded. Patient Instructions Encounter Date Encounter Id Patient Instructions Last Modified By Organization Details Last Modified Time 11/15/2023 [id number] WRAP-UP Thank navi purvis for visiting [facility] at [facility] today. At today's visit the following were addressed: - PT with traction - Lumbar MRI - 2 month f/u Thank you for visiting the [facility]. - Because of the high volume of calls we receive and the high demand for our clinical services, please allow for 24 hours for us to respond to patient calls. We are generally unable to discuss patient care advice over the telephone. If you are experiencing a medication side effect or complication, you can call and let us know, but we will typically not make a medication substitution or globe changer the telephone. - Acute exacerbations of pain and flare ups are quite common in chronic pain states and need to be dealt with as part of the action installer management plan. Please make an appointment with us if you wish to discuss a matter in any detail. Should you still need to call, please do so at . For additional information and services provided by our clinic you may visit our Pain Management Clinic website at: [email or web address] Thank you for choosing [facility]. It was a pleasure to see you in clinic today. Please contact us with any questions or concerns at . kkolles Not available 11/15/2023 11:40:16 01/17/2024 [id number] WRAP-UP Thank you for visiting [facility] at [facility] today. At today's visit the following were addressed: - Intracept information provided - PRN Thank you for visiting the [facility]. - Because of the high volume of calls we receive and the high demand for our clinical services, please allow for 24 hours for us to respond to patient calls. We are generally unable to discuss patient care advice over the telephone. If you are experiencing a medication side effect or complication, you can call and let us know, but we will typically not make a medication substitution or globe changer the telephone. - Acute exacerbations of pain and flare ups are quite common in chronic pain states and need to be dealt with as part of the residential management plan. Please make an appointment with us if you wish to discuss a matter in any detail. Should you still need to call, please do so at . For additional information and services provided by our clinic you may visit our Pain Management Clinic website at: [email or web address] Thank you for choosing [facility]. It was a pleasure to see you in clinic today. Please contact us with any questions or concerns at . [email or web address] Not available 01/17/2024 10:54:34 01/30/2024 [id number] learning about healthy weight [email or web address] Not available 02/02/2024 11:44:03 08/06/2024 [id number] learning about healthy weight [email or web address] Not available 08/12/2024 10:58:23 Reason for Referral Physical Therapist Referral for Lumbar spondylosis Lower back pain traction and lumbar spine please call patient to set up time for eval Referring Physician: Courtney Madison, Pain Management, Encounter Date: 11/15/2023 Results Created Date Observation Date Name Description Value Unit Range Abnormal Flag Note LastModifiedBy Organization Detail LastModifiedTime 07/08/20 24 01/30/2024 urina lysis panel , auto Unknown Analyte Clean Catch Not Available Count includes the [facility] [place] [facility] With [facility] [address], [place], [address], 01/30/2024 16:33:04 01/30/20 24 01/30/2024 urina lysis panel , auto Unknown Analyte Yellow Not Available [facility] With [facility] [address], [place], [address], 01/30/2024 16:33:04 01/30/20 24 01/30/2024 urina lysis panel , auto Unknown Analyte Clear Not Available [facility] [address], [place], [address], 01/30/2024 16:33:04 01/30/20 24 01/30/2024 urina lysis panel , auto Unknown Analyte 1.020 Not Available [facility] [address], [place], [address], 01/30/2024 16:33:04 01/30/20 24 01/30/2024 urina lysis panel , auto Unknown Analyte 1.003- 1.035 Not Available [facility] With [facility] [address], [place], [address], 01/30/2024 16:33:04 01/30/20 24 01/30/2024 urina lysis panel , auto Unknown Analyte 5.0 Not Available [facility] [address], [place], [address], 01/30/2024 16:33:04 01/30/20 24 01/30/2024 urina lysis panel , auto Unknown Analyte 5.0-8. 0 Not Available Count includes the [facility] [place] [facility] [address], [place], [address], 01/30/2024 16:33:04 01/30/20 24 01/30/2024 urina lysis panel , auto Unknown Analyte Negati ve Not Available Count includes the [facility] [place] [facility] With [facility] [address], [place], [address], 01/30/2024 16:33:04 01/30/20 24 01/30/2024 urina lysis panel , auto Unknown Analyte Negati ve Not Available Count includes the [facility] [place] [facility] [address], [place], [address], 01/30/2024 16:33:04 01/30/20 24 01/30/2024 urina lysis panel , auto Unknown Analyte Negati ve Not Available Count includes the [facility] [place] [facility] [address], [place], [address], 01/30/2024 16:33:04 01/30/20 24 01/30/2024 urina lysis panel , auto Unknown Analyte Negati ve Not Available Count includes the [facility] [place] [facility] [address], [place], [address], 01/30/2024 16:33:04 01/30/20 24 01/30/2024 urina lysis panel , auto Unknown Analyte Negati ve Not Available Count includes the [facility] [place] [facility] [address], [place], [address], 01/30/2024 16:33:04 01/30/20 24 01/30/2024 urina lysis panel , auto Unknown Analyte Negati ve Not Available [facility] [place] [facility] [address], [place], [address], 01/30/2024 16:33:04 01/30/20 24 01/30/2024 urina lysis panel , auto Unknown Analyte Normal Not Available [facility] [address], [place], [address], 01/30/2024 16:33:04 01/30/20 24 01/30/2024 urina lysis panel , auto Unknown Analyte Normal Not Available [facility] [address], [place], [address], 01/30/2024 16:33:04 01/30/20 24 01/30/2024 urina lysis panel , auto Unknown Analyte Negati ve Not Available [facility] With [facility] [address], [place], [address], 01/30/2024 16:33:04 01/30/20 24 01/30/2024 urina lysis panel , auto Unknown Analyte Negati ve Not Available [facility] [address], [place], [address], 01/30/2024 16:33:04 01/30/20 24 01/30/2024 urina lysis panel , auto Unknown Analyte Normal Not Available [facility] [address], [place], [address], 01/30/2024 16:33:04 01/30/20 24 01/30/2024 urina lysis panel , auto Unknown Analyte Normal 1 mg/dl Not Available Count includes the [facility] [place] [facility] [address], [place], [address], 01/30/2024 16:33:04 01/30/20 24 01/30/2024 urina lysis panel , auto Unknown Analyte Negati ve Not Available Count includes the [facility] [place] [facility] [address], [place], [address], 01/30/2024 16:33:04 01/30/20 24 01/30/2024 urina lysis panel , auto Unknown Analyte Negati ve Not Available [facility] [place] [facility] [address], [place], [address], 01/30/2024 16:33:04 01/30/20 24 01/30/2024 urina lysis panel , auto Unknown Analyte Negati ve Not Available [facility] [place] [facility] [address], [place], [address], 01/30/2024 16:33:04 01/30/20 24 01/30/2024 urina lysis panel , auto Unknown Analyte Negati ve Not Available [facility] [place] [facility] [address], [place], [address], 01/30/2024 16:33:04 08/06/19 25 08/06/2024 urina lysis panel , auto Unknown Analyte Clean Catch Not Available Count includes the [facility] [place] [facility] [address], [place], [address], 08/06/2024 18:06:33 08/06/19 25 08/06/2024 urina lysis panel , auto Unknown Analyte Yellow Not Available [facility] [place] [facility] [address], [place], [address], 08/06/2024 18:06:33 08/06/19 25 08/06/2024 urina lysis panel , auto Unknown Analyte Clear Not Available [facility] [place] [facility] [address], [place], [address], 08/06/2024 18:06:33 08/06/19 25 08/06/2024 urina lysis panel , auto Unknown Analyte 1.020 Not Available [facility] [place] [facility] [address], [place], [address], 08/06/2024 18:06:33 08/06/19 25 08/06/2024 urina lysis panel , auto Unknown Analyte 1.003- 1.035 Not Available [facility] [place] [facility] [address], [place], [address], 08/06/2024 18:06:33 08/06/19 25 08/06/2024 urina lysis panel , auto Unknown Analyte 5.0 Not Available [facility] With [facility] [address], [place], [address], 08/06/2024 18:06:33 08/06/19 25 08/06/2024 urina lysis panel , auto Unknown Analyte 5.0-8. 0 Not Available Count includes the [facility] [place] [facility] [address], [place], [address], 08/06/2024 18:06:33 08/06/19 25 08/06/2024 urina lysis panel , auto Unknown Analyte Negati ve Not Available Count includes the [facility] [place] [facility] [address], [place], [address], 08/06/2024 18:06:33 08/06/19 25 08/06/2024 urina lysis panel , auto Unknown Analyte Negati ve Not Available Count includes the [facility] [place] [facility] [address], [place], [address], 08/06/2024 18:06:33 08/06/19 25 08/06/2024 urina lysis panel , auto Unknown Analyte Negati ve Not Available Count includes the [facility] [place] [facility] [address], [place], [address], 08/06/2024 18:06:33 08/06/19 25 08/06/2024 urina lysis panel , auto Unknown Analyte Negati ve Not Available Count includes the [facility] [place] [facility] [address], [place], [address], 08/06/2024 18:06:33 08/06/19 25 08/06/2024 urina lysis panel , auto Unknown Analyte Negati ve Not Available Count includes the [facility] [place] [facility] [address], [place], [address], 08/06/2024 18:06:33 08/06/19 25 08/06/2024 urina lysis panel , auto Unknown Analyte Negati ve Not Available Count includes the [facility] [place] [facility] [address], [place], [address], 08/06/2024 18:06:33 08/06/19 25 08/06/2024 urina lysis panel , auto Unknown Analyte Normal Not Available [facility] [place] [facility] [address], [place], [address], 08/06/2024 18:06:33 08/06/19 25 08/06/2024 urina lysis panel , auto Unknown Analyte Normal Not Available [facility] With [facility] [address], [place], [address], 08/06/2024 18:06:33 08/06/19 25 08/06/2024 urina lysis panel , auto Unknown Analyte Negati ve Not Available [facility] With [facility] [address], [place], [address], 08/06/2024 18:06:33 08/06/19 25 08/06/2024 urina lysis panel , auto Unknown Analyte Negati ve Not Available [facility] [address], [place], [address], 08/06/2024 18:06:33 08/06/19 25 08/06/2024 urina lysis panel , auto Unknown Analyte Normal Not Available [facility] [address], [place], [address], 08/06/2024 18:06:33 08/06/19 25 08/06/2024 urina lysis panel , auto Unknown Analyte Normal 1 mg/dl Not Available [facility] [address], [place], [address], 08/06/2024 18:06:33 08/06/19 25 08/06/2024 urina lysis panel , auto Unknown Analyte Negati ve Not Available [facility] [address], [place], [address], 08/06/2024 18:06:33 08/06/19 25 08/06/2024 urina lysis panel , auto Unknown Analyte Negati ve Not Available Count includes the [facility] [place] [facility] With [facility] [address], [place], [address], 08/06/2024 18:06:33 08/06/19 25 08/06/2024 urina lysis panel , auto Unknown Analyte Negati ve Not Available Count includes the [facility] [place] [facility] [address], [place], [address], 08/06/2024 18:06:33 08/06/19 25 08/06/2024 urina lysis panel , auto Unknown Analyte Negati ve Not Available Count includes the [facility] [place] [facility] [address], [place], [address], 08/06/2024 18:06:33 12/09/19 24 12/09/2023 MRI, lumba r spine , w/o contr ast [facility] [address] [place] [id number] Patien t Name: GLENN Malin Patien t : 1944 Patien t Orderi ng Provid er: SALUD MADISON EXAM DATE: 2023 EXAM: MR LUMBAR W/O CONTRA ST HISTOR Y: 78-yea r-old male with chroni c low back pain. COMPAR LLOYD: Outsid e MRI dated 11/25/19 22 FINDIN GS: The lumbar spine is normal in align ent. There is no sublux ation. There is no acute fractu re. There is an old compre ssion fractu re of the L1 verteb ral body. There is mild anteri or margin al osteop hytic spurri ng. No pathol ogic lesion is identi fied in the lumbar spine. There are multip le Schmor l's nodes. The conus medull chuy is normal in appear ance at the T12-L1 level. T11-T1 2 throug h L1-L2: There are minima l disc bulges and minima l endpla te spurri ng. There is no centra l canal stenos is. There is no neural forami nal stenos is. L2-L3: There is a broad- based disc bulge, mild endpla te spurri ng and mild facet arthro brea. There is no centra l canal stenos is. There is mild bilate ral neural forami nal stenos is. L3-L4: There is a broad- based disc bulge/ protru aislinn, mild endpla te spurri ng and modera te facet arthro brea. There is no centra l canal stenos is. There is modera te left and mild right neural forami nal stenos is. L4-L5: There is a broad- based disc protru aislinn and endpla te spurri ng extend ing into the right neural forame n. There is modera te right and mild left facet arthro brea. There is no centra l canal stenos is. There is modera te right and mild left neural forami nal stenos is. L5-S1: There is a diffus e disc/o steoph yte comple x and mild facet arthro brea. There is no centra l canal stenos is. There is modera te bilate ral neural forami nal stenos is. There is mild atroph y of the parasp inous muscul ature. IMPRES AISLINN: 1. There are diffus e degene rative change s in the lumbar spine with mild to modera te neural forami nal narrow ing from L2-L3 throug h L5-S1. Interp reted By: Marianne carter MD Electr onical ly Signed By: Marianne carter MD on 024 12:04 PM [facility] [address] [place], [address], 12/21/2023 11:35:37 12/14/19 24 12/09/2023 MRI, lumba r spine , w/o contr ast [facility] [address] [facility] [place] [address] ADDMadeline NDUM #1 Patiomi t Name: GLENN ufnez : 1944 Patiomi funez Orderi ng Provid er: SALUD MADISON EXAM DATE: 2023 EXAM: MR LUMBAR W/O CONTRA ST ADDEND UM: There are type II Modic change s from L2-L3 throug h L5-S1 which are promin ent at L5-S1. Interp reted By: Marianne carter MD Electr onical ly Signed By: Marianne carter MD on 024 12:07 PM ORIGIN AL REPORT Patiomi t Name: GLENN funez : 1944 [place] funez Orderi ng Provid er: SALUD MADISON EXAM DATE: 2023 EXAM: MR LUMBAR W/O CONTRA ST HISTOR Y: 78-yea r-old male with chroni c low back pain. COMPAR LLOYD: Outsid e MRI dated 11/25/19 FINDIN GS: The lumbar spine is normal in alignm ent. There is no sublux ation. There is no acute fractu re. There is an old compre ssion fractu re of the L1 verteb ral body. There is mild anteri or margin al osteop hytic spurri ng. No pathol ogic lesion is identi fied in the lumbar spine. There are multip le Schmor l's nodes. The conus medull chuy is normal in appear ance at the T12-L1 level. T11-T1 2 throug h L1-L2: There are minima l disc bulges and minima l endpla te spurri ng. There is no centra l canal stenos is. There is no neural forami nal stenos is. L2-L3: There is a broad- based disc bulge, mild endpla te spurri ng and mild facet arthro brea. There is no centra l canal stenos is. There is mild bilate ral neural forami nal stenos is. L3-L4: There is a broad- based disc bulge/ protru aislinn, mild endpla te spurri ng and modera te facet arthro brea. There is no centra l canal stenos is. There is modera te left and mild right neural forami nal stenos is. L4-L5: There is a broad- based disc protru aislinn and endpla te spurri ng extend ing into the right neural forame n. There is modera te right and mild left facet arthro brea. There is no centra l canal stenos is. There is modera te right and mild left neural forami nal stenos is. L5-S1: There is a diffus e disc/o steoph yte comple x and mild facet arthro brea. There is no centra l canal stenos is. There is modera te bilate ral neural forami nal stenos is. There is mild atroph y of the parasp inous muscul ature. IMPRES AISLINN: 1. There are diffus e degene rative change s in the lumbar spine with mild to modera te neural forami nal narrow ing from L2-L3 throug h L5-S1. Interp reted By: Marianne carter MD Electr onical ly Signed By: Marianne carter MD on 024 12:04 PM [facility] [address] [facility], [place], [address], 12/21/2023 11:49:37 01/04/20 24 01/04/2024 XR, knee, 3 view Dejon guerin [facility] [address] [id number] Davis funez Name: GLENN funez : 1944 Yarelyomi funez Orderi ng Provid er: MASON VILLALBA EXAM DATE: 2023 EXAM: XR RT KNEE 3 VIEWS COMPAR LLOYD: 023 HISTOR Y: Follow -up of prior surger y. FINDIN GS: Again seen is a right knee total arthro plasty . There is no eviden ce of loosen ing. No fractu re is identi fied. Contra latera l knee: There are severe degene rative change s. IMPRES AISLINN: 1. There is a right total knee arthro plasty in place withou t eviden ce of loosen ing. Interp reted By: Marianne carter MD Electr onical ly Signed By: Marianne carter MD on 024 10:20 AM [email or web address] [facility] [place] [address], [place], [address], 01/04/2024 10:32:25 Result Notes Documentation Provider Name and Address Organization Details Recorded Time Mri, Lumbar Spine, W/o Contrast : [facility] [address] [place] [address] Patient Name: GLENN HEATH JR Patient : 1945 Patient Ordering Provider: COURTNEY MADISON EXAM DATE: 12/09/2023 EXAM: MR LUMBAR W/O CONTRAST HISTORY: 78-year-old male with chronic low back pain. COMPARISON: Outside MRI dated 11/24/2021 FINDINGS: The lumbar spine is normal in alignment. There is no subluxation. There is no acute fracture. There is an old compression fracture of the L1 vertebral body. There is mild anterior marginal osteophytic spurring. No pathologic lesion is identified in the lumbar spine. There are multiple Schmorl's nodes. The conus medullaris is normal in appearance at the T12-L1 level. T11-T12 through L1-L2: There are minimal disc bulges and minimal endplate spurring. There is no central canal stenosis. There is no neural foraminal stenosis. L2-L3: There is a broad-based disc bulge, mild endplate spurring and mild facet arthropathy. There is no central canal stenosis. There is mild bilateral neural foraminal stenosis. L3-L4: There is a broad-based disc bulge/protrusion, mild endplate spurring and moderate facet arthropathy. There is no central canal stenosis. There is moderate left and mild right neural foraminal stenosis. L4-L5: There is a broad-based disc protrusion and endplate spurring extending into the right neural foramen. There is moderate right and mild left facet arthropathy. There is no central canal stenosis. There is moderate right and mild left neural foraminal stenosis. L5-S1: There is a diffuse disc/osteophyte complex and mild facet arthropathy. There is no central canal stenosis. There is moderate bilateral neural foraminal stenosis. There is mild atrophy of the paraspinous musculature. IMPRESSION: 1. There are diffuse degenerative changes in the lumbar spine with mild to moderate neural foraminal narrowing from L2-L3 through L5-S1. Interpreted By: Cristopher Mccauley MD Sandra Talbot [facility] 12/21/2023 11:35:37 Mri, Lumbar Spine, W/o Contrast : [address] [address] ADDENDUM #1 Patient Name: GLENN HEATH JR Patient : 1945 Patient Ordering Provider: COURTNEY MADISON EXAM DATE: 12/09/2023 EXAM: MR LUMBAR W/O CONTRAST ADDENDUM: There are type II Modic changes from L2-L3 through L5-S1 which are prominent at L5-S1. Interpreted By: Cristopher Mccauley MD ORIGINAL REPORT Patient Name: GLENN HEATH JR Patient : 1945 Patient Ordering Provider: COURTNEY MADISON EXAM DATE: 12/09/2023 EXAM: MR LUMBAR W/O CONTRAST HISTORY: 78-year-old male with chronic low back pain. COMPARISON: Outside MRI dated 11/24/2021 FINDINGS: The lumbar spine is normal in alignment. There is no subluxation. There is no acute fracture. There is an old compression fracture of the L1 vertebral body. There is mild anterior marginal osteophytic spurring. No pathologic lesion is identified in the lumbar spine. There are multiple Schmorl's nodes. The conus medullaris is normal in appearance at the T12-L1 level. T11-T12 through L1-L2: There are minimal disc bulges and minimal endplate spurring. There is no central canal stenosis. There is no neural foraminal stenosis. L2-L3: There is a broad-based disc bulge, mild endplate spurring and mild facet arthropathy. There is no central canal stenosis. There is mild bilateral neural foraminal stenosis. L3-L4: There is a broad-based disc bulge/protrusion, mild endplate spurring and moderate facet arthropathy. There is no central canal stenosis. There is moderate left and mild right neural foraminal stenosis. L4-L5: There is a broad-based disc protrusion and endplate spurring extending into the right neural foramen. There is moderate right and mild left facet arthropathy. There is no central canal stenosis. There is moderate right and mild left neural foraminal stenosis. L5-S1: There is a diffuse disc/osteophyte complex and mild facet arthropathy. There is no central canal stenosis. There is moderate bilateral neural foraminal stenosis. There is mild atrophy of the paraspinous musculature. IMPRESSION: 1. There are diffuse degenerative changes in the lumbar spine with mild to moderate neural foraminal narrowing from L2-L3 through L5-S1. Interpreted By: Cristopher Mccauley MD [facility] 12/21/2023 11:49:37 Xr, Knee, 3 View : [facility] [address] [place] [address] Patient Name: GLENN HEATH JR Patient : 1945 Patient Ordering Provider: MASON VILLALBA EXAM DATE: 01/04/2024 EXAM: XR RT KNEE 3 VIEWS COMPARISON: 11/04/2022 HISTORY: Follow-up of prior surgery. FINDINGS: Again seen is a right knee total arthroplasty. There is no evidence of loosening. No fracture is identified. Contralateral knee: There are severe degenerative changes. IMPRESSION: 1. There is a right total knee arthroplasty in place without evidence of loosening. Interpreted By: Cristopher Mccauley MD N VILLALBA PA-C [address] [place] [address], [phone], [facility] 01/04/2024 10:32:25 Problems Name Problem SNOMED Code Status Onset Date Resolution Date Notes Provider Name and Address Organization Details Recorded Time Increased frequency of urination 969368613 Active 2015 From Automated Load;Prov ider: Damien France Jr;[facility]: Active Not Available [facility] 3 19:09:11 Urgent desire to urinate 62941369 Active 2015 From Automated Load;Prov ider: Damien France Jr;[facility]: Active Not Available [facility] 3 19:09:11 Lower urinary tract symptoms due to benign prostatic hypertrop hy 28272203265 101 Active 2015 From Automated Load;Prov ider: Damien France Jr;[facility]: Active Not Available [facility] 3 19:09:11 Prostate specific antigen above reference range 092124875 Active 2015 From Automated Load;Prov ider: Damien France Jr;[facility]: Active Not Available [facility] 3 19:09:11 Benign prostatic hyperplas ia without outflow obstructi on 551264674 Active 2016 Not Available [facility] 3 19:09:11 Retention of urine 574908596 Active 2017 Not Available [facility] 3 19:09:11 Problem Notes None recorded. Procedures Surgical History Date Name Laterality Status Provider Name and Address Organization Details Recorded Time 10/06/19 24 Lumbar Radiofrequency Ablation completed DISHA HARDIN MD [address] [place] [address], [phone], [facility] 10/05/2023 10:21:03 09/28/19 24 Lumbar Medial Branch Blocks completed DISHA HARDIN MD [address] [place] [address], [phone], [facility] 09/28/2023 08:10:57 02/28/20 24 Lumbar Medial Branch Blocks completed DISHA HARDIN MD [address] [place], [address], [facility] 09/21/2023 07:37:59 01/23/20 23 total replacement of hip completed Cynthia Brown [facility] 08/25/2023 10:57:28 09/20/19 23 Total knee arthroplasty completed Lora Liz [facility] 10/04/2022 14:45:08 10/03/19 22 Injection Joint/Bursa, Major completed Nerissa MICHEL PA-C [address] [place], [address], [facility] 10/02/2021 16:48:01 05/20/20 20 Injection Joint/Bursa, Major, w/o US completed SHEILA GOULD MD [address] [place], [address], [facility] 05/20/2020 08:41:42 06/22/20 18 Post Void Residual; Ultrasound completed [facility] 06/22/2018 10:55:50 12/23/19 18 Post Void Residual; Ultrasound completed Margaret Branham [facility] 12/22/2017 12:05:43 Prostate biopsy, any mthd completed Maluelenmadeline [facility] 12/02/2016 09:35:43 Total hip arthroplasty completed Guykarina Liz [facility] 10/02/2021 13:03:00 Imaging Results None recorded. Procedure Notes None recorded. Medical Equipment None Reported. Allergies Allergen ID Allergen Name Allergen Category Reaction Reaction Severity Criticality Documentation Date Start Date Code Code System Note Provider Name and Address Organization Details Recorded Time 608120 folic acid / vitamin B12 / vitamin B6 medicatio n Not available Not available Not available 09/06/20162015 02340 64 RxNorm Comme nt: Creat ed By: Trevor loomis Date: 016 10:37 :51 AM; Not Available [facility] 7 11:00:42 218214 Amitiza medicatio n dizziness other severe severe Not available 09/06/20162015 98399 5 [facility] 08:35:13 Medications Name Sig Start Date Stop Date Status Note LastModified by Organization Details LastModified Time celecoxib 200 mg capsule Take 1 capsule twice a day by oral route. 03/07 completed Not Available Not Available Not Available cyclobenz aprine 10 mg tablet Take 1 tablet 3 times a day by oral route. 06/30 completed Not Available Not Available Not Available latanopro st 0.005 % eye drops INSTILL 1 DROP INTO AFFECTED EYE(S) BY OPHTHALM IC ROUTE ONCE DAILY INTHE EVENING active Not Available Not Available No t Available metformin 500 mg tablet Take 1 tablet every day by oral route. 08/25 completed Not Available Not Available Not Available hydrocodo ne 5 mg-acetam inophen 325 mg tablet Take 1 tablet every 6 hours by oral route. 01/13 completed Not Available Not Available Not Available meloxicam 15 mg tablet Take 1 tablet every day by oral route. 08/25 completed Not Available Not Available Not Available tramadol 50 mg tablet Take 1 tablet every 6 hours by oral route. 03/07 completed Not Available Not Available Not Available Depo-Medr ol 80 mg/mL suspensio n for injection Take 1.5 mL by injectio n route. 09/06 completed Not Available Not Available Not Available tamsulosi n 0.4 mg capsule Take 1 capsule every day by oral route. 08/25 completed Not Available Not Available Not Available doxycycli ne monohydra te 100 mg capsule Take 1 capsule twice a day by oral route. 06/27 completed Not Available Not Available Not Available chlorprom azine 25 mg tablet Take 1 tablet twice a day by oral route. 08/25 completed Not Available Not Available Not Available oxycodone 5 mg capsule Take 1 capsule every 6 hours by oral route. 03/07 completed Not Available Not Available Not Available indometha david 50 mg capsule Take 1 capsule 3 times a day by oral route. 05/14 completed Pt states he takes 1 capsule daily. sometime s 2x a day Not Available Not Available Not Available timolol 0.25 % eye drops INSTILL 1 DROP INTO AFFECTED EYE(S) BY OPHTHALM IC ROUTE 2 TIMES PER DAY active Not Available Not Available No t Available allopurin ol 300 mg tablet Take 1 tablet every day by oral route. 06/30 completed Not Available Not Available Not Available gabapenti n 100 mg capsule Take 1 capsule 3 times a day by oral route. 03/07 completed Not Available Not Available Not Available Percocet 5 mg-325 mg tablet Take 1 tablet every 4 hours by oral route as needed. 08/25 completed Not Available Not Available Not Available meloxicam active Not Available Not Kelly ilable Not Available potassium acetate active Not Available Not Available Not Available aspirin active Not Available Not Avail able Not Available chlorprom azine 03/07 completed Not Available Not Available Not Available niacin active Not Available Not Availa ble Not Available prednison e active Not Available Not Available Not Available monteluka st active Not Available Not Available Not Available lisinopri l active Not Available Not Available Not Available benzonata te active Not Available Not Available Not Available Xarelto active Not Available Not Avail able Not Available Eliquis 5 mg tablet Take 1 tablet twice a day by oral route. 03/07 completed Not Available Not Available Not Available Trelegy Ellipta active Not Available Not Available Not Available baclofen 5 mg tablet Take 1 tablet 3 times a day by oral route as needed. 08/25 completed Not Available Not Available Not Available turmeric active Not Available Not Avai lable Not Available Rocklatan 0.02 %-0.005 % eye drops INSTILL 1 DROP INTO AFFECTED EYE(S) BY OPHTHALM IC ROUTE ONCE DAILY INTHE EVENING 01/06 completed Not Available Not Available Not Available Vitals Date Recorded Body height Body mass index (BMI) Body weight Provider Name and Address Organization Details Last Updated DateTime 08/06/2024 172.72 cm 32.7 kg/m2 26273.36 g Monae Masters [facility] 08/06/2024 18:05:04 Date Recorded Body height Body mass index (BMI) Body weight Oxygen saturation Oxygen saturation in Arterial blood by Pulse oximetry Heart rate Provider Name and Address Organization Details Last Updated DateTime 172.72 cm 31.9 kg/m2 52164.4 g 96 % 96 % 72 /min Remedios Shea [facility] 11:05:48 Date Recorded Body height Body mass index (BMI) Body weight Provider Name and Address Organization Details Last Updated DateTime 01/04/2024 172.72 cm 31.9 kg/m2 82720.4 g Jodi Laurent [facility] 01/04/2024 09:33:12 Date Recorded Body height Provider Name an d Address Organization Details Last Updated DateTime 01/17/2024 172.72 cm Sandra Talbot [facility] 01/17/2024 09:59:58 Date Recorded Body height Body mass index (BMI) Body weight Provider Name and Address Organization Details Last Updated DateTime 01/30/2024 172.72 cm 32.7 kg/m2 89133.36 g Monae Masters [facility] 01/30/2024 16:25:37 Social History Question Answer Notes LastModified by [email or web address] ion Details LastModified Time Tobacco Smoking Status Never Smoker [facility] 05/20/2020 08:05:47 How Much Tobacco Do You Chew? None [email or web address] Information not available 07/05/2019 Marital Status Informatio n not available 12/02/2016 What Was The Date Of Your Most Recent Tobacco Screening? 08/06/2024 Information not available 08/06/2024 How Much Tobacco Do You Smoke? No [email or web address] Information not available 07/05/2019 Has Tobacco Cessation Counseling Been Provided? No [email or web address] Information not available 07/20/2021 How Many Years Have You Smoked Tobacco? 0 Information not available 06/24/2020 Have You Recently Traveled Abroad? No [email or web address] Information not available 07/20/2021 Sex: Unknown Functional Status Question Answer Note LastModified by Organizat ion Details LastModified Time Do you use any illicit or recreational drugs? No [email or web address] Information not available 07/20/2021 Do you or have you ever used any other forms of tobacco or nicotine? No Information not available 07/20/2021 What is your level of alcohol consumption? None [email or web address] Information not available 08/25/2023 Do you or have you ever used smokeless tobacco? Never used smokeless tobacco [email or web address] Information not available 05/20/2020 Do you or have you ever used e-cigarettes or vape? Never used electronic cigarettes [email or web address] Information not available 05/20/2020 Mental Status None recorded. Family History Relationship Description Onset Age of this Age Resolved Age Notes LastModified by Organization Details LastModified Time Son Heart disease [email or web address] Not available 2016 09:35:08 Medical History Condition Response Coronary Artery Disease N Other N Gout N Kidney Cyst N Kidney Stones N Enlarged Prostate N Heart Arrhythmia Y Emphysema N Head Trauma/Injury N Erectile Dysfunction N Sexually Transmitted Disease N COPD N Depression Y Pneumonia N Incontinence N Prostate Problems N Cancer Prostate N Paralysis N Anxiety Disorder N Hemorrhoids N Obesity N Arthritis Y Infertility N Acid Reflux (GERD) N Hematuria N Cancer N Stroke N Neck Injury N Neurologic Disorder N Previous Radiation Therapy? N Rheumatoid Arthritis N Kidney Disease N Heart Conditions N Kidney or Bladder Problems N Constipation N Urinary Problems N Brain Injury N Ulcers N Prostate Hypertrophy N Bleeding Disorder N Low Testosterone N Tuberculosis N Previous Chemotherapy? N AIDS/HIV N BPH N Urinary Tract Infection N Asthma N Cardiac Disease N Thyroid Disorder N Hepatitis N PCOS N Colon Cancer N Hernia N Colon/Rectal Disorders N Ostomy N Glaucoma Y Pacemaker N Anesthesia Complications Y Genitourinary Disease N Radiation Therapy N Chronic Kidney Disease N Bladder or Kidney Problems N Back Injury Y High Cholesterol N High PSA N Nervous System Disorder N Liver Disease N Organ Transplant N Dialysis N Allergies/Hayfever N False Teeth N Chronic Obstructive Pulmonary Disease N Parkinson's Disease N Chemotherapy N Anemia N Transplant N Back Pain Y Chest Pain N Multiple Sclerosis N Proteinuria N Heart Attack (CT) N Mental Illness N Ovarian Cancer N Diabetes Y Seizures/Epilepsy N Genitourinary problem(s) N Congestive Heart Failure (CHF) N Kidney Failure N Sleep Apnea N Bronchitis N Heart Disease N Hypertension N Past Encounters Encounter ID Performer Location Encounter Start Date Encounter Closed Date Diagnosis/Indication Diagnosis SNOMED-CT Code Diagnosis ICD10 Code Diagnosis Note [id number] DAMIEN FRANCE JR, MD [facility] [address] [place] [address] 12/02/2016 09:13:31 12/02/2016 11:30:21 Prostate specific antigen above reference range 961331802 R97.20 Benign pro static hyperplasia without outflow obstruction 685540162 N40.0 [id number] DAMIEN FRANCE JR, MD [facility] [address] [address] 03/09/2017 09:43:13 03/10/2017 13:32:55 Prostate specific antigen above reference range 136548842 R97.20 Benign pro static hyperplasia without outflow obstruction 589907228 N40.0 [id number] DAMIEN FRANCE JR, MD [facility] [address] [address] 06/06/2017 08:48:39 06/06/2017 11:38:08 Prostate specific antigen above reference range 929733470 R97.20 PSA has improved since our last drawn to 4.8. We will plan to continue to follow conservati vel. Lower urin alfred tract symptoms due to benign prostatic hypertrophy 9838974089 9101 N40.1 symptoms are stable. No new therapy [id number] DAMIEN FRANCE JR, MD [facility] [address] [address] 12/07/2017 11:11:48 12/07/2017 12:09:10 Retention of urine 379151519 R33.9 Lower urin alfred tract symptoms due to benign prostatic hypertrophy 3521734583 9101 N40.1 symptoms are stable. No new therapy Prostate s pecific antigen above reference range 272062181 R97.20 PSA has improved since our last drawn to 4.8. We will plan to continue to follow conservati [facility]. [id number] DAMIEN FRANCE JR, MD [facility] [address] [address] 12/22/2017 11:09:23 12/22/2017 12:40:21 Benign prostatic hyperplasia without outflow obstruction 597826538 N40.0 Prostate s pecific antigen above reference range 604197977 R97.20 Retention of urine 21395 4002 R33.9 [id number] DAMIEN FRANCE JR, MD [facility] [address] [place], [place] [address] 03/06/2018 10:36:22 03/06/2018 10:51:28 Prostate specific antigen above reference range 573156184 R97.20 [id number] DAMIEN FRANCE JR, MD [facility] [address] [address] 06/22/2018 10:14:38 06/22/2018 11:01:11 Benign prostatic hyperplasia without outflow obstruction 936934340 N40.0 Prostate s pecific antigen above reference range 933125556 R97.20 [id number] DAMIEN FRANCE JR, MD [facility] [address] [address] 01/04/2019 10:23:59 01/04/2019 11:23:01 Benign prostatic hyperplasia without outflow obstruction 137389280 N40.0 Prostate s pecific antigen above reference range 907960479 R97.20 [id number] DAMIEN FRANCE JR, MD [facility] [address] [place] [id number] 07/05/2019 10:19:41 07/05/2019 11:10:29 Benign prostatic hyperplasia without outflow obstruction 053766574 N40.0 Prostate s pecific antigen above reference range 616452551 R97.20 [id number] DAMIEN FRANCE JR, MD [facility] [address] [place] [id number] 01/07/2020 10:01:20 01/07/2020 11:18:38 Lower urinary tract symptoms due to benign prostatic hypertrophy 5015354116 9101 N40.1 symptoms are stable. No new therapy Prostate s pecific antigen above reference range 019200583 R97.20 [id number] SHEILA GOULD MD [facility] [address] [place] [address] 05/20/2020 07:44:42 05/20/2020 08:35:10 Bilateral osteoarthritis of knees 5807729991 21229 M17.0 75-year-ol d gentleman with evidence of bilateral knee osteoarthr itis. Moderate involvemen t of the right knee and mild involvemen t of the left knee. Positive right knee joint line tenderness or effusion. No knee joint instabilit y noted. Discussed the diagnosis and the management plans. I encouraged him to lose weight. I also suggested him to start physical therapy to work on both knees as well as lower back. We will try to schedule him locally for the physical therapy. The right knee is given intra-da cular steroid injection. He will continue with the use of indomethac in only as needed basis, and would consider Tylenol extra strength primarily for the pains. Knee joint x-rays obtained as a baseline. Chronic low back pain 27 9862795 M54.5 mechanical low back pain. No radiculopa thy or myelopathy noted. Baseline lumbar spine x-ray obtained. Suggested physical therapy and weight loss as stated above Gout 94231741 M10.9 he has a history of gout, intermitte nt. Typically 1 or 2 attacks a year. He is not on any uric acid lowering therapy I would like to have a baseline serum uric acid level and a serum creatinine . We'll discuss the uric acid lowering therapy after review of the labs. In the meantime he is educated about good hydration and avoidance of high protein diet. Osteoarthr itis of right knee joint [id number] 97139 M17.11 symptomati c, injected with intra-da cular steroid. This is detailed above [id number] DAMIEN FRANCE JR, MD [facility] [address] [facility] [place] [address] 06/30/2020 09:16:07 06/30/2020 10:06:58 Lower urinary tract symptoms due to benign prostatic hypertrophy [id number] 9101 N40.1 symptoms are stable. No new therapy Prostate s pecific antigen above reference range 232603984 R97.20 [id number] SHEILA GOULD MD RHEUMATOL OGY SB [address] [place] [address] 08/19/2020 08:19:24 08/19/2020 09:00:21 Bilateral osteoarthritis of knees [id number] 26288 M17.0 75-year-ol d gentleman with evidence of bilateral knee osteoarthr itis. Moderate involvemen t of the right knee and mild involvemen t of the left knee. clinically stable. No knee joint effusion noted. The steroid injection in April greatly helped the right knee joint pain. We decided to hold off on repeat steroid injection. Suggested weight loss and knee strengthen ing exercises. I once again caution him against the use of NSAIDs and suggested to limit the use of indomethac in to not more than once a day and only as needed. For follow-up blood counts every 6 months with a family physician Chronic low back pain 27 1825214 M54.5 mechanical low back pain. No radiculopa thy or myelopathy noted. stable. Suggested to maintain weight loss and simple stretching exercises. Gout 23628153 M10.9 Chronic. Asymptomat ic. Stable musculoske letal exam No indication s for uric acid lowering therapy Needs to limit the use of NSAIDs to minimal last uric acid level 7.3 mg [id number] SHEILA GOULD MD RHEUMATOL OGY [address] [place] [address] 11/12/2020 08:26:24 11/12/2020 09:07:54 Bilateral osteoarthritis of knees [id number] 24943 M17.0 75-year-ol d gentleman with evidence of bilateral knee osteoarthr itis. Moderate involvemen t of the right knee and mild involvemen t of the left knee. clinically stable. No effusion is noted today. The pain in the right knee is well controlled . We decided to defer steroid injection up until next visit. Suggested weight loss any strengthen ing exercises and limit the use of indomethac in to minimum. Chronic low back pain 27 7656717 M54.5 chronic mechanical low back pain. No radiculopa thy or myelopathy noted. clinically stable. Maintain conservati ve approach including weight loss as stated above. Gout 09081616 M10.9 Chronic. Asymptomat ic. Stable musculoske letal exam No indication s for uric acid lowering therapy Needs to limit the use of NSAIDs to minimal call me for any concerns or acute joint swelling. [id number] DAMIEN FRANCE JR, MD [facility] [address] [place] [address] 12/29/2020 08:47:45 12/29/2020 09:19:33 Lower urinary tract symptoms due to benign prostatic hypertrophy [id number] 9101 N40.1 symptoms are stable. No new therapy Prostate s pecific antigen above reference range 440129902 R97.20 [id number] SHEILA GOULD MD RHEUMATOL OGY SB [address] [place] [address] 05/14/2021 08:37:00 05/14/2021 12:50:06 Bilateral osteoarthritis of knees [id number] 83647 M17.0 76-year-ol d gentleman with evidence of bilateral knee osteoarthr itis. Moderate involvemen t of the right knee and mild involvemen t of the left knee. Fairly stable. Range of motion is intact. No effusion is noted. No instabilit y noted. We decided to defer steroid injection up until next visit. Suggested weight loss and knee strengthen ing exercises and limit the use of indomethac in to minimum. Chronic low back pain 27 1848510 M54.51 chronic mechanical low back pain. There are myelopathy . Weight loss along with back strengthen ing exercises reviewed Gout 14150628 M10.9 Chronic. Has done very well and without any active disease process. Continue to watch without the uric acid lowering therapy. Call me for any concerns. [id number] DAMIEN FRANCE JR, MD [facility] [address] [place] [address] 07/20/2021 09:20:10 07/20/2021 14:06:43 Lower urinary tract symptoms due to benign prostatic hypertrophy [id number] 9101 N40.1 symptoms are stable. No new therapy Prostate s pecific antigen above reference range 584359175 R97.20 [id number] Nerissa MICHEL PA-C [facility] [address] [address] 10/02/2021 12:25:48 10/02/2021 13:45:49 Osteoarthritis of knee 579334544 M17.9 Bilateral knee osteoarthr itis worse on the right. There is a high degree of variance on the subjective symptoms according to the patient versus his . He seems to minimize his limitation s but does not argue when she illustrate s examples that would infer more dramatic effects on his ADLs. I believe he would benefit from total knee arthroplas ty provided she is correct. As such we elected to inject his right knee with steroid and having follow-up in 6 to 8 weeks. If he is noticed increased benefit we should quickly moved to total knee arthroplas ty. [id number] Nerissa MICHEL PA-C [facility] [address] [address] 11/20/2021 09:14:59 11/20/2021 10:09:45 Osteoarthritis of knee 153477893 M17.9 Continued knee osteoarthr itis. Patient's pain is much better with the Lortab he is taking for his back injury. Patient will resume the meloxicam or can call for a different NSAID. There is a pending MRI on his back and potential neurosurge ry referral. Understand ably they want to gather that informatio n before deciding when to proceed with total knee arthroplas ty. He can follow-up in 4 weeks for repeat steroid injection understand ing that there is a 3-week window from injection to surgery [id number] NACHO HUERTA MD NEUROSURG [facility] [address] [place] [address] 12/15/2021 09:56:48 12/15/2021 15:46:30 [id number] eNrissa MICHEL PA-C [facility] [address] [address] 01/13/2022 11:18:21 01/13/2022 12:06:55 Osteoarthritis of knee 837838305 M17.9 On her previous visit we had discussed proceeding with total knee arthroplas ty. We discussed the lack of longevity concern due to his age. We discussed perioperat zach comorbidit ies and perioperat zach risks as he approaches octogenari an. He brought his today to be part of the discussion . He seems to be doing well enough with NSAIDs and intra-da cular injection. Follow-up as needed for continued CSI [id number] MD [facility] [address] [facility] [place] [address] 02/22/2022 14:50:36 03/01/2022 12:59:08 Benign prostatic hyperplasia without outflow obstruction [id number] N40.0 Prostate s pecific antigen above reference range 003620475 R97.20 [id number] FERNANDO MASTERS PA-C [facility] [address] [address] 06/24/2022 14:16:11 06/24/2022 15:19:21 Osteoarthritis of right knee joint 1179614186 25173 M17.11 ASSESSMENT : DJD RIGHT knee PLAN: The patient has severe osteoarthr itis of the RIGHT knee. The patient has failed conservati ve measures including NSAIDs, activity modificati on, corticoste roid injections , etc. The patient has pain daily, affecting his/her activities of daily living. Patient would like to consider surgical interventi on, if possible. We reviewed the risks, benefits, and alternativ es to knee replacemen t surgery. We discussed the risk of infection, fracture, neurovascu lar injury, chronic pain, stiffness, instabilit y, aseptic loosening, and component wear. We discussed the risk of medical complicati ons, including but not limited to, VTE, pulmonary complicati ons, cardiac complicati ons, and stroke. We will arrange consultati on with Dr. Ernesto shi to discuss appropriat e management of patients condition. Tentative surgery date was given today. Possible surgery location: [facility] dities: BPH/glauco maSurgical Clearances : NoMedicati on/Metal Allergies: NoneAllerg y Testing: NoSmoker: No [id number] CAMILO Shi MD [facility] [address] [place] [address] 08/24/2022 14:41:39 08/24/2022 16:42:10 Osteoarthritis of knee 019056389 M17.11 ASSESSMENT : DJD RIGHT knee PLAN:The patient has end stage osteoarthr itis of the RIGHT knee. The patient has failed conservati ve measures including NSAIDs, activity modificati on, corticoste roid injections , etc. The patient has pain daily, affecting his/her activities of daily living. They wish to proceed with total knee arthroplas ty, which I believe to be reasonable . We reviewed the risks, benefits, and alternativ es to knee replacemen t surgery. We discussed the risk of infection, fracture, neurovascu lar injury, chronic pain, stiffness, instabilit y, aseptic loosening, and component wear. We discussed the risk of medical complicati ons, including but not limited to, VTE, pulmonary complicati ons, cardiac complicati ons, and stroke. All questions were answered to the best of my ability. [facility] location: [facility] equipment: Caitlin MCPre-op clearance: PASSOther medical clearance: DVT prophylaxi s: ASA, TEDAdmissi on status: OUTPATIENT [facility] Allergies: otherSkin testing: No [id number] CAMILO Shi MD SURGERY SCHEDULE [address] [place] [address] 09/21/2022 13:19:26 09/22/2022 14:10:15 [id number] C JEANNA MICHEL PA-C [facility] [address] [place] [address] 10/13/2022 12:06:05 10/13/2022 12:50:34 Postoperative care [id number] Z48.89 3-week status post right TKA. Patient is quite annoyed by the normal mechanical feel of the arthroplas ty. I told him that I hoped it was less annoying than the pain and that usually he will quit noticing it after some time. Also was upset at the nurse that did not shave amalia cervantes in his opinion. He has significan t discomfort with flexing the knee and it pulling on his hairs that were underneath his dressing. He showed me how there was uneven shaving on the footprint of the dressing.D espite those perceived problems overall the patient is doing well. He did have some gastroc tenderness that warranted ultrasound which was ordered today. Follow-up in 3 weeks with Fernando Masters for three-view x-ray [id number] FERNANDO MASTERS PA-C [facility] [address] [place] [address] 11/04/2022 08:16:04 11/04/2022 08:59:30 History of arthroplasty of right knee [id number] 218016 Z96.651 Assessment : 6 weeks status post right knee arthroplas ty Plan: Patient doing very well. Incision fully healed. Okay to submerge. Continue physical therapy until all goals are met. Follow-up in 8 weeks with long-leg x-ray and probable discharge to 1 year follow-up. Call with any concerns. [id number] DAMIEN FRANCE JR, MD [facility] [address] [facility] [address] [place] [address] 11/01/2022 13:49:02 11/08/2022 04:06:46 Lower urinary tract symptoms due to benign prostatic hypertrophy [id number] 9101 N40.1 symptoms are stable. No new therapy [id number] FERNANDO MASTERS PA-C [facility] [address] [address] 12/31/2022 10:18:56 12/31/2022 11:53:51 History of arthroplasty of right knee [id number] 214593 Z96.651 Assessment : 14 weeks status post right knee arthroplas ty Plan: Doing great. Most patients can expect to see steady improvemen t for up to 1 year following arthroplas ty. Controvers ies surroundin g dental prophylaxi s reviewed. NSAIDs prn for residual pain/swell ing. Routine f/u at 1 years, or prn. [id number] DAMIEN FRANCE JR, MD [facility] [address] [facility] [address] [place] [address] 02/28/2023 13:04:25 02/28/2023 14:38:00 Prostate specific antigen above reference range 536233812 R97.20 Lower urin alfred tract symptoms due to benign prostatic hypertrophy 0850273942 9101 N40.1 symptoms are stable. No new therapy [id number] DAMIEN FRANCE JR, MD [facility] [address] [facility] [address] [place] [address] 06/27/2023 14:14:01 06/27/2023 18:38:10 Benign prostatic hyperplasia without outflow obstruction 138609505 N40.0 Prostate s pecific antigen above reference range 228005635 R97.20 [id number] SHEILA GOULD MD RHEUMATOL OGY SB [address] [place] [address] 08/25/2023 10:46:07 08/31/2023 09:26:18 Gout 90167750 M10.9 Chronic. Has done very well and without any active disease process. Continue to watch without the uric acid lowering therapy. Call me for any concerns. Low back pain 179135199 M54.50 Chronic low back pain with recent worsening. Had a history of fall in 2021 sustained L1 compressio n fracture. He was evaluated by neurosurge ry at that time. However denies any subsequent fractures. Seems to have more pain ever since.Does not have any clinical evidence of radiculopa thy.Does have some strain in the lumbosacra l region.MRI spine 11/24/2021 with subacute L1 compressio n fracture along with central stenosis L4-S1. I suggested him to follow-up with pain management Dr. Hardin for further evaluation . Likely could benefit from epidural injection versus facet injection. Radiofrequ ency ablation would be another reasonable option. He is also given intramuscu lar Depo-Medro l 120 mg for symptomati c relief. [id number] DISHA HARDIN MD [facility]IN [facility] CLOSED [address] [place] [address] 09/06/2023 10:47:20 09/06/2023 11:37:23 Lumbar spondylosis 903467912 M47.816 Degenerati on of lumbosacral intervertebral disc 21594621 M51.37 [id number] DISHA HARDIN MD [facility] [address] [facility] [place] [address] 09/21/2023 08:58:37 09/21/2023 13:08:59 Lumbar spondylosis 487038276 M47.816 [id number] DISHA HARDIN MD [facility] [address] [place] [address], [address] [place] [address] 09/28/2023 10:50:04 09/28/2023 13:11:56 Lumbar spondylosis 300306445 M47.816 [id number] DISHA HARDIN MD [facility] [address] [place] [address], [address] [place] [address] 10/06/2023 12:15:23 10/12/2023 09:21:53 Lumbar spondylosis 583074728 M47.816 [id number] COURTNEY MADISON PA-C [facility] [address] [place] [address] 11/15/2023 10:57:05 11/15/2023 11:23:56 Lumbar spondylosis 150749109 M47.816 Degenerati on of lumbosacral intervertebral disc 76773611 M51.37 [id number] MASON VILLALBA PA-C [facility] [address] [address] 01/04/2024 09:12:38 01/04/2024 10:33:25 History of arthroplasty of right knee [id number] 782542 Z96.651 Assessment : 1 year status post right knee arthroplas ty Plan: Mr. Heath is 1 year status post right TKA. Patient presents today with concerns of clicking in the right knee that he reports to me was present before his TKA. This is his main concern at this time. He denies pain, stiffness, or soreness in the knee. The clicking is more less annoying to him he reports and occurred after long periods of walking. He also reports that his operative extremity is longer than the left. We discussed possible heel inserts going forward. Provided reassuranc e as well today in regards to the clicking in the right knee. Continue NSAIDs/Tyl enol for residual pain or swelling. And prophylaxi s reviewed. Radiograph s obtained today reveal intact TKA implants in good positionin g andalignme nt. Physical exam reveals good ROM without pain and a well-heale d surgical incision.W e reviewed the expected progressio n of recovery and rehabilita tion. At this time,the patient is encouraged to continue all activities of daily living as comfortabl e. The patientsho uld continue maintainin g strength bilateral legs with HEP.Patien t will return to clinic in 2 years or sooner if symptoms warrant. [id number] COURTNEY MADISON PA-C [facility] CLOS[facility] [address] [place] [address] 01/17/2024 09:52:32 01/17/2024 10:39:47 Low back pain 454628927 M54.51 Intracept info provided for considerat ion once patient can have procedures again Degenerati on of lumbar intervertebral disc 49458282 M51.36 Lumbar spondylosis 38556 0009 M47.816 [id number] DAMIEN FRANCE JR, MD [facility] [address] [place] [address] 01/30/2024 15:52:05 01/30/2024 16:50:45 Lower urinary tract symptoms due to benign prostatic hypertrophy 2328143134 9101 N40.1 symptoms are stable. No new therapy Prostate s pecific antigen above reference range 294217680 R97.20 [id number] DAMIEN FRANCE JR, MD [facility] [address] [facility] [place] [address] 08/06/2024 14:24:52 08/06/2024 18:39:54 Lower urinary tract symptoms due to benign prostatic hypertrophy 1502623181 9101 N40.1 symptoms are stable. No new therapy Prostate s pecific antigen above reference range 525502103 R97.20 Continue to monitor trend Health Concerns Section Related Observation LastModified by Organization Detai ls LastModified Time None Recorded Concern Status LastModified by Organization Details LastModified Time None Recorded Advance Directives Directive None Recorded Payers Insurance Date Sequence Insurance Name Policy Number Policy Carbone Covered Member ID Carbone Member ID Guarantor Name 08/13/2024 1 [facility] (MEDICARE REPLACEMENT/A DVANTAGE - PPO) [id number] [place]amel A [place] [id number] Oramel A Kumar 08/19/2022 1 [employer] (PPO) [id number] Oramel Robi Heath Jr [id number] Oramel A [place] 08/19/2022 1 [employer] (MEDICARE REPLACEMENT/A DVANTAGE - PPO) [id number] Orayad Heath Jr [id number] Oramel A Kumar 08/19/2022 1 [place] Orayad Heath Jr [id number] Oramel A [place] 08/19/2022 1 [place] - [place]) [id number] Glenn Heath Jr [id number] Glenn Heath 08/24/2022 1 [employer] (MEDICARE REPLACEMENT/A DVANTAGE - PPO) [id number] Glenn Heath [id number] Glenn Heath Notes Date Note Type Note Provider Name and Address Organization Details Recorded Time 4 text/html Glenn Heath Jr. is an 78-year-old male presenting to the clinic today for follow-up in regards to lumbar back pain. Patient underwent a bilateral L3-L5 RFA with Dr. Hardin on 10/06/2023 and returns to clinic today reporting approximately 60% relief in lower back pain. COURTNEY MADISON PA-C [address] [place] [address], [phone], [facility] 11/15/2023 11:40:46 4 text/html 01/04/24: Patient is here today for 1 year post op visit from R TKA 09/20/22.Patient reports they are doing well.Any pain? NoAmbulating with no assistive deviceAny issues or concerns yes Not a big concern but mentioned his R leg feels a little longer than lt. Also states that he still has clicking in knee which is annoying. When walking a long time he gets pain in R hip which had a previous DEEPAK. Denies fevers, chills, or wound drainage. 4-4-81Vakpsqh is 14 weeks s/p R TKA.Pain is improving 2/10, concerned about warmth to knee.Currently taking no doses per day of narcotic.Ambulating with no assistive devicePT: outpatient [facility] PT Denies fevers, chills, or wound drainage.They do not request a refill of pain medicine. 3Patient is 6 weeks s/p R TKA.Pain is improving 4/10Currently taking <3 doses per day of narcotic.meloxicam 15 mg daily.Ambulating with canePT: outpatient Denies fevers, voices chills and warmth to knee with minimal relief from ICE, or wound drainage.They do not request a refill of pain medicine. 10-13-22:Patient is 3 weeks s/p R TKA.Pain is improving 3/4 during the day, increase pain at night. notes pain and warmth to the touch globally to knee. p/t uses RICE but pain returns. states clunking while walking. mild crepitus. denies instabilityCurrently taking 3-4 doses per day of narcotic.Ambulating with walkerPT: home health has had scheduling difficulties. moving to out patient physical therapy. Denies fevers, chills, or wound drainage.They do not request a refill of pain medicine. p/t had onset of hiccups, lasting approximately 12 days. onset post surgery at hospital. MASON VILLALBA PA-C [address] [place] [address], [phone], [facility] 01/04/2024 10:47:09 4 text/html Glenn Heath an 78-year-old male presenting to the clinic today for a follow-up to review his lumbar MRI. COURTNEY MADISON PA-C [address] [place] [address], [phone], [facility] 01/17/2024 11:20:01 4 text/html patient is in today for follow-up of BPH and elevated PSA. He has a long history of elevated PSA having undergone multiple prostate biopsies which were benign. His last biopsy was in 2013. PSA is 6.6 with free over total percentage of 19.2% December 2023, stable MRI of the prostate was performed February 23, 2017. The prostate is markedly enlarged with changes of BPH. There is an area seen in the peripheral zone is 1.7 cm, Pi rads 2. He underwent total hip arthroplasty and was treated for urinary retention with Lynch catheter. He is now voiding spontaneously without medical therapy for BPH. He has mild lower urinary tract symptoms but does not desire medical therapy. We talked about prostate supplements. DAMIEN FRANCE JR, MD [address] [place] [address], [phone], [facility] 02/02/2024 11:44:06 5 text/html patient is in today for follow-up of BPH and elevated PSA. He has a long history of elevated PSA having undergone multiple prostate biopsies which were benign. His last biopsy was in 2013. PSA is 6.4 with free over total percentage of 30% July 2024, stable MRI of the prostate was performed February 23, 2017. The prostate is markedly enlarged with changes of BPH. There is an area seen in the peripheral zone is 1.7 cm, Pi rads 2. He underwent total hip arthroplasty and was treated for urinary retention with Lynch catheter. He is now voiding spontaneously without medical therapy for BPH. He has mild lower urinary tract symptoms but does not desire medical therapy. We talked about prostate supplements. DAMIEN FRANCE JR, MD [address] [place] [address], [phone], [facility] 08/12/2024 10:58:25
--- OUTSIDE RECORDS SUMMARY | 2025-01-10 14:18 | XMS_ITS | Continuity of Care Document ---
Author Organization [facility] Address [address] [place] [address] Care Team Providers Care Superintendent Pressure Name Role Phone SP BOLANOS Primary Care [...] l, 2 or 3 view 2024 025 [email or web address] In-House Imaging - [facility], [address], [place], [address], 11/13/2024 07:52:40 Medication Orders None recorded. Patient TargetsNo targets recorded. Patient InstructionsNo instructions recorded. Reason for Referral None Reported. Results Created Date Observation Date Name Description Value Unit Range Abnormal Flag Note LastModifiedBy Organization Detail LastModifiedTime 11/13/1911/13/2024 elect allen nguyen am No observ ation record ed. [facility] - [address], [place], [address], 11/13/2024 15:49:09 11/13/19 25 11/12/2024 elect allen diogr am No observ ation record ed. [email or web address] Not Available 11/12 13:10:59 11/13/19 25 11/12/2024 XR, hip, unila teral , 2 or 3 view No observ ation record ed. [email or web address] In-House Imaging - [facility] [address] , [place], [address], 11/13/2024 15:43:52 11/30/19 25 11/29/2024 venazeem s duple x US lwr lt ext [facility] [address] [place] [address] Phone: Fax: Name: NEYMAR NAVARRO Exam Date: 11/30/19 : 1944 Age 79 years Gender : M Access ion: [id number] Physic melany: GOMEZ RUELAS Facili ty: [facility] Facili ty HSV: Outpat ient [...] Thank you for referr NEYMAR Putnam to [facility]. Legall y authen ticate d by EMIGDIO [place] 11-29 10:22: 00 CC'ed Logic: Orderi ng Provid er: JESSENIA DYER Attend ing Provid er: JESSENIA DYER Admitt ing Provid er: JESSENIA DYER [email or web address] [facility] [address] [facility], [place], [address], 11/30/2024 14:56:32 12/11/19 25 12/05/2024 HOLTER MONITO R DEE DEE Malin, NEYMAR [facility] 4 2 DATE OF SERVIC E: 2024 PROVID ER: Rashid Hernandez MD, [facility] DATE OF STUDY: 2024 to 2024. INDICA [...] block. DICTAT ED BY: Rashid Hernandez MD, [facility] JT/MOD L DD: 2024 17:17: 05 DT: 2024 17:59: 17 /[id number] Electr onical ly Signed By: DAMIEN Correa 12-10 08:42: 19 CC'ed Logic: Orderi ng Provid er: DAMIEN CROUCH [email or web address] [facility] [address], [place], [address], 12/11/2024 16:16:55 Result Notes None recorded. Procedures Surgical History Date Name Laterality Status Provider Name and Address Organization Details Recorded Time 03/28/20 24 Venipuncture completed Julita Owen PA-C [address], [place], [address], [place] - [facility] [place] & [place] 03/15/2024 12:34:55 02/15/20 24 Venipuncture completed Ann [place] [facility] 02/15/2024 13:40:07 02/01/20 23 repair of hip completed Steff Rothamer [place] [facility] [place] 03/12/2024 10:23:01 09/20/19 23 Joint Replacement completed Steff [place]amer [place] [facility] & [place] 04/20/2024 09:24:51 01/29/20 21 Hernia Repair completed Steff [place]amer [place] [facility] [place] [facility] [place] 05/20/2023 07:50:46 10/14/19 18 Hip Surgery completed Steff [place] [facility] [place] [facility] [place] 03/12/2024 10:24:59 02/23/20 17 procedure on neck completed Steff [place]amer [place] [facility] [place] 05/20/2023 07:50:07 07/25/19 17 Cataract Surgery completed Steff [place] [facility] [place] [facility] [place] 01/07/2025 16:23:56 Knee Surgery completed Steff [place] [facility] [place] [facility] [place] 05/20/2023 07:48:48 Eye Surgery completed Steff [place]amer [place] [facility] [place] [facility] [place] 05/20/2023 07:49:07 Colonoscopy completed Steff [place]amer [place] [facility] & [place] 05/20/2023 07:49:20 tonsilectomy/valerie noids completed Steff Rothamer [place] [facility] [place] [facility] [place] 01/07/2025 16:27:01 Back Surgery completed Steff Hooper [place] & [place] 01/07/2025 16:27:18 Imaging Results None recorded. Procedure Notes None recorded. Medical Equipment None Reported. Allergies Allergen ID Allergen Name Allergen Category Reaction Reaction Severity Criticality Documentation Date Start Date Code Code System Note Provider Name and Address Organization Details Recorded Time 027033 brinzolam markus medicatio n other Not available low 03/12/2024 08486 1 RxNorm passe d out ARIANNA aJcobs [facility] & [place] 4 10:20:55 240385 lubiprost one medicatio n dizziness Not available high 03/12/2024 94013 3 RxNorm ARIANNA Jacobs [facility] & [place] 4 10:21:07 934337 timolol medicatio n other Not available low 03/12/2024 38211 RxNorm pass ed out from JORGE VASQUEZ, not Timol ol alone ARIANNA Jacobs [facility] & [place] 4 10:21:34 Medications Name Sig Start Date [...] Updated DateTime 5 175.26 cm 32.6 kg/m2 279351. 91 g 98.4 [degF] 94 % 94 % 70 /min 120 mm[Hg] 88 mm[Hg] Roxy KELLER [facility] & [place] 5 11:20:30 Social History Question Answer Notes LastModified by Organizat ion Details LastModified Time Tobacco Smoking Status Never Smoker Roxy Miramontes [facility], [facility] & [place] 09/30/2022 16:37:36 Do You Have An Advance Directive? Yes [email or web address] Information not available 12/21/2022 Are You Blind Or Do You Have Difficulty Seeing? No Information not available 12/21/2022 Is Blood Transfusion Acceptable In An Emergency? No Information not available 04/20/2024 What Is Your Level Of Caffeine Consumption? Occasional [email or web address] Information not available 12/21/2023 Are You Deaf Or Do You Have Serious Difficulty Hearing? No [email or web address] Information not available 03/28/2024 What Type Of Diet Are You Following? REGULAR [email or web address] Information not available 03/28/2024 How Many Days Of Moderate To Strenuous Exercise, Like A Brisk Walk, Did You Do In The Last 7 Days? 6 [email or web address] Information not available 09/27/2024 Have There Been Any Changes To Your Family Or Social Situation? No [email or web address] Information no t available 03/28/2024 In General, Would You Say Your Health Is Fair [email or web address] Information not available 09/27/2024 How Would You [...] Bread, 1 Cup Of Whole-grain Or High-fiber Ydgnr-mm-boz Cereal, 1 2 Cup Of Cooked Cereal Such As Oatmeal, Or 1 2 Cup Of Cooked Brown Rice Or Whole Wheat Pasta.) 1-2 Servings Per Day Information not available 04/20/2024 In The Past 7 Days, How Many Servings Of Fried Or High-fat Foods Did You Typically Eat Each Day? (Examples Include Fried Chicken, Fried Fish, [place], [place], Potato Chips, [place] Chips, Doughnuts, Creamy Salad Dressings, And Foods Made With Whole Milk, Cream, Cheese, Or Mayonnaise.) 0 Servings Per Day Information not available 04/20/2024 In The Past 7 Days, How Many Sugar-sweetened (not Diet) Beverages Did You Typically Consume Each Day 0 Drinks Per Day Information not available 04/20/2024 Each Night, How Many Hours Of Sleep Do You Usually Get? 7-8 Hours [email or web address] Information not available 03/28/2024 Do You Snore Or Has Anyone Told You That You Snore? Yes [email or web address] Information not available 03/28/2024 In The Past 7 Days, How Often Have You [place]way Sleepy During The Daytime? Always Information not available 04/20/2024 Do You Have Chronic Pain? No [email or web address] Information not available 03/28/2024 In The Past 7 Days, How Would You Rate Your Pain? Mild Pain(1-3) [email or web address] Information not available 03/28/2024 Are You In A Pain Management Program? No Information not available 03/28/2024 Do You Take Opioids For Your Pain? No [email or web address] Information not available 03/28/2024 How Often Is Stress A Problem For You In Handling Such Things As: Your Health, Your Finances, Your Family And Social Relationships, Your Work? Never Or Rarely [email or web address] Information not available 03/28/2024 How Often Do [...] available 03/28/2024 Do You Live Alone? No Information not available 03/28/2024 Does Your Home Have Any Fall Risks (un-level Floors, Unfastened Rugs, Poor Lighting, Etc)? No [email or web address] Information not available 03/28/2024 Do You Feel Safe At Home? Yes [email or web address] Information not available 03/28/2024 Do You Have A Medical Power Of Hand Chain Maker? Yes Information not available 04/20/2024 What Was The Date Of Your Most Recent Tobacco Screening? 04/24/2024 Information not available 2024 How Many Children Do You Have? 2 [email or web address] Information not available 09/27/2024 What Is Your Relationship Status? [email or web address] Information not available 03/28/2024 Do You Use Your Seat Belt Or Car Seat Routinely? Yes Information not available 03/28/2024 Are You Sexually Active? No Information not available 04/20/2024 Do You Have Smoke And Carbon Monoxide Detectors In Your Home? Yes [email or web address] Information not available 03/28/2024 Are You Passively Exposed To Smoke? No Information no t available 12/21/2022 Has Tobacco Cessation Counseling Been Provided? No [email or web address] Information not available 12/21/2023 Do You Have Difficulty Walking Or Climbing Stairs? No Information not available 04/20/2024 Sex: Unknown Functional Status Question Answer Note LastModified by Organizat ion Details LastModified Time Do you use any illicit or recreational drugs? No [email or web address] Information not available 12/21/2022 Do you or have you ever used any other forms of tobacco or nicotine? No [email or web address] Information not available 12/21/2023 What is your level of alcohol consumption? None Information not available 04/20/2024 Do you or have you ever used smokeless tobacco? Never used smokeless tobacco [email or web address] Information not available 12/21/2022 Do you have transportation difficulties? No [email or web address] Information not available 03/28/2024 Are you able to walk? YESWOREST [email or web address] Information not available 03/28/2024 Do you have difficulty doing errands alone? Yes cant drive at night [email or web address] Information not available 03/28/2024 Are you able to care for yourself? Yes Information n ot available 03/28/2024 Do you have difficulty dressing or bathing? No [email or web address] Information not available 03/28/2024 What is your exercise level? Moderate [email or web address] Information not available 09/27/2024 Mental Status Question Answer Note LastModified by Organizat ion Details LastModified Time Do you feel stressed (tense, restless, nervous, or anxious, or unable to sleep at night)? [id number] [email or web address] Information not available 12/21/2022 Do you have difficulty concentrating, remembering or making decisions? No [email or web address] Information no t available 03/28/2024 Family History [...] 1 erica lebron, Medical History Condition Response Gout Y Other Y Vision or Eye [...] Steff [place] null, [place] [facility] 05/20/2023 07:44:01 Influenza, adjuvanted, quadrivalent, PF 1 completed Steff [place]amer null[place] [facility] [place] 05/20/2023 07:44:01 COVID-19, mRNA, LNP-S, PF, 100 mcg/0.5mL dose or 50 mcg/0.25mL dose 1 completed Steff [place] [facility] [place] 05/20/2023 07:44:01 COVID-19, mRNA, LNP-S, PF, 100 mcg/0.5mL dose or 50 mcg/0.25mL dose 1 completed Steff [place]amer [place], [place] [facility] [place] 05/20/2023 07:44:01 pneumococcal polysaccharide PPV23 0 completed Steff [place]amer [place] [facility] [place] 05/20/2023 07:44:01 Influenza, high-dose, trivalent, PF 0 completed Steff Rothamer [place] [facility] [place] 05/20/2023 07:44:01 TST-PPD intradermal 4 completed Roxy Miramontes [place] [facility] [place] 09/20/2023 10:17:13 Influenza, adjuvanted, trivalent, PF 4 completed Sp Bolanos MD [facility] [place], [address], [place] [facility] [place] 06/12/2024 12:19:27 Pneumococcal conjugate PCV 13 8 completed Steff Rothpanfilo null[place] [facility] [place] 01/07/2025 16:23:14 Past Encounters Encounter ID Performer Location Encounter Start Date Encounter Closed Date Diagnosis/Indication Diagnosis SNOMED-CT Code Diagnosis ICD10 Code Diagnosis Note [id number] MD Jeb Velasquez [facility] - [address] [place] [address] 10/25/2024 09:04:59 10/25/2024 09:39:27 History of deep vein thrombosis 590594889 Z86.718 Continue anticoagul ation. Almost likely be long-term. 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 Edema of l ower extremity 090169727 R60.0 . Continue Lasix potassium combinatio n for now. [id number] Sp Bolanos MD [facility] - [address] [facility] [address] [place] [address] 11/12/2024 11:10:40 11/12/2024 11:42:45 Gouty arthritis of left foot 0234789718 191853 M10.9 any use meloxicam on a rare p.r.n. basis for acute gouty pain. Dermatophytosis 72347910 B35.9 Pain of hip region 26988 002 M25.552 Syncope 217964095 R55 [id number] Marck Diaz MD [facility] [address] [place] [address] 11/12/2024 11:47:51 11/12/2024 12:40:39 Pain of hip region 40884855 M25.552 Health Concerns Section Related Observation LastModified by Organization Detai ls LastModified Time None Recorded Concern Status LastModified by Organization Details LastModified Time None Recorded Payers Encounter Date Sequence Insurance Name Policy Number Policy Carbone Covered Member ID Carbone Member ID Guarantor Name 11/12/2024 1 [facility] (MEDICARE REPLACEMENT/A DVANTAGE - PPO) [id number] [place] [place] [id number] Oramel A [place] Notes Date Note Type Note Provider Name and Address Organization Details Recorded Time 11/12/2024 text/html He is here for swelling pain in his foot. Greenway to be warm to touch and tender. [...] breath. No slurred speech. Sp Bolanos MD [address] [facility], [place], [address], [facility] - [facility] - [place] & [place] 11/12/2024 12:45:51
== END 2025-01-10 23:59 | disposition home or self-care (01) ==
LOC: RAD 13:59
PROVIDERS: PCP Family Medicine; Visit Provider Internal Medicine Pulmonary Disease
DX: R91.1 Solitary pulmonary nodule (principal); J84.9 Interstitial pulmonary disease, unspecified
CPT/HCPCS: 71250

== ENCOUNTER → 2025-05-06 14:40 | Outpatient (CLI) | payer MEDICARE, SELFPAY ==
--- OUTSIDE RECORDS SUMMARY | 2025-05-06 14:46 | XMS_ITS | Encounter Summary ---
Author Organization [employer] ([place], [place], [place], [place]) Address [address] [place] [address] Care Team Providers Care Photography Spotter Name Role Phone Sunny Bolanos MD Primary Care Provider [phone] Encounter Details Date Type Department Care Team (Late st Contact Info) Description 10/13/[address] 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
--- OUTSIDE RECORDS SUMMARY | 2025-05-06 14:46 | XMS_ITS | Referral Summary ---
Author Organization [employer] ([place], [place], [place], [place]) Address [address] [place] [address] Care Team Providers Care Patient Admitting Clerk Name Role Phone Sunny Bolanos MD Primary Care Provider [phone] Allergies No known active allergies Medications timolol [...] drink = 0.6 oz pur e alcohol) Family and Community Support Answer Cy e Recorded Help with Day to Day Activities Not on file 08/13/2023 Feeling Lonely or Isolated Not on file 08/13 Educational Attainment Answer Date Kris rded Speak language other than Uzbek at home Not on file 08/13/2023 Want help with school or training Not on file 08/13/2023 Substance Use Answer Date Recorded Used prescription meds for non-medical reasons N ot on file 08/13/2023 Used illegal drugs past 12 months Not on file 08/13/2023 Sex and Gender Information Value Date Recorded Sex Assigned at Not on file 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 Gender Identity Not on file Sexual Orientation [...] on file Medical Devices Implanted Type Area University Lecturer Device Identifier Shelf Expiration Date Model / Serial / Lot Cement Bone Smplx 6194-1-001 - [id number] Implanted:Qt y: 1 on 09/20/2022 at [facility] IMPLANTS Right: Knee DALILA:[employer] [id number] 01/22/2024 6194-1-00 / [id number] D Cement Bone Smplx 6194-1-001 - [id number] Implanted:Qt y: 1 on 09/20/2022 at [facility] IMPLANTS Right: Knee DALILA:[employer] [id number] 02/22/2024 6194-1-00 [id number] D Psn Art Surf 14 Ve8-11gh Rt 61-9605-363- 14 - [id number] Implanted:Qt y: 1 on 09/20/2022 at [facility] TOTAL JOINT CONSTRUCT Right: Knee MAYDA:MAYDA [id number] 01/26/2026 42-5221-0 - / [id number] Tib Cemented Stem 5d Sz G R 92-3186-447- 02 - [id number] Implanted:Qt y: 1 on 09/20/2022 at [facility] TOTAL JOINT [employer]STRU[employer] Right: Knee MAYDA:MAYDA [id number] 05/24/2032 42-5320-0 79-02 / / [id number] Imp Knee Fem Psn Cr Cmt Sz11 R 17-9431-642- 02 - [id number] Implanted:Qt y: 1 on 09/20/2022 at [facility] TOTAL JOINT CONSTRUCT Right: Knee MAYDA:MAYDA [id number] 05/15/2032 42-5026-0 70-02 / [id number] Insurance MEDICARE ADVANTAGE Advance Directives For more information, please contact: [phone] Documents on File Type Date Recorded Patient Copy Clerk Expl anation Advance Directives and Livin g Will 09/20/2022 10:38 AM * Full Code (Latest Code Status on File) Date Activated Date Inactivated Comments 09/20/2022 5:07 PM 09/21/2022 5:08 PM * Full Code Date Activated Date Inactivated Comments 09/20/2022 11:01 AM 09/20/2022 5:06 PM Care Teams Patient Admitting Clerk Relationship Specialty Start Date End Date Sunny Bolanos MD [address] [address] PCP - General Family Medicine 09/14/22
--- OUTSIDE RECORDS SUMMARY | 2025-05-06 14:46 | XMS_ITS | Clinical Summary ---
Author Organization [facility] Address [address] [place] [address] Care Team Providers Care Loader Malt House Name Role Phone Sunny Bolanos MD Primary Care Provider [phone] Allergies Active Allergy Reactions Criticality Noted Date [...] (11/23/2022): Added automatically from request for surgery [id number] Lumbar spondylosis 12/14/2018 Status post total replacement of left hip 2017 Arthritis of knee 12/15/2017 Retention of urine 12/07/2017 Hip pain 11/04/2017 After cataract not obscuring vision, bilateral 1 Benign prostatic hyperplasia without urinary obs truction 12/02/2016 COLVIN (dyspnea on exertion) 09/27/2016 Primary open angle glaucoma of right eye, mild s tage 02/04/2016 Increased frequency of urination 11/28/2015 Lower urinary tract symptoms due to benign prostatic hyperplasia 11/28/2015 Raised prostate specific antigen 11/28/2015 Urinary urgency 11/28/2015 Resolved Problems Problem Noted Date Diagnosed Date Resolved Date Precordial pain 09/27/2016 04/14/2025 Immunizations Immunization Administration Dates Next Due Influenza Vaccine, Quadrivalent, Adjuvanted 06/25 Influenza, high-dose, quadrivalent 04/24/2020 Influenza, injectable, quadrivalent 05/02/2018 Moderna COVID-19 Vaccine (Experimental Psychologist) 12+ years 09/2020,08/28/2020 Pneumococcal Polysaccharide PPV23 09/01/2019 [...] Description 06/06/2025 11:00 AM EST Office Visit [facility] [address] [place] [address] Nora Escalante MD [address] [address] Health Maintenance Due Date Last [...] (2 of 2 - PCV) 09/01/2020 09/01/2019 [id number] Vaccine (3 - season) 2025 09/24/2020, 08/28/2020 [facility]-Influenza Vaccine (#1) 03/25/202506/12, 07/15/2021, 04/24/2020, Additional history exists [facility]-Obesity Intervention [...] this topic Medical Devices Implanted Type Area Underwater Trapper Device Identifier Shelf Expiration Date Model / Serial / Lot Shell Modular Redapt 56mm - [id number] Implanted:Qty: 1 on 01/31/2023 by Flako Hawkins MD at [facility] Right: Hip [employer]-[id number] 06/07/2032 [id number] / / [id number] Chg Lnr 20 Deg 56 - [id number] Implanted:Qty: 1 on 01/31/2023 by Flako Hawkins MD at [facility] Right: Hip [employer]-[id number] 11/14/2032 [id number] / / [id number] Chg Screw Ref Spher Head 20mm - [id number] Implanted:Qty: 1 on 01/31/2023 by Flako Hawkins MD at [facility] Right: Hip [employer]-[id number] 07/15/2032 [id number] / / [id number] Chg Screw Ref Spher Head 40mm - [id number] Implanted:Qty: 1 on 01/31/2023 by Flako Hawkins MD at [facility] Right: Hip [employer]-[id number] 05/30/2032 [id number] / / [id number] Polarstem Cementless Tiha 7 - [id number] Implanted:Qty: 1 on 01/31/2023 by Flako Hawkins MD at [facility] Right: Hip [employer]-[id number] 12/02/2028 [id number] / / [id number] Chg Head Oxin Mod Fem 40mm - [id number] Implanted:Qty: 1 on 01/31/2023 by Flako Hawkins MD at [facility] Right: Hip [employer]-[id number] 10/15/2032 [id number] / / [id number] Chg Sleeve Tit Mod Neck +0 - [id number] Implanted:Qty: 1 on 01/31/2023 by Flako Hawkins MD at [facility] Right: Hip [employer]-[id number] 07/27/2032 [id number] / / [id number] Insurance Julia8 ARIANNA FIGUEROA [id number] [facility] MEDICARE Advance Directives * Full Code (Latest Code Status on File) Date Activated Date Inactivated Comments 01/31/2023 8:26 AM 01/31/2023 5:53 PM Question Answer Comments Patient has decision-making capacity? Yes Care Teams Loader Malt House Relationship Specialty Start Date End Date Sunny Bolanos MD [address] [place] [address] [address] [place] [address] PCP - General 11/12/21
--- OUTSIDE RECORDS SUMMARY | 2025-05-06 14:46 | XMS_ITS | Clinical Summary ---
Author Organization [facility] ([place], [place], [place], [place]) Address [address] [place] [address] Care Team Providers Care Assistant Community Director Name Role Phone Sunny Bolanos MD Primary Care Provider [phone] Allergies No known active allergies Medications timolol [...] Date Kris rded Speak language other than Prydeinig at home Not on file 08/13/2023 Want help with school or training Not on file 08/13/2023 Substance Use Answer Date Recorded Used prescription meds for non-medical reasons N ot on file 08/13/2023 Used illegal drugs past 12 months Not on file 08/13/2023 Sex and Gender Information Value Date Recorded Sex Assigned at Not on file 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 Gender Identity Not on file Sexual Orientation [...] Cessation Counseling and Screening (12+) 09/20/2023 09/20/2022 Falls Risk Screening 07/25/2024 COVID-19 VACCINE (3 - season) 03/25/202509/2020, 08/28/2020 Influenza Vaccine (#1) 2025 07/15/2021, 2019 Medical Devices Implanted Type Area Billing Representative Device Identifier Shelf Expiration Date Model / Serial / Lot Cement Bone Smplx 6194-1-001 - [id number] Implanted:Qt y: 1 on 09/20/[facility] IMPLANTS Right: Knee [employer] [id number] 01/22/2024 6194 1 / / [id number] D Cement Bone Smplx Hv 6194-1-001 - [id number] Implanted:Qt y: 1 on 09/20/2022 at [facility] IMPLANTS Right: Knee [employer] [id number] 02/22/2024 [id number] 1 / / [id number] D Psn Art Surf 14 Ve8-11gh Rt 46-8920-001- 14 - [id number] Implanted:Qt y: 1 on 09/20/2022 at [facility] TOTAL JO[employer]STRU[employer] Right: Knee MAYDA:MAYDA [id number] 01/26/2026 42-5221-0 09-14 / / [id number] Tib Cemented Stem 5d Sz G R 78-1123-501- 02 - [id number] Implanted:Qt y: 1 on 09/20/2022 at [facility] [employer] Right: Knee MAYDA:MAYDA [id number] 05/24/2032 42-5320-0 79-02 / / [id number] Imp Knee Fem Psn Cr Cmt Sz11 R 15-1184-480- 02 - [id number] Implanted:Qt y: 1 on 09/20/2022 at [facility] [employer] Right: Knee MAYDA:MAYDA [id number] 05/15/2032 42-5026-0 70-02 / / [id number] Insurance [facility] MEDICARE ADVANTAGE Advance Directives For more information, please contact: [phone] Documents on File Type Date Recorded Patient Duplex Trimmer Expl anation Advance Directives and Radhahan g Will 09/20/2022 10:38 AM * Full Code (Latest Code Status on File) Date Activated Date Inactivated Comments 09/20/2022 5:07 PM 09/21/2022 5:08 PM * Full Code Date Activated Date Inactivated Comments 09/20/2022 11:01 AM 09/20/2022 5:06 PM Care Teams Assistant Community Director Relationship Specialty Start Date End Date Sunny Bolanos MD [facility] [id number] PCP - General Family Medicine 09/14/22
[2025-05-06 16:38] LABS: C-Reactive Protein 2.8 mg/L (0-4)
[2025-05-07 15:11] LABS: Antinuclear Antibodies (ANA) Negative (Negative)
[2025-05-11 00:11] LABS: I006-IgE Cockroach, German <0.10 kU/L (Class 0); T006-IgE Cedar, Mountain <0.10 kU/L (Class 0); T007-IgE Oak, White <0.10 kU/L (Class 0); T008-IgE Elm, American <0.10 kU/L (Class 0); T015-IgE Ash, White <0.10 kU/L (Class 0); T022-IgE Pecan, Hickory <0.10 kU/L (Class 0); W001-IgE Ragweed, Short <0.10 kU/L (Class 0); W011-IgE Thistle, Russian <0.10 kU/L (Class 0); W014-IgE Pigweed, Common <0.10 kU/L (Class 0)
== END ==
LOC: SL 14:41
PROVIDERS: PCP Family Medicine; Visit Provider Internal Medicine Pulmonary Disease
DX: J84.9 Interstitial pulmonary disease, unspecified (principal); J30.9 Allergic rhinitis, unspecified
CPT/HCPCS: 36415; 82785; 86003; 86038; 86140; 94762